=== PATIENT | female | born 1960 | race Caucasian/White ===

== ENCOUNTER 2017-09-02 13:18 | Emergency (ER) | payer MEDICAID ==
[~2017-09-02] VITALS: Ht 175.3 cm; Wt 90.9 kg
[~2017-09-02 13:18] MED LIST: CEPH-571 PO; CHOL500050 PO; FENO48TA15 PO; GABA600T2 PO; HYDR-569 PO; INSU100V36 SQ; LANTUS SQ; NEOM30OI16 TP
[2017-09-02] MEDS ORDERED: CYCL-1 PO (13:48)
[2017-09-02] MEDS ORDERED: HYDR-565 PO (13:48)
[2017-09-02 13:58] VITALS: BP 152/81
== END 2017-09-02 14:01 | disposition home or self-care (01) ==
LOC: ER 13:18
DX: S39.012A Strain of muscle, fascia and tendon of lower back, initial encounter (principal); M25.561 Pain in right knee; I10 Essential (primary) hypertension; E11.9 Type 2 diabetes mellitus without complications; G89.29 Other chronic pain; F17.200 Nicotine dependence, unspecified, uncomplicated; Z90.89 Acquired absence of other organs; Z98.890 Other specified postprocedural states; Z88.5 Allergy status to narcotic agent; Z79.4 Long term (current) use of insulin; Z79.899 Other long term (current) drug therapy; X50.1XXA Overexertion from prolonged static or awkward postures, initial encounter; Y93.02 Activity, running; Y92.89 Other specified places as the place of occurrence of the external cause; Y99.9 Unspecified external cause status
CPT/HCPCS: 73564; 99284; A6449

== ENCOUNTER 2017-10-21 08:08 | Emergency (ER) | payer MEDICAID ==
[~2017-10-21] VITALS: Ht 175.3 cm; Wt 90.0 kg
[~2017-10-21 08:08] MED LIST changes: +CYCL-1 PO
[2017-10-21 09:31] LABS: BASOPHILS % (AUTO) 0.5 % (0-1); EOSINOPHILS # (AUTO) 0.3 X10'3 (0-0.9); EOSINOPHILS % (AUTO) 3.2 % (0-6); HEMATOCRIT 40.6 % (35.0-45.0); HEMOGLOBIN 13.7 g/dl (12.0-16.0); LYMPHOCYTES # (AUTO) 2.4 X10'3 (1.1-4.8); LYMPHOCYTES % (AUTO) 25.7 % (21-51); MEAN CORPUSCULAR HEMOGLOBIN 27.3 PG (27.0-31.0); MEAN CORPUSCULAR HGB CONC 33.8 % (33.0-36.5); MEAN CORPUSCULAR VOLUME 80.9 FL (78-98); MEAN PLATELET VOLUME 8.6 FL (7.4-10.4); MONOCYTES # (AUTO) 0.5 X10'3 (0-0.9); MONOCYTES % (AUTO) 5.9 % (2-12); NEUTROPHILS % (AUTO) 64.7 % (42-75); PLATELET COUNT 216 X10'3 (140-440); RED BLOOD COUNT 5.02 X10'6 (4.20-5.60); RED CELL DISTRIBUTION WIDTH 13.6 % (11.5-14.5); WHITE BLOOD COUNT 9.2 X10'3 (4.5-11.0)
[2017-10-21 09:43] LABS: INR 0.9 INR; PARTIAL THROMBOPLASTIN TIME 26 SECONDS (22-32); PROTHROMBIN TIME 9.4 SECONDS (9.0-12.0)
[2017-10-21 09:48] LABS: ALANINE AMINOTRANSFERASE 11 U/L (12-78); ALBUMIN 3.6 G/DL (3.4-5.0); ALBUMIN/GLOBULIN RATIO 0.9 (1.1-1.5); ALKALINE PHOSPHATASE 85 IU/L (46-116); ANION GAP 11 (8-16); ASPARTATE AMINO TRANSFERASE 5 U/L (10-37); BILIRUBIN,TOTAL 0.3 MG/DL (0.1-1.0); BLOOD UREA NITROGEN 24 MG/DL (7-18); BUN/CREATININE RATIO 24.7 (6.6-38.0); CALCIUM 9.3 MG/DL (8.5-10.1); CHLORIDE 103 MMOL/L (99-107); CREATININE 0.97 MG/DL (0.40-0.90); GLUCOSE 337 MG/DL (70-104); POTASSIUM 4.7 MMOL/L (3.5-5.1); SODIUM 138 MMOL/L (135-145); TOTAL CARBON DIOXIDE 24.1 MMOL/L (24-32); TOTAL PROTEIN 7.5 G/DL (6.4-8.2); eGFR 59 ML/MIN
[2017-10-21] MEDS ORDERED: LIDO700A32 TOP (11:19)
[2017-10-21] MEDS ORDERED: CYCL-1 PO (11:19)
[2017-10-21] MEDS ORDERED: DICL100T2 PO (11:19)
[2017-10-21] MEDS ORDERED: DICL100G15 TOP (11:38)
[2017-10-21 11:46] VITALS: BP 160/110
== END 2017-10-21 11:48 | disposition home or self-care (01) ==
LOC: ER 08:09
DX: S16.1XXA Strain of muscle, fascia and tendon at neck level, initial encounter (principal); S29.019A Strain of muscle and tendon of unspecified wall of thorax, initial encounter; S39.012A Strain of muscle, fascia and tendon of lower back, initial encounter; S09.90XA Unspecified injury of head, initial encounter; I10 Essential (primary) hypertension; E11.9 Type 2 diabetes mellitus without complications; G89.29 Other chronic pain; Z98.890 Other specified postprocedural states; Z79.4 Long term (current) use of insulin; W01.0XXA Fall on same level from slipping, tripping and stumbling without subsequent striking against object, initial encounter; Y93.89 Activity, other specified; Y92.89 Other specified places as the place of occurrence of the external cause; Y99.8 Other external cause status
CPT/HCPCS: 36415; 70450; 72070; 72100; 72125; 80053; 85025; 85610; 85730; 99285

== ENCOUNTER 2018-09-12 14:33 | Emergency (ER) | payer MEDICAID ==
[~2018-09-12] VITALS: Ht 175.3 cm; Wt 89.5 kg
[~2018-09-12 14:33] MED LIST changes: +DICL100G15 TOP; +GABA600T13 PO; -GABA600T2 PO; +HYDR-4383 PO; -HYDR-569 PO; +LIDO700A32 TOP
[2018-09-12] MEDS ORDERED: CEPH-572 PO (17:02)
[2018-09-12 17:19] VITALS: BP 117/81
== END 2018-09-12 17:21 | disposition home or self-care (01) ==
LOC: ER 14:34
DX: S90.425A Blister (nonthermal), left lesser toe(s), initial encounter (principal); E11.42 Type 2 diabetes mellitus with diabetic polyneuropathy; I10 Essential (primary) hypertension; G89.29 Other chronic pain; F17.200 Nicotine dependence, unspecified, uncomplicated; Z90.89 Acquired absence of other organs; Z98.890 Other specified postprocedural states; Z88.5 Allergy status to narcotic agent; Z79.4 Long term (current) use of insulin; Z79.899 Other long term (current) drug therapy; W22.8XXA Striking against or struck by other objects, initial encounter; Y93.89 Activity, other specified; Y92.89 Other specified places as the place of occurrence of the external cause; Y99.8 Other external cause status
CPT/HCPCS: 73600; 73620; 82948; 99283

== ENCOUNTER 2019-06-22 14:14 | Emergency (ER) | payer MEDICAID ==
[~2019-06-22] VITALS: Ht 175.3 cm; Wt 91.0 kg
[2019-06-22 14:33] VITALS: BP 99/70
[2019-06-22] MEDS ORDERED: ketorolac trometh inj. 60 MG/2 ML VIAL IM ONE (15:30)
[2019-06-22] MEDS ORDERED: LIDOcaine 5% patch TP ONE (16:05)
== END 2019-06-22 16:15 | disposition home or self-care (01) ==
LOC: ER 14:16
DX: S33.5XXA Sprain of ligaments of lumbar spine, initial encounter (principal); G89.29 Other chronic pain; E11.42 Type 2 diabetes mellitus with diabetic polyneuropathy; I10 Essential (primary) hypertension; Z90.89 Acquired absence of other organs; Z98.890 Other specified postprocedural states; Z88.5 Allergy status to narcotic agent; Z79.4 Long term (current) use of insulin; Z79.899 Other long term (current) drug therapy; W18.39XA Other fall on same level, initial encounter; Y93.89 Activity, other specified; Y92.89 Other specified places as the place of occurrence of the external cause; Y99.8 Other external cause status
CPT/HCPCS: 72100; 96372; 99283; J1885

== ENCOUNTER 2020-03-05 15:31 | Emergency (ER) | payer MEDICAID ==
[~2020-03-05] VITALS: Ht 175.3 cm; Wt 79.5 kg
[~2020-03-05 15:31] MED LIST changes: +ALBU8HFA PO; +ASPI-1071 PO; +ATOR20TA66 PO; -CEPH-571 PO; +CEPH500C5 PO; -CHOL500050 PO; -CYCL-1 PO; -DICL100G15 TOP; -FENO48TA15 PO; +FLUO20CA39 PO; +FLUT16SP2 BOTHNARES; +GABA-530 PO; -GABA600T13 PO; -HYDR-4383 PO; +INSU100I31 SQ; -INSU100V36 SQ; -LANTUS SQ; -LIDO700A32 TOP; +LISI10TA4 PO; +MV-M1TAB19 PO; +NAPR-1154 PO; -NEOM30OI16 TP; +OMEP-50 PO; +PRAZ1CAP5 PO; +[UNRECOGNIZED DRUG - REMARK] SQVAC
[2020-03-05 16:53] LABS: ALANINE AMINOTRANSFERASE 14 U/L (12-78); ALKALINE PHOSPHATASE 63 IU/L (46-116); ANION GAP 10 (8-16); ASPARTATE AMINO TRANSFERASE 10 U/L (10-37); BILIRUBIN,TOTAL 0.4 MG/DL (0.1-1.0); BLOOD UREA NITROGEN 32 MG/DL (7-18); BUN/CREATININE RATIO 15.7 (6.6-38.0); CALCIUM 9.1 MG/DL (8.5-10.1); CHLORIDE 110 MMOL/L (99-107); CREATININE 2.04 MG/DL (0.40-0.90); GLUCOSE 58 MG/DL (70-104); POTASSIUM 3.5 MMOL/L (3.5-5.1); SODIUM 144 MMOL/L (135-145); TOTAL CARBON DIOXIDE 24.2 MMOL/L (24-32); eGFR 25 ML/MIN
[2020-03-05 16:57] LABS: BASOPHILS # (AUTO) 0.1 X10'3 (0-0.2); BASOPHILS % (AUTO) 0.9 % (0-1); EOSINOPHILS # (AUTO) 0.2 X10'3 (0-0.9); EOSINOPHILS % (AUTO) 2.5 % (0-6); HEMATOCRIT 33.3 % (35.0-45.0); LYMPHOCYTES # (AUTO) 3.3 X10'3 (1.1-4.8); LYMPHOCYTES % (AUTO) 39.4 % (21-51); MEAN CORPUSCULAR HEMOGLOBIN 27.2 PG (27.0-31.0); MEAN CORPUSCULAR HGB CONC 32.9 g/dL (33.0-36.5); MEAN CORPUSCULAR VOLUME 82.8 FL (78-98); MEAN PLATELET VOLUME 9.3 FL (7.4-10.4); MONOCYTES # (AUTO) 0.5 X10'3 (0-0.9); MONOCYTES % (AUTO) 6.1 % (2-12); NEUTROPHILS # (AUTO) 4.3 X10'3 (1.8-7.7); NEUTROPHILS % (AUTO) 51.1 % (42-75); PLATELET COUNT 182 X10'3 (140-440); RED BLOOD COUNT 4.02 X10'6 (4.20-5.60); RED CELL DISTRIBUTION WIDTH 13.2 % (11.5-14.5); WHITE BLOOD COUNT 8.5 X10'3 (4.5-11.0)
[2020-03-05] MEDS ORDERED: normal saline 1000ml 1,000 ML IV ONE (17:25)
[2020-03-05 17:37] LABS: ETHANOL < 0.010 GM/DL (0.0-0.010)
[2020-03-05] MEDS ORDERED: dextrose 50%-water 50ml dispensing syringe IV ONE (17:55)
[2020-03-05 18:13] LABS: MAGNESIUM 1.7 MG/DL (1.5-2.4)
[2020-03-05 19:30] LABS: CLARITY,URINE SLIGHTLY CLOUDY (Clear); COLOR,URINE YELLOW (Yellow); GLUCOSE, URINE >=1000 mg/dl (Neg); KETONES,URINE NEGATIVE (Neg); LEUKOCYTE ESTERASE ,URINE SMALL (Neg); NITRITES, URINE NEGATIVE (Neg); OCCULT BLOOD,URINE NEGATIVE (Neg); PH,URINE 5.5 (4.8-8.0); PROTEIN,URINE NEGATIVE (Neg); UROBILINOGEN,URINE 0.2 E.U/dL (0.2-1.0)
[2020-03-05 19:36] LABS: UA COLLECTION TYPE CLN CATCH MIDSTREAM
[2020-03-05 19:39] LABS: RBC,URINE 0-2 /HPF (0-2); WBC,URINE 0-4 /HPF (0-4)
[2020-03-05 19:40] LABS: BACTERIA,URINE FEW /HPF (Neg); MUCUS STRANDS MODERATE /LPF (Neg); SQUAMOUS EPITHELIAL CELL,UR MANY /LPF (FEW)
[2020-03-05 20:08] VITALS: BP 138/80
== END 2020-03-05 20:10 | disposition home or self-care (01) ==
LOC: ER 15:31
DX: E86.0 Dehydration (principal); R53.1 Weakness; R53.83 Other fatigue; E11.42 Type 2 diabetes mellitus with diabetic polyneuropathy; I10 Essential (primary) hypertension; G89.29 Other chronic pain; F17.200 Nicotine dependence, unspecified, uncomplicated; Z87.01 Personal history of pneumonia (recurrent); Z98.890 Other specified postprocedural states; Z60.2 Problems related to living alone; Z59.0 Homelessness; Z88.8 Allergy status to other drugs, medicaments and biological substances; Z79.82 Long term (current) use of aspirin; Z79.2 Long term (current) use of antibiotics; Z79.4 Long term (current) use of insulin; Z79.899 Other long term (current) drug therapy
CPT/HCPCS: 36415; 80053; 80320; 81001; 82948; 83735; 85025; 96361; 96374; 99285; J7030; 96360

== ENCOUNTER 2020-05-05 09:29 | Emergency (ER) | payer MEDICAID ==
[~2020-05-05] VITALS: Ht 175.3 cm; Wt 81.8 kg
--- NOTE | 2020-05-05 09:36 | NUR ---
EKG 0904
[2020-05-05] MEDS ORDERED: LORazepam 2 mg/ml vial IV ONE (10:05)
[2020-05-05] MEDS ORDERED: ondansetron/PF 4mg/2ml inj IV ONE (10:05)
[2020-05-05] MEDS ORDERED: morphine 4 MG/ML inj SYRINge IV ONE (10:05)
[2020-05-05 10:37] LABS: BASOPHILS # (AUTO) 0.1 X10'3 (0-0.2); BASOPHILS % (AUTO) 1.2 % (0-1); EOSINOPHILS # (AUTO) 0.3 X10'3 (0-0.9); EOSINOPHILS % (AUTO) 3.4 % (0-6); HEMATOCRIT 35.7 % (35.0-45.0); HEMOGLOBIN 11.6 g/dl (12.0-16.0); LYMPHOCYTES # (AUTO) 2.7 X10'3 (1.1-4.8); LYMPHOCYTES % (AUTO) 31.8 % (21-51); MEAN CORPUSCULAR HEMOGLOBIN 27.2 PG (27.0-31.0); MEAN CORPUSCULAR HGB CONC 32.6 g/dL (33.0-36.5); MEAN CORPUSCULAR VOLUME 83.4 FL (78-98); MEAN PLATELET VOLUME 8.2 FL (7.4-10.4); MONOCYTES # (AUTO) 0.5 X10'3 (0-0.9); MONOCYTES % (AUTO) 5.9 % (2-12); NEUTROPHILS # (AUTO) 4.9 X10'3 (1.8-7.7); NEUTROPHILS % (AUTO) 57.7 % (42-75); PLATELET COUNT 228 X10'3 (140-440); RED BLOOD COUNT 4.28 X10'6 (4.20-5.60); RED CELL DISTRIBUTION WIDTH 13.7 % (11.5-14.5); WHITE BLOOD COUNT 8.5 X10'3 (4.5-11.0)
[2020-05-05 10:52] LABS: PARTIAL THROMBOPLASTIN TIME 27 SECONDS (22-32)
[2020-05-05 10:56] LABS: ALANINE AMINOTRANSFERASE 26 U/L (12-78); ALBUMIN 3.3 G/DL (3.4-5.0); ALKALINE PHOSPHATASE 56 IU/L (46-116); ANION GAP 7 (8-16); ASPARTATE AMINO TRANSFERASE 17 U/L (10-37); BILIRUBIN,TOTAL 0.2 MG/DL (0.1-1.0); BLOOD UREA NITROGEN 18 MG/DL (7-18); CALCIUM 9.1 MG/DL (8.5-10.1); CHLORIDE 107 MMOL/L (99-107); GLUCOSE 164 MG/DL (70-104); POTASSIUM 4.4 MMOL/L (3.5-5.1); SODIUM 144 MMOL/L (135-145); TOTAL CARBON DIOXIDE 29.7 MMOL/L (24-32); TOTAL PROTEIN 6.6 G/DL (6.4-8.2); eGFR 57 ML/MIN
[2020-05-05] MEDS ORDERED: BACL-11 PO (12:20)
[2020-05-05 12:38] VITALS: BP 154/69
== END 2020-05-05 12:30 | disposition home or self-care (01) ==
LOC: ER 09:30
DX: R59.1 Generalized enlarged lymph nodes (principal); M54.2 Cervicalgia; J02.9 Acute pharyngitis, unspecified; R06.02 Shortness of breath; R07.89 Other chest pain; E11.42 Type 2 diabetes mellitus with diabetic polyneuropathy; I10 Essential (primary) hypertension; G89.29 Other chronic pain; Z87.01 Personal history of pneumonia (recurrent); Z86.73 Personal history of transient ischemic attack (TIA), and cerebral infarction without residual deficits; Z90.89 Acquired absence of other organs; Z98.890 Other specified postprocedural states; Z59.0 Homelessness; Z60.2 Problems related to living alone; Z88.8 Allergy status to other drugs, medicaments and biological substances; Z79.82 Long term (current) use of aspirin; Z79.4 Long term (current) use of insulin; Z79.899 Other long term (current) drug therapy; Z79.2 Long term (current) use of antibiotics
CPT/HCPCS: 36415; 71045; 80053; 83880; 84484; 85025; 85610; 85730; 93005; 96374; 96375; 99285; J2060; J2270; J2405

== ENCOUNTER 2020-06-06 10:29 | Emergency (ER) | payer MEDICAID ==
[~2020-06-06] VITALS: Ht 175.3 cm; Wt 87.0 kg
[~2020-06-06 10:29] MED LIST changes: +BACL-11 PO
[2020-06-06 11:20] VITALS: BP 194/93
== END 2020-06-06 12:00 | disposition home or self-care (01) ==
LOC: ER 10:30
DX: J02.9 Acute pharyngitis, unspecified (principal); M25.562 Pain in left knee; I10 Essential (primary) hypertension; E11.9 Type 2 diabetes mellitus without complications; G89.29 Other chronic pain; Z87.01 Personal history of pneumonia (recurrent); Z86.73 Personal history of transient ischemic attack (TIA), and cerebral infarction without residual deficits; Z90.89 Acquired absence of other organs; Z98.890 Other specified postprocedural states; Z60.2 Problems related to living alone; Z59.0 Homelessness; Z88.8 Allergy status to other drugs, medicaments and biological substances; Z79.82 Long term (current) use of aspirin; Z79.4 Long term (current) use of insulin; Z79.899 Other long term (current) drug therapy; Z79.2 Long term (current) use of antibiotics
CPT/HCPCS: 99281

== ENCOUNTER 2021-04-04 06:19 | Emergency (ER) | payer MEDICAID ==
[~2021-04-04] VITALS: Ht 175.3 cm; Wt 91.4 kg
[~2021-04-04 06:19] MED LIST changes: +CEPH-585 PO; -CEPH500C5 PO; +LISI10TA27 PO; -LISI10TA4 PO
[2021-04-04] MEDS ORDERED: normal saline 1000ML IV soln IVB ONE ×2 (06:35→08:15)
[2021-04-04 07:36] LABS: BASOPHILS # (AUTO) 0.1 X10'3 (0-0.2); BASOPHILS % (AUTO) 1.1 % (0-1); EOSINOPHILS # (AUTO) 0.4 X10'3 (0-0.9); EOSINOPHILS % (AUTO) 4.3 % (0-6); HEMATOCRIT 32.2 % (35.0-45.0); HEMOGLOBIN 10.7 g/dl (12.0-16.0); LYMPHOCYTES # (AUTO) 3.2 X10'3 (1.1-4.8); LYMPHOCYTES % (AUTO) 34.1 % (21-51); MEAN CORPUSCULAR HEMOGLOBIN 27.5 PG (27.0-31.0); MEAN CORPUSCULAR HGB CONC 33.1 g/dL (33.0-36.5); MEAN CORPUSCULAR VOLUME 83.1 FL (78-98); MONOCYTES # (AUTO) 0.6 X10'3 (0-0.9); MONOCYTES % (AUTO) 6.6 % (2-12); NEUTROPHILS # (AUTO) 5.1 X10'3 (1.8-7.7); NEUTROPHILS % (AUTO) 53.9 % (42-75); PLATELET COUNT 200 X10'3 (140-440); RED BLOOD COUNT 3.87 X10'6 (4.20-5.60); RED CELL DISTRIBUTION WIDTH 13.5 % (11.5-14.5); WHITE BLOOD COUNT 9.5 X10'3 (4.5-11.0)
[2021-04-04 07:51] LABS: ALANINE AMINOTRANSFERASE 20 U/L (12-78); ALBUMIN 3.2 G/DL (3.4-5.0); ALKALINE PHOSPHATASE 72 IU/L (46-116); ANION GAP 11 (8-16); ASPARTATE AMINO TRANSFERASE 14 U/L (10-37); BILIRUBIN,TOTAL 0.2 MG/DL (0.1-1.0); BLOOD UREA NITROGEN 41 MG/DL (7-18); BUN/CREATININE RATIO 25.3 (6.6-38.0); CALCIUM 8.5 MG/DL (8.5-10.1); CHLORIDE 109 MMOL/L (99-107); CREATININE 1.62 MG/DL (0.40-0.90); ETHANOL < 0.010 GM/DL (0.0-0.010); GLUCOSE 248 MG/DL (70-104); POTASSIUM 4.5 MMOL/L (3.5-5.1); SODIUM 144 MMOL/L (135-145); TOTAL CARBON DIOXIDE 23.7 MMOL/L (24-32); TOTAL PROTEIN 6.4 G/DL (6.4-8.2); eGFR 32 ML/MIN
[2021-04-04 09:06] LABS: CLARITY,URINE SLIGHTLY CLOUDY (Clear); COLOR,URINE YELLOW (Yellow); GLUCOSE, URINE 250 mg/dl (Neg); KETONES,URINE NEGATIVE (Neg); LEUKOCYTE ESTERASE ,URINE NEGATIVE (Neg); NITRITES, URINE NEGATIVE (Neg); OCCULT BLOOD,URINE SMALL (Neg); PH,URINE 5.5 (4.8-8.0); PROTEIN,URINE 100 mg/dl (Neg); UROBILINOGEN,URINE 0.2 E.U/dL (0.2-1.0)
[2021-04-04 09:13] LABS: UA COLLECTION TYPE STRAIGHT CATH
[2021-04-04 09:16] LABS: WBC,URINE 0-4 /HPF (0-4)
[2021-04-04 09:17] LABS: AMORPHOUS URATES 1+; BACTERIA,URINE FEW /HPF (Neg); HYALINE CASTS 0-3 /LPF (NEGATIVE); RBC,URINE 0-2 /HPF (0-2); SQUAMOUS EPITHELIAL CELL,UR FEW /LPF (FEW)
[2021-04-04 09:22] LABS: URINE AMPHETAMINE SCREEN NEGATIVE (Neg); URINE BARBITUATE SCREEN NEGATIVE (Neg); URINE BENZODIAZEPINES SCREEN NEGATIVE (Neg); URINE CANNABINOID SCREEN NEGATIVE (Neg); URINE COCAINE SCREEN NEGATIVE (Neg); URINE METHADONE SCREEN NEGATIVE (Neg); URINE OPIATE SCREEN NEGATIVE (Neg); URINE PHENCYCLIDINE SCREEN NEGATIVE (Neg)
[2021-04-04 12:40] VITALS: BP 191/86
== END 2021-04-04 13:55 | disposition home or self-care (01) ==
LOC: ER 06:20
DX: R41.0 Disorientation, unspecified (principal); R55 Syncope and collapse; R53.1 Weakness; R56.9 Unspecified convulsions; E11.42 Type 2 diabetes mellitus with diabetic polyneuropathy; I10 Essential (primary) hypertension; G89.29 Other chronic pain; Z86.73 Personal history of transient ischemic attack (TIA), and cerebral infarction without residual deficits; Z87.01 Personal history of pneumonia (recurrent); Z90.89 Acquired absence of other organs; Z98.890 Other specified postprocedural states; Z60.2 Problems related to living alone; Z59.0 Homelessness; Z88.8 Allergy status to other drugs, medicaments and biological substances; Z79.82 Long term (current) use of aspirin; Z79.4 Long term (current) use of insulin; Z79.2 Long term (current) use of antibiotics; Z79.899 Other long term (current) drug therapy
CPT/HCPCS: 36415; 70450; 71045; 80053; 80305; 80320; 81001; 82140; 85025; 93005; 96360; 96361; 99285; J7030

== ENCOUNTER 2021-09-03 17:27 | Emergency (ER) | payer MEDICAID ==
[~2021-09-03] VITALS: Ht 175.3 cm; Wt 96.9 kg
[2021-09-03 18:16] LABS: BASOPHILS # (AUTO) 0.1 X10'3 (0-0.2); BASOPHILS % (AUTO) 0.6 % (0-1); EOSINOPHILS # (AUTO) 0.4 X10'3 (0-0.9); EOSINOPHILS % (AUTO) 4.4 % (0-6); HEMATOCRIT 32.1 % (35.0-45.0); HEMOGLOBIN 10.6 g/dl (12.0-16.0); LYMPHOCYTES # (AUTO) 2.2 X10'3 (1.1-4.8); LYMPHOCYTES % (AUTO) 21.9 % (21-51); MEAN CORPUSCULAR HGB CONC 33.1 g/dL (33.0-36.5); MEAN CORPUSCULAR VOLUME 81.7 FL (78-98); MEAN PLATELET VOLUME 8.3 FL (7.4-10.4); MONOCYTES # (AUTO) 0.7 X10'3 (0-0.9); MONOCYTES % (AUTO) 6.9 % (2-12); NEUTROPHILS # (AUTO) 6.6 X10'3 (1.8-7.7); NEUTROPHILS % (AUTO) 66.2 % (42-75); PLATELET COUNT 242 X10'3 (140-440); RED BLOOD COUNT 3.94 X10'6 (4.20-5.60); RED CELL DISTRIBUTION WIDTH 14.2 % (11.5-14.5)
[2021-09-03 18:22] LABS: ALANINE AMINOTRANSFERASE 22 U/L (12-78); ALBUMIN 2.9 G/DL (3.4-5.0); ALBUMIN/GLOBULIN RATIO 0.7 (1.1-1.5); ALKALINE PHOSPHATASE 63 IU/L (46-116); ANION GAP 10 (8-16); ASPARTATE AMINO TRANSFERASE 23 U/L (10-37); BILIRUBIN,TOTAL 0.2 MG/DL (0.1-1.0); BLOOD UREA NITROGEN 29 MG/DL (7-18); BUN/CREATININE RATIO 16.9 (6.6-38.0); CALCIUM 9.2 MG/DL (8.5-10.1); CHLORIDE 106 MMOL/L (99-107); CREATININE 1.72 MG/DL (0.40-0.90); GLUCOSE 134 MG/DL (70-104); LIPASE 55 U/L (73-393); POTASSIUM 4.7 MMOL/L (3.5-5.1); SODIUM 140 MMOL/L (135-145); TOTAL CARBON DIOXIDE 24.4 MMOL/L (24-32); eGFR 30 ML/MIN
[2021-09-03 23:18] VITALS: BP 215/89
[2021-09-03 23:51] LABS: CLARITY,URINE CLOUDY (Clear); COLOR,URINE YELLOW (Yellow); GLUCOSE, URINE 100 mg/dl (Neg); KETONES,URINE NEGATIVE (Neg); LEUKOCYTE ESTERASE ,URINE NEGATIVE (Neg); NITRITES, URINE NEGATIVE (Neg); OCCULT BLOOD,URINE LARGE (Neg); PROTEIN,URINE >=300 mg/dl (Neg); UROBILINOGEN,URINE 0.2 E.U/dL (0.2-1.0)
[2021-09-03 23:56] LABS: UA COLLECTION TYPE NON-SPECIFIED
[2021-09-03 23:59] LABS: WBC,URINE 0-4 /HPF (0-4)
[2021-09-04] LABS: BACTERIA,URINE 1+ /HPF (Neg); MUCUS STRANDS FEW /LPF (Neg); SQUAMOUS EPITHELIAL CELL,UR FEW /LPF (FEW)
[2021-09-04 00:01] LABS: CELLULAR CAST 0-4 /LPF (NEGATIVE)
[2021-09-04 00:04] LABS: YEAST FEW /HPF (NEGATIVE)
[2021-09-04] MEDS ORDERED: acetaminophen w/codeine (30MG) #3 tablet PO ONE (00:45)
== END 2021-09-04 01:01 | disposition home or self-care (01) ==
LOC: ER 17:27
DX: R10.11 Right upper quadrant pain (principal); I10 Essential (primary) hypertension; E11.42 Type 2 diabetes mellitus with diabetic polyneuropathy; G89.29 Other chronic pain; F17.200 Nicotine dependence, unspecified, uncomplicated; Z86.73 Personal history of transient ischemic attack (TIA), and cerebral infarction without residual deficits; Z87.01 Personal history of pneumonia (recurrent); Z98.890 Other specified postprocedural states; Z90.89 Acquired absence of other organs; Z60.2 Problems related to living alone; Z59.00 Homelessness unspecified; Z88.8 Allergy status to other drugs, medicaments and biological substances; Z79.82 Long term (current) use of aspirin; Z79.2 Long term (current) use of antibiotics; Z79.4 Long term (current) use of insulin; Z79.899 Other long term (current) drug therapy
CPT/HCPCS: 36415; 74018; 80053; 81001; 83690; 85025; 87088; 99284

== ENCOUNTER 2021-09-18 12:30 | Emergency (ER) | payer MEDICAID ==
[~2021-09-18] VITALS: Ht 175.3 cm; Wt 96.8 kg
[~2021-09-18 12:30] MED LIST changes: -OMEP-50 PO; +OMEP20CA16 PO
[2021-09-18 12:49] VITALS: BP 186/85
[2021-09-18 13:16] LABS: BASOPHILS # (AUTO) 0.1 X10'3 (0-0.2); BASOPHILS % (AUTO) 1.1 % (0-1); EOSINOPHILS # (AUTO) 0.4 X10'3 (0-0.9); EOSINOPHILS % (AUTO) 3.7 % (0-6); HEMATOCRIT 36.4 % (35.0-45.0); HEMOGLOBIN 11.8 g/dl (12.0-16.0); LYMPHOCYTES # (AUTO) 2.3 X10'3 (1.1-4.8); LYMPHOCYTES % (AUTO) 21.6 % (21-51); MEAN CORPUSCULAR HEMOGLOBIN 26.9 PG (27.0-31.0); MEAN CORPUSCULAR HGB CONC 32.3 g/dL (33.0-36.5); MEAN CORPUSCULAR VOLUME 83.1 FL (78-98); MEAN PLATELET VOLUME 8.4 FL (7.4-10.4); MONOCYTES # (AUTO) 0.8 X10'3 (0-0.9); MONOCYTES % (AUTO) 7.3 % (2-12); NEUTROPHILS # (AUTO) 7.2 X10'3 (1.8-7.7); NEUTROPHILS % (AUTO) 66.3 % (42-75); PLATELET COUNT 252 X10'3 (140-440); RED BLOOD COUNT 4.38 X10'6 (4.20-5.60); RED CELL DISTRIBUTION WIDTH 14.4 % (11.5-14.5); WHITE BLOOD COUNT 10.8 X10'3 (4.5-11.0)
[2021-09-18 13:17] LABS: URINE HCG NEGATIVE (NEG)
[2021-09-18 13:20] LABS: CLARITY,URINE CLOUDY (Clear); COLOR,URINE YELLOW (Yellow); GLUCOSE, URINE 250 mg/dl (Neg); KETONES,URINE NEGATIVE (Neg); LEUKOCYTE ESTERASE ,URINE NEGATIVE (Neg); NITRITES, URINE NEGATIVE (Neg); OCCULT BLOOD,URINE MODERATE (Neg); PH,URINE 5.5 (4.8-8.0); PROTEIN,URINE >=300 mg/dl (Neg); UROBILINOGEN,URINE 0.2 E.U/dL (0.2-1.0)
[2021-09-18 13:23] LABS: UA COLLECTION TYPE CLN CATCH MIDSTREAM
[2021-09-18 13:25] LABS: SQUAMOUS EPITHELIAL CELL,UR MANY /LPF (FEW)
[2021-09-18 13:26] LABS: BACTERIA,URINE 2+ /HPF (Neg)
[2021-09-18 13:46] LABS: ALANINE AMINOTRANSFERASE 19 U/L (12-78); ALBUMIN/GLOBULIN RATIO 0.9 (1.1-1.5); ALKALINE PHOSPHATASE 70 IU/L (46-116); ANION GAP 11 (8-16); ASPARTATE AMINO TRANSFERASE 13 U/L (10-37); BILIRUBIN,TOTAL 0.1 MG/DL (0.1-1.0); BLOOD UREA NITROGEN 34 MG/DL (7-18); BUN/CREATININE RATIO 19.3 (6.6-38.0); CALCIUM 8.7 MG/DL (8.5-10.1); CHLORIDE 109 MMOL/L (99-107); CREATININE 1.76 MG/DL (0.40-0.90); GLUCOSE 88 MG/DL (70-104); LIPASE 456 U/L (73-393); POTASSIUM 4.7 MMOL/L (3.5-5.1); SODIUM 143 MMOL/L (135-145); TOTAL CARBON DIOXIDE 23.3 MMOL/L (24-32); TOTAL PROTEIN 6.3 G/DL (6.4-8.2); eGFR 29 ML/MIN
--- NOTE | 2021-09-18 14:56 | NUR ---
PATIENT REQUESTED TO HAVE BG CHECKED, STATES IT HAS BEEN A WHILE SINCE SHE HAS EATEN ANYTHING. BG 67, PATIENT GIVEN CRACKERS AND JUICE.
== END 2021-09-18 19:40 | disposition left against medical advice (07) ==
LOC: ER 12:31
DX: R10.11 Right upper quadrant pain (principal); R19.7 Diarrhea, unspecified; E11.42 Type 2 diabetes mellitus with diabetic polyneuropathy; I10 Essential (primary) hypertension; G89.29 Other chronic pain; Z86.73 Personal history of transient ischemic attack (TIA), and cerebral infarction without residual deficits; Z87.01 Personal history of pneumonia (recurrent); Z90.89 Acquired absence of other organs; Z98.890 Other specified postprocedural states; Z60.2 Problems related to living alone; Z59.00 Homelessness unspecified; Z88.8 Allergy status to other drugs, medicaments and biological substances; Z79.82 Long term (current) use of aspirin; Z79.2 Long term (current) use of antibiotics; Z79.4 Long term (current) use of insulin; Z79.899 Other long term (current) drug therapy
CPT/HCPCS: 36415; 80053; 81001; 81025; 82948; 83690; 85025; 99283

== ENCOUNTER 2022-12-30 18:00 | Inpatient (IN) | payer MEDICAID ==
[~2022-12-30] VITALS: Ht 157.5 cm; Wt 59.1 kg
--- NOTE | 2022-12-30 18:38 | NUR ---
assumed care from apurva kraus.
[2022-12-30 19:01] LABS: BASOPHILS % (AUTO) 0.4 % (0-1); EOSINOPHILS % (AUTO) 0.4 % (0-6); HEMOGLOBIN 12.1 g/dl (12.0-16.0); LYMPHOCYTES % (AUTO) 9.5 % (21-51); MEAN CORPUSCULAR HEMOGLOBIN 27.1 PG (27.0-31.0); MEAN CORPUSCULAR HGB CONC 32.8 g/dL (33.0-36.5); MEAN CORPUSCULAR VOLUME 82.7 FL (78-98); MEAN PLATELET VOLUME 8.8 FL (7.4-10.4); MONOCYTES # (AUTO) 0.9 X10'3 (0-0.9); MONOCYTES % (AUTO) 8.5 % (2-12); NEUTROPHILS # (AUTO) 8.9 X10'3 (1.8-7.7); NEUTROPHILS % (AUTO) 81.2 % (42-75); PLATELET COUNT 220 X10'3 (140-440); RED BLOOD COUNT 4.47 X10'6 (4.20-5.60); RED CELL DISTRIBUTION WIDTH 16.2 % (11.5-14.5); WHITE BLOOD COUNT 10.9 X10'3 (4.5-11.0)
[2022-12-30 19:13] LABS: ALANINE AMINOTRANSFERASE 249 U/L (12-78); ALBUMIN/GLOBULIN RATIO 0.9 (1.1-1.5); ALKALINE PHOSPHATASE 59 IU/L (46-116); ANION GAP 18 (8-16); ASPARTATE AMINO TRANSFERASE 29 U/L (10-37); BILIRUBIN,TOTAL 0.6 MG/DL (0.1-1.0); BLOOD UREA NITROGEN 53 MG/DL (7-18); BUN/CREATININE RATIO 20.2 (10.0-20.0); CHLORIDE 107 MMOL/L (99-107); CREATININE 2.63 MG/DL (0.40-0.90); GLUCOSE 186 MG/DL (70-104); MAGNESIUM 2.4 MG/DL (1.5-2.4); POTASSIUM 3.1 MMOL/L (3.5-5.1); SODIUM 144 MMOL/L (135-145); TOTAL CARBON DIOXIDE 19.1 MMOL/L (24-32); TOTAL PROTEIN 6.3 G/DL (6.4-8.2); eGFR 18 ML/MIN
[2022-12-30 19:42] LABS: CLARITY,URINE SLIGHTLY CLOUDY (Clear); COLOR,URINE YELLOW (Yellow); GLUCOSE, URINE NEGATIVE (Neg); KETONES,URINE TRACE mg/dl (Neg); LEUKOCYTE ESTERASE ,URINE NEGATIVE (Neg); NITRITES, URINE NEGATIVE (Neg); OCCULT BLOOD,URINE TRACE-INTACT (Neg); PROTEIN,URINE 100 mg/dl (Neg); UROBILINOGEN,URINE 0.2 E.U/dL (0.2-1.0)
[2022-12-30 19:48] LABS: UA COLLECTION TYPE STRAIGHT CATH
[2022-12-30 19:49] LABS: CELLULAR CAST 0-4 /LPF (NEGATIVE); COARSE GRANULAR CAST 0-3 /LPF (NEGATIVE); SQUAMOUS EPITHELIAL CELL,UR FEW /LPF (FEW)
[2022-12-30 19:52] LABS: AMORPHOUS URATES 1+; BACTERIA,URINE NONE SEEN /HPF (Neg)
[2022-12-30] MEDS ORDERED: CefTRIAXone 2gm/D5W 50ml BAG 50 ML IV ONE (20:05)
--- NOTE | 2022-12-30 20:30 | NUR ---
attempted to complete med rec, pt does not know pharmacy or which meds she takes nor does family at this itme.
[2022-12-30] MEDS ORDERED: temazepam 15mg capsule PO PRN (21:00)
[2022-12-30] MEDS ORDERED: ondansetron/PF 4mg/2ml inj IV PRN (21:55)
[2022-12-30] MEDS ORDERED: acetaminophen 325mg tablet PO PRN (21:55)
[2022-12-30] MEDS ORDERED: diphenhydrAMINE 50 mg/ml inj IV PRN (21:55)
[2022-12-30] MEDS ORDERED: ondansetron 4mg rapidly disintigrating tab PO PRN (21:55)
[2022-12-30] MEDS ORDERED: diphenhydrAMINE 25mg capsule PO PRN (21:55)
[2022-12-30] MEDS ORDERED: acetaminophen 650mg rectal suppository RC PRN (21:55)
[2022-12-30] MEDS ORDERED: potassium Cl 40MEQ/1/2NS 520ml 520 ML IV PRN (21:55)
[2022-12-30] MEDS ORDERED: magnesium 2GM in 50ml NS 50 ML IV PRN (21:55)
[2022-12-30] MEDS ORDERED: mag hydrox/Alum hydrox/simeth 30ml oral suspension PO PRN (21:55)
[2022-12-30] MEDS ORDERED: magnesium 4gm in 100ml NS 100 ML IV PRN (21:55)
[2022-12-30] MEDS ORDERED: magnesium Cl slow-release 64mg tablet PO PRN (21:55)
[2022-12-30] MEDS ORDERED: potassium Cl 20 mEq SR tablet PO PRN (21:55)
[2022-12-30] MEDS ORDERED: dextrose 50%-water 50ml dispensing syringe IV PRN ×2 (22:05)
[2022-12-30] MEDS ORDERED: DEXTROSE 15 GM of carb/4 tabs (each vial/BOTTLE has 4 tablets) PO PRN (22:05)
[2022-12-30] MEDS ORDERED: glucagon, human recombinant 1mg kit SUBCUT PRN (22:05)
[2022-12-30] MEDS ORDERED: MESSAGE TO PHARMACY PO ONE (22:05)
[2022-12-30 22:29] LABS: PHOSPHORUS 3.5 MG/DL (2.3-4.5)
[2022-12-30 22:31] LABS: HEMOGLOBIN A1C 6.3 % (4.5-6.2)
[2022-12-30 22:32] LABS: APTT 26 SECONDS (22-32)
[2022-12-30 22:43] LABS: CREATINE KINASE 70 U/L (26-192); LIPASE 54 U/L (73-393)
[2022-12-30] MEDS: normal saline 1000ml 1,000 ML IV SCH (22:45)
[2022-12-30 23:20] VITALS: BP 183/78
--- NOTE | 2022-12-30 23:20 | NUR ---
PATIENT ADMITTED TO ROOM 4020B FROM ER FOR ARF AND ALOC. PLACED COMFORTABLE IN BED. VITAL SIGNS TAKEN AND RECORDED.
--- NOTE | 2022-12-30 23:45 | NUR ---
CALLED DR. SONI WAS INFORMED OF PATIENT'S HIGH BLOOD PRESSURE 183/78 HR 71 WITH ORDER TO GIVE HYDRALAZINE 15MG IV Q6H PRN FOR SBP ABOVE 160.
[2022-12-30 23:47] LABS: URINE AMPHETAMINE SCREEN NEGATIVE (Neg); URINE BARBITUATE SCREEN NEGATIVE (Neg); URINE BENZODIAZEPINES SCREEN NEGATIVE (Neg); URINE CANNABINOID SCREEN NEGATIVE (Neg); URINE COCAINE SCREEN NEGATIVE (Neg); URINE METHADONE SCREEN NEGATIVE (Neg); URINE OPIATE SCREEN NEGATIVE (Neg); URINE PHENCYCLIDINE SCREEN NEGATIVE (Neg)
[2022-12-30] MEDS: hydrALAZINE 20mg/ml inj. IV PRN (23:58)
[2022-12-31 02:00] VITALS: BP 138/67
[2022-12-31 06:00] VITALS: BP 167/65
[2022-12-31 06:08] LABS: BASOPHILS # (AUTO) 0.1 X10'3 (0-0.2); BASOPHILS % (AUTO) 0.5 % (0-1); EOSINOPHILS # (AUTO) 0.1 X10'3 (0-0.9); EOSINOPHILS % (AUTO) 0.7 % (0-6); HEMATOCRIT 31.1 % (35.0-45.0); HEMOGLOBIN 10.3 g/dl (12.0-16.0); LYMPHOCYTES # (AUTO) 1.3 X10'3 (1.1-4.8); LYMPHOCYTES % (AUTO) 12.9 % (21-51); MEAN CORPUSCULAR HEMOGLOBIN 27.4 PG (27.0-31.0); MEAN CORPUSCULAR HGB CONC 33.2 g/dL (33.0-36.5); MEAN CORPUSCULAR VOLUME 82.7 FL (78-98); MEAN PLATELET VOLUME 8.9 FL (7.4-10.4); MONOCYTES # (AUTO) 1.1 X10'3 (0-0.9); MONOCYTES % (AUTO) 10.4 % (2-12); NEUTROPHILS # (AUTO) 7.7 X10'3 (1.8-7.7); NEUTROPHILS % (AUTO) 75.5 % (42-75); PLATELET COUNT 189 X10'3 (140-440); RED BLOOD COUNT 3.76 X10'6 (4.20-5.60); RED CELL DISTRIBUTION WIDTH 16.4 % (11.5-14.5); WHITE BLOOD COUNT 10.2 X10'3 (4.5-11.0)
--- NOTE | 2022-12-31 06:13 | NUR ---
Problems reprioritized. Patient report given, questions answered & plan of care reviewed with MICHELLE RHOADES.
[2022-12-31 06:19] LABS: ALANINE AMINOTRANSFERASE 169 U/L (12-78); ALBUMIN 2.3 G/DL (3.4-5.0); ALBUMIN/GLOBULIN RATIO 0.8 (1.1-1.5); ALKALINE PHOSPHATASE 46 IU/L (46-116); ANION GAP 15 (8-16); ASPARTATE AMINO TRANSFERASE 20 U/L (10-37); BILIRUBIN,TOTAL 0.4 MG/DL (0.1-1.0); BLOOD UREA NITROGEN 50 MG/DL (7-18); BUN/CREATININE RATIO 22.1 (10.0-20.0); CALCIUM 8.5 MG/DL (8.5-10.1); CHLORIDE 109 MMOL/L (99-107); CHOL/HDL RATIO 6.6 (0.00-4.99); CHOLESTEROL 304 MG/DL (0-200); CREATININE 2.26 MG/DL (0.40-0.90); GLUCOSE 181 MG/DL (70-104); HDL CHOLESTEROL 46 MG/DL (35-60); LDL CHOLESTEROL 183 MG/DL (50-100); MAGNESIUM 2.2 MG/DL (1.5-2.4); SODIUM 144 MMOL/L (135-145); TOTAL PROTEIN 5.2 G/DL (6.4-8.2); TRIGLYCERIDES 213 MG/DL (20-135); eGFR 22 ML/MIN
[2022-12-31] MEDS ORDERED: pantoprazole 40mg Tablet.DR PO SCH (07:30)
[2022-12-31] MEDS ORDERED: docusate sod 100mg capsule PO SCH (08:00)
[2022-12-31] MEDS: pantoprazole 40mg Tablet.DR PO SCH (08:24)
[2022-12-31] MEDS: nitrofuran monohydrate/nitrofuran macrocrysal 100 MG (MacroBID) capsule PO SCH ×2 (08:24→20:31)
[2022-12-31] MEDS: heparin, porcine 5000 units/ml vial SQ SCH ×2 (08:25→20:31)
[2022-12-31] MEDS: K and/or MAG REPLACEMENT MC SCH ×2 (08:26→20:00)
[2022-12-31] MEDS: potassium Cl 20 mEq SR tablet PO PRN ×2 (08:26→12:31)
[2022-12-31] MEDS: normal saline 1000ml 1,000 ML IV SCH ×2 (08:26→16:48)
[2022-12-31] MEDS ORDERED: FEXO-310 PO (08:29)
[2022-12-31] MEDS ORDERED: ROSU20TA31 PO (08:29)
[2022-12-31 10:00] VITALS: BP 176/76
[2022-12-31] MEDS: hydrALAZINE 20mg/ml inj. IV PRN ×2 (10:48→17:22)
[2022-12-31] MEDS: CefTRIAXone 2gm/D5W 50ml BAG 50 ML IV SCH (11:54)
[2022-12-31] MEDS: bisacodyl 10mg suppository rectal RC PRN (13:42)
--- NOTE | 2022-12-31 15:21 | NUR ---
PAGER ID: [phone] MESSAGE: Nehemias Jonas 4020B can i get an order for a sitter? please advise nikolas [phone]
--- NOTE | 2022-12-31 17:11 | NUR ---
reviewed and made changes to pre k teacher physical assessment of patient
[2022-12-31 18:00] VITALS: BP 167/106
--- NOTE | 2022-12-31 18:00 | NUR ---
I have reviewed and agree with interventions, assessments. and documentation by Marci Marsh LVN
[2022-12-31 18:08] LABS: ALANINE AMINOTRANSFERASE 158 U/L (12-78); ALBUMIN 2.8 G/DL (3.4-5.0); ALBUMIN/GLOBULIN RATIO 0.9 (1.1-1.5); ALKALINE PHOSPHATASE 53 IU/L (46-116); ANION GAP 17 (8-16); ASPARTATE AMINO TRANSFERASE 19 U/L (10-37); BILIRUBIN,TOTAL 0.4 MG/DL (0.1-1.0); BLOOD UREA NITROGEN 47 MG/DL (7-18); BUN/CREATININE RATIO 19.9 (10.0-20.0); CALCIUM 8.8 MG/DL (8.5-10.1); CHLORIDE 108 MMOL/L (99-107); CREATININE 2.36 MG/DL (0.40-0.90); GLUCOSE 253 MG/DL (70-104); POTASSIUM 4.4 MMOL/L (3.5-5.1); SODIUM 140 MMOL/L (135-145); TOTAL CARBON DIOXIDE 15.2 MMOL/L (24-32); eGFR 21 ML/MIN
--- NOTE | 2022-12-31 18:13 | NUR ---
PAGER ID: [phone] MESSAGE: Pritesh lynn 4020B critical CO2 of 15.2 thanks nikolas [phone]
--- NOTE | 2022-12-31 18:28 | NUR ---
Problems reprioritized. Patient report given, questions answered & plan of care reviewed with Sylvia.
--- NOTE | 2022-12-31 18:30 | NUR ---
Patient in room ORTHO 4020. I have received report from MICHELLE RHOADES and had the opportunity to ask questions and assume patient care.
[2022-12-31] MEDS: insulin Lispro (HumaLOG) vial - multi-dose SQ SCH (20:05)
[2022-12-31] MEDS: atorvastatin 20mg tablet PO SCH (20:31)
[2022-12-31] MEDS: insulin glargine (Lantus) pen - multi-dose SQ SCH (21:53)
[2022-12-31 22:00] VITALS: BP 167/96
[2023-01-01] MEDS: normal saline 1000ml 1,000 ML IV SCH ×4 (01:07→20:20)
[2023-01-01 01:20] VITALS: BP 199/96
[2023-01-01] MEDS: hydrALAZINE 20mg/ml inj. IV PRN ×2 (01:27→21:59)
[2023-01-01] MEDS: acetaminophen 325mg tablet PO PRN ×2 (03:25→21:43)
[2023-01-01 06:00] VITALS: BP 167/105
--- NOTE | 2023-01-01 06:20 | NUR ---
Patient in room ORTHO 4020. I have received report from SHUKRI GROVE and had the opportunity to ask questions and assume patient care.
[2023-01-01 06:23] LABS: BASOPHILS % (AUTO) 0.2 % (0-1); EOSINOPHILS % (AUTO) 0 % (0-6); HEMATOCRIT 31.6 % (35.0-45.0); HEMOGLOBIN 10.5 g/dl (12.0-16.0); LYMPHOCYTES # (AUTO) 1.2 X10'3 (1.1-4.8); LYMPHOCYTES % (AUTO) 8.7 % (21-51); MEAN CORPUSCULAR HEMOGLOBIN 27.5 PG (27.0-31.0); MEAN CORPUSCULAR HGB CONC 33.2 g/dL (33.0-36.5); MEAN CORPUSCULAR VOLUME 82.8 FL (78-98); MEAN PLATELET VOLUME 8.7 FL (7.4-10.4); MONOCYTES # (AUTO) 1.1 X10'3 (0-0.9); MONOCYTES % (AUTO) 7.8 % (2-12); NEUTROPHILS # (AUTO) 11.7 X10'3 (1.8-7.7); NEUTROPHILS % (AUTO) 83.3 % (42-75); PLATELET COUNT 206 X10'3 (140-440); RED BLOOD COUNT 3.81 X10'6 (4.20-5.60); RED CELL DISTRIBUTION WIDTH 16.3 % (11.5-14.5)
--- NOTE | 2023-01-01 06:28 | NUR ---
Problems reprioritized. Patient report given, questions answered & plan of care reviewed with STACIE RHOADES.
[2023-01-01 06:41] LABS: ALANINE AMINOTRANSFERASE 129 U/L (12-78); ALBUMIN 2.7 G/DL (3.4-5.0); ALBUMIN/GLOBULIN RATIO 0.9 (1.1-1.5); ALKALINE PHOSPHATASE 48 IU/L (46-116); ANION GAP 14 (8-16); ASPARTATE AMINO TRANSFERASE 34 U/L (10-37); BILIRUBIN,TOTAL 0.5 MG/DL (0.1-1.0); BLOOD UREA NITROGEN 37 MG/DL (7-18); BUN/CREATININE RATIO 17.2 (10.0-20.0); CALCIUM 8.9 MG/DL (8.5-10.1); CHLORIDE 113 MMOL/L (99-107); CREATININE 2.15 MG/DL (0.40-0.90); GLUCOSE 159 MG/DL (70-104); MAGNESIUM 2.1 MG/DL (1.5-2.4); POTASSIUM 4.5 MMOL/L (3.5-5.1); SODIUM 143 MMOL/L (135-145); TOTAL CARBON DIOXIDE 16.4 MMOL/L (24-32); TOTAL PROTEIN 5.8 G/DL (6.4-8.2); eGFR 23 ML/MIN
[2023-01-01] MEDS: K and/or MAG REPLACEMENT MC SCH ×2 (08:00→20:00)
[2023-01-01] MEDS: CefTRIAXone 2gm/D5W 50ml BAG 50 ML IV SCH (08:00)
[2023-01-01] MEDS: heparin, porcine 5000 units/ml vial SQ SCH ×2 (08:14→20:07)
[2023-01-01] MEDS: pantoprazole 40mg Tablet.DR PO SCH (08:14)
[2023-01-01] MEDS: aspirin 81mg, enteric-coated 1 TAB TABLET.DR PO SCH (08:14)
[2023-01-01] MEDS: nitrofuran monohydrate/nitrofuran macrocrysal 100 MG (MacroBID) capsule PO SCH ×2 (08:14→20:06)
[2023-01-01 10:00] VITALS: BP 172/85
--- NOTE | 2023-01-01 16:00 | NUR ---
I have reviewed and agree with assessments and documentation by Marci Marsh LVN.
--- NOTE | 2023-01-01 17:03 | NUR ---
IV bag unable to run r/t pt pulling IV out of arm and unsuccessfully attempting for new PIV, will get staff support with iV
[2023-01-01 18:00] VITALS: BP 161/74
--- NOTE | 2023-01-01 18:41 | NUR ---
Problems reprioritized. Patient report given, questions answered & plan of care reviewed with Rere GROVE.
[2023-01-01] MEDS: atorvastatin 20mg tablet PO SCH (20:06)
[2023-01-01] MEDS: insulin glargine (Lantus) pen - multi-dose SQ SCH (21:52)
[2023-01-01 22:00] VITALS: BP 182/88
[2023-01-01 23:55] VITALS: BP 149/70
[2023-01-01] MEDS: amLODIPine 5mg tablet PO SCH (23:59)
--- NOTE | 2023-01-02 06:30 | NUR ---
Patient in room ORTHO 4020. I have received report from Rere RN and had the opportunity to ask questions and assume patient care.
[2023-01-02 06:40] LABS: BASOPHILS % (AUTO) 0.1 % (0-1); EOSINOPHILS % (AUTO) 0.2 % (0-6); HEMATOCRIT 28.7 % (35.0-45.0); HEMOGLOBIN 9.5 g/dl (12.0-16.0); LYMPHOCYTES # (AUTO) 1.2 X10'3 (1.1-4.8); LYMPHOCYTES % (AUTO) 9.6 % (21-51); MEAN CORPUSCULAR HEMOGLOBIN 27.4 PG (27.0-31.0); MEAN CORPUSCULAR HGB CONC 33.2 g/dL (33.0-36.5); MEAN CORPUSCULAR VOLUME 82.6 FL (78-98); MEAN PLATELET VOLUME 8.6 FL (7.4-10.4); MONOCYTES % (AUTO) 7.9 % (2-12); NEUTROPHILS # (AUTO) 10.4 X10'3 (1.8-7.7); NEUTROPHILS % (AUTO) 82.2 % (42-75); PLATELET COUNT 195 X10'3 (140-440); RED BLOOD COUNT 3.48 X10'6 (4.20-5.60); RED CELL DISTRIBUTION WIDTH 17.1 % (11.5-14.5); WHITE BLOOD COUNT 12.7 X10'3 (4.5-11.0)
[2023-01-02 06:43] LABS: ALANINE AMINOTRANSFERASE 89 U/L (12-78); ALBUMIN 2.4 G/DL (3.4-5.0); ALBUMIN/GLOBULIN RATIO 0.9 (1.1-1.5); ALKALINE PHOSPHATASE 45 IU/L (46-116); ANION GAP 11 (8-16); ASPARTATE AMINO TRANSFERASE 30 U/L (10-37); BILIRUBIN,TOTAL 0.4 MG/DL (0.1-1.0); BLOOD UREA NITROGEN 29 MG/DL (7-18); CALCIUM 8.3 MG/DL (8.5-10.1); CHLORIDE 114 MMOL/L (99-107); CREATININE 1.93 MG/DL (0.40-0.90); GLUCOSE 132 MG/DL (70-104); POTASSIUM 3.7 MMOL/L (3.5-5.1); SODIUM 144 MMOL/L (135-145); TOTAL CARBON DIOXIDE 19.3 MMOL/L (24-32); TOTAL PROTEIN 5.1 G/DL (6.4-8.2); eGFR 26 ML/MIN
[2023-01-02 07:00] VITALS: BP 167/70
[2023-01-02] MEDS: nitrofuran monohydrate/nitrofuran macrocrysal 100 MG (MacroBID) capsule PO SCH ×2 (07:26→19:29)
[2023-01-02] MEDS: amLODIPine 5mg tablet PO SCH (07:27)
[2023-01-02] MEDS: acetaminophen 325mg tablet PO PRN ×2 (07:27→18:09)
[2023-01-02] MEDS: pantoprazole 40mg Tablet.DR PO SCH (07:27)
[2023-01-02] MEDS: lisinopril 20mg tablet PO SCH (07:28)
[2023-01-02] MEDS: heparin, porcine 5000 units/ml vial SQ SCH ×2 (07:28→19:29)
[2023-01-02] MEDS: aspirin 81mg, enteric-coated 1 TAB TABLET.DR PO SCH (07:28)
[2023-01-02] MEDS: normal saline 1000ml 1,000 ML IV SCH ×2 (07:29→19:29)
[2023-01-02] MEDS: K and/or MAG REPLACEMENT MC SCH ×2 (08:00→19:29)
[2023-01-02] MEDS: CefTRIAXone 2gm/D5W 50ml BAG 50 ML IV SCH (09:07)
[2023-01-02 10:00] VITALS: BP 161/73
[2023-01-02 11:00] VITALS: BP 149/85
[2023-01-02] MEDS: bisacodyl 10mg suppository rectal RC PRN (12:53)
--- NOTE | 2023-01-02 15:05 | NUR ---
BOX OFFICE AGENT documentation: I have reviewed and agree with all interventions, assessments performed and documented by Marly Tompkins LVN.
[2023-01-02 18:00] VITALS: BP 163/81
[2023-01-02] MEDS: insulin Lispro (HumaLOG) vial - multi-dose SQ SCH (18:09)
--- NOTE | 2023-01-02 18:54 | NUR ---
Problems reprioritized. Patient report given, questions answered & plan of care reviewed with Aide GROVE.
[2023-01-02] MEDS: atorvastatin 20mg tablet PO SCH (19:29)
[2023-01-02] MEDS: lactose-reduced food (Ensure Enlive) - 237ml bottle PO SCH (19:30)
[2023-01-02] MEDS: hydrALAZINE 20mg/ml inj. IV PRN (19:33)
[2023-01-02] MEDS: magnesium hydroxide 30ml (MOM) UD suspension PO PRN (19:34)
[2023-01-02 22:00] VITALS: BP 179/87
[2023-01-02] MEDS: insulin glargine (Lantus) pen - multi-dose SQ SCH (22:14)
[2023-01-03 06:00] VITALS: BP 178/85
--- NOTE | 2023-01-03 06:32 | NUR ---
reported to days. noted pt had large incont urine
--- NOTE | 2023-01-03 06:44 | NUR ---
Patient in room ORTHO 4020. I have received report from Aide and had the opportunity to ask questions and assume patient care.
[2023-01-03 06:54] LABS: BASOPHILS % (AUTO) 0.2 % (0-1); EOSINOPHILS % (AUTO) 0.1 % (0-6); HEMATOCRIT 28.6 % (35.0-45.0); HEMOGLOBIN 9.3 g/dl (12.0-16.0); LYMPHOCYTES # (AUTO) 1.3 X10'3 (1.1-4.8); LYMPHOCYTES % (AUTO) 9.1 % (21-51); MEAN CORPUSCULAR HGB CONC 32.4 g/dL (33.0-36.5); MEAN CORPUSCULAR VOLUME 83.4 FL (78-98); MEAN PLATELET VOLUME 8.3 FL (7.4-10.4); MONOCYTES # (AUTO) 1.1 X10'3 (0-0.9); MONOCYTES % (AUTO) 7.7 % (2-12); NEUTROPHILS # (AUTO) 11.6 X10'3 (1.8-7.7); NEUTROPHILS % (AUTO) 82.9 % (42-75); PLATELET COUNT 195 X10'3 (140-440); RED BLOOD COUNT 3.43 X10'6 (4.20-5.60); RED CELL DISTRIBUTION WIDTH 17.1 % (11.5-14.5); WHITE BLOOD COUNT 13.9 X10'3 (4.5-11.0)
[2023-01-03] MEDS: K and/or MAG REPLACEMENT MC SCH ×3 (06:54→20:00)
[2023-01-03 06:55] LABS: ALANINE AMINOTRANSFERASE 75 U/L (12-78); ALBUMIN 2.4 G/DL (3.4-5.0); ALBUMIN/GLOBULIN RATIO 0.9 (1.1-1.5); ALKALINE PHOSPHATASE 46 IU/L (46-116); ANION GAP 10 (8-16); ASPARTATE AMINO TRANSFERASE 42 U/L (10-37); BILIRUBIN,TOTAL 0.3 MG/DL (0.1-1.0); BLOOD UREA NITROGEN 23 MG/DL (7-18); BUN/CREATININE RATIO 13.7 (10.0-20.0); CALCIUM 8.2 MG/DL (8.5-10.1); CHLORIDE 115 MMOL/L (99-107); CREATININE 1.68 MG/DL (0.40-0.90); GLUCOSE 75 MG/DL (70-104); MAGNESIUM 2.2 MG/DL (1.5-2.4); POTASSIUM 3.4 MMOL/L (3.5-5.1); SODIUM 145 MMOL/L (135-145); TOTAL CARBON DIOXIDE 20.5 MMOL/L (24-32); TOTAL PROTEIN 5.1 G/DL (6.4-8.2); eGFR 31 ML/MIN
[2023-01-03] MEDS: lactose-reduced food (Ensure Enlive) - 237ml bottle PO SCH ×2 (08:17→20:00)
[2023-01-03] MEDS: amLODIPine 5mg tablet PO SCH (08:24)
[2023-01-03] MEDS: pantoprazole 40mg Tablet.DR PO SCH (08:24)
[2023-01-03] MEDS: nitrofuran monohydrate/nitrofuran macrocrysal 100 MG (MacroBID) capsule PO SCH ×2 (08:24→21:32)
[2023-01-03] MEDS: lisinopril 20mg tablet PO SCH (08:24)
[2023-01-03] MEDS: CefTRIAXone 2gm/D5W 50ml BAG 50 ML IV SCH (08:24)
[2023-01-03] MEDS: heparin, porcine 5000 units/ml vial SQ SCH ×2 (08:25→21:33)
[2023-01-03] MEDS: aspirin 81mg, enteric-coated 1 TAB TABLET.DR PO SCH (08:25)
[2023-01-03 10:00] VITALS: BP 193/98
--- NOTE | 2023-01-03 10:54 | NUR ---
Message: Mary Jonas in 7660B - Bladder scan had over 700ml. Can I straight cath? -Susan [phone]
--- NOTE | 2023-01-03 11:08 | NUR ---
Message: 2nd page for Mary Jonas - need straight cath order. Pt has greater than 700 ml in bladder. -Susan [phone]
[2023-01-03 11:45] VITALS: BP 148/80
[2023-01-03 11:58] LABS: COLOR,URINE YELLOW (Yellow); GLUCOSE, URINE 100 mg/dl (Neg); KETONES,URINE NEGATIVE (Neg); LEUKOCYTE ESTERASE ,URINE NEGATIVE (Neg); NITRITES, URINE NEGATIVE (Neg); OCCULT BLOOD,URINE SMALL (Neg); PROTEIN,URINE 100 mg/dl (Neg); UROBILINOGEN,URINE 0.2 E.U/dL (0.2-1.0)
[2023-01-03 12:04] LABS: UA COLLECTION TYPE NON-SPECIFIED
[2023-01-03 12:06] LABS: CLARITY,URINE SLIGHTLY CLOUDY (Clear)
[2023-01-03 12:07] LABS: BACTERIA,URINE FEW /HPF (Neg); MUCUS STRANDS MODERATE /LPF (Neg); RBC,URINE 0-2 /HPF (0-2); RENAL CELLS, URINE FEW /HPF; SQUAMOUS EPITHELIAL CELL,UR NONE SEEN /LPF (FEW); TRANSITIONAL EPI CELLS,URINE FEW /HPF; WBC,URINE 0-4 /HPF (0-4)
[2023-01-03 12:08] LABS: FINE GRANULAR CAST 0-3 /LPF (NEGATIVE); HYALINE CASTS 0-3 /LPF (NEGATIVE)
[2023-01-03] MEDS ORDERED: magnesium 2GM in 50ml NS 50 ML IV PRN (13:20)
[2023-01-03] MEDS ORDERED: potassium Cl 20 mEq SR tablet PO PRN (13:20)
[2023-01-03] MEDS ORDERED: magnesium 4gm in 100ml NS 100 ML IV PRN (13:20)
[2023-01-03] MEDS ORDERED: magnesium Cl slow-release 64mg tablet PO PRN (13:20)
[2023-01-03] MEDS ORDERED: potassium Cl 40MEQ/1/2NS 520ml 520 ML IV PRN (13:20)
[2023-01-03 15:23] VITALS: BP 144/71
[2023-01-03] MEDS: normal saline 1000ml 1,000 ML IV SCH ×2 (16:11→18:06)
[2023-01-03] MEDS: potassium Cl 20 mEq SR tablet PO PRN (16:20)
--- NOTE | 2023-01-03 17:50 | NUR ---
Bladder scan - 405ml
[2023-01-03 18:00] VITALS: BP 144/71
[2023-01-03] MEDS: insulin Lispro (HumaLOG) vial - multi-dose SQ SCH (19:35)
[2023-01-03] MEDS: insulin glargine (Lantus) pen - multi-dose SQ SCH (21:00)
[2023-01-03] MEDS: atorvastatin 20mg tablet PO SCH (21:32)
[2023-01-03 22:00] VITALS: BP 122/74
--- NOTE | 2023-01-04 00:30 | NUR ---
Page Sent PAGER ID: [phone] MESSAGE: [id number]: Mary Jonas: pt restless and unable to sleep. pt confused and unable to follow commands. can we get RX to help pt sleep. thank you Dulce Maria ext [phone]
[2023-01-04] MEDS ORDERED: LORazepam 2 mg/ml vial IV PRN (00:35)
[2023-01-04] MEDS: normal saline 1000ml 1,000 ML IV SCH (02:33)
[2023-01-04 05:10] LABS: BASOPHILS % (AUTO) 0.2 % (0-1); EOSINOPHILS # (AUTO) 0.1 X10'3 (0-0.9); EOSINOPHILS % (AUTO) 0.4 % (0-6); HEMATOCRIT 28.4 % (35.0-45.0); LYMPHOCYTES # (AUTO) 1.4 X10'3 (1.1-4.8); LYMPHOCYTES % (AUTO) 10.8 % (21-51); MEAN CORPUSCULAR HEMOGLOBIN 26.4 PG (27.0-31.0); MEAN CORPUSCULAR HGB CONC 31.6 g/dL (33.0-36.5); MEAN CORPUSCULAR VOLUME 83.6 FL (78-98); MEAN PLATELET VOLUME 8.5 FL (7.4-10.4); MONOCYTES # (AUTO) 1.2 X10'3 (0-0.9); MONOCYTES % (AUTO) 9.1 % (2-12); NEUTROPHILS # (AUTO) 10.1 X10'3 (1.8-7.7); NEUTROPHILS % (AUTO) 79.5 % (42-75); PLATELET COUNT 207 X10'3 (140-440); RED CELL DISTRIBUTION WIDTH 17.6 % (11.5-14.5); WHITE BLOOD COUNT 12.7 X10'3 (4.5-11.0)
[2023-01-04 05:17] LABS: ALANINE AMINOTRANSFERASE 63 U/L (12-78); ALBUMIN 2.5 G/DL (3.4-5.0); ALBUMIN/GLOBULIN RATIO 0.9 (1.1-1.5); ALKALINE PHOSPHATASE 51 IU/L (46-116); ANION GAP 8 (8-16); ASPARTATE AMINO TRANSFERASE 27 U/L (10-37); BILIRUBIN,TOTAL 0.3 MG/DL (0.1-1.0); BLOOD UREA NITROGEN 19 MG/DL (7-18); BUN/CREATININE RATIO 11.6 (10.0-20.0); CHLORIDE 117 MMOL/L (99-107); CREATININE 1.64 MG/DL (0.40-0.90); GLUCOSE 121 MG/DL (70-104); POTASSIUM 3.6 MMOL/L (3.5-5.1); SODIUM 147 MMOL/L (135-145); TOTAL CARBON DIOXIDE 21.8 MMOL/L (24-32); TOTAL PROTEIN 5.2 G/DL (6.4-8.2); eGFR 32 ML/MIN
[2023-01-04 06:00] VITALS: BP 161/82
--- NOTE | 2023-01-04 06:33 | NUR ---
Patient in room ORTHO 4020. I have received report from Anita and had the opportunity to ask questions and assume patient care.
[2023-01-04] MEDS: K and/or MAG REPLACEMENT MC SCH ×4 (06:42→20:00)
[2023-01-04] MEDS: aspirin 81mg, enteric-coated 1 TAB TABLET.DR PO SCH (07:33)
[2023-01-04] MEDS: CefTRIAXone 2gm/D5W 50ml BAG 50 ML IV SCH (07:33)
[2023-01-04] MEDS: pantoprazole 40mg Tablet.DR PO SCH (07:33)
[2023-01-04] MEDS: lisinopril 20mg tablet PO SCH (07:34)
[2023-01-04] MEDS: nitrofuran monohydrate/nitrofuran macrocrysal 100 MG (MacroBID) capsule PO SCH ×2 (07:34→20:24)
[2023-01-04] MEDS: heparin, porcine 5000 units/ml vial SQ SCH ×2 (07:34→20:25)
[2023-01-04] MEDS: amLODIPine 5mg tablet PO SCH (07:34)
[2023-01-04] MEDS: lactose-reduced food (Ensure Enlive) - 237ml bottle PO SCH ×2 (07:35→20:53)
[2023-01-04 08:45] VITALS: BP 165/85
[2023-01-04] MEDS: acetaminophen 325mg tablet PO PRN ×2 (08:45→16:12)
--- NOTE | 2023-01-04 12:23 | NUR ---
Initial: Pt admit for acute renal failure with metabolic encephalopathy and hypokalemia. Per EMR pt A/O x 1 and confused, with a sitter at bedside. Pt on a CHO controlled diet and overall eating poorly, documented with mostly 0-25% PO intake of meals with the exception of ~56% PO intake of the first two meals. Pt receiving an Ensure Enlive BID with decent acceptance, averaging 58% PO intake of three ONS with refusal x 1. D/w RN recommendation to increase ONS frequency to TID and liberalize to regular diet given poor PO intake and T2DM well controlled with A1c 6.3%. LBM 01/03, documented with 21 BMs per I&O, possibly an error as pt documented with no GI symptoms. Will continue to follow closely and make recommendations as appropriate. Recommendations: 1) Liberalize to regular diet given poor meal acceptance and T2DM well controlled with A1c 6.3%-d/w RN 01/04 2) Increase Ensure Enlive BID to TID to optimize nutrient intake-d/w RN 01/04 3) Encourage PO intake; assist with meals as needed given ALOC 4) PRN bowel care 5) Scaled weight this admit; subsequent weekly scaled weights Addendum: 01/04/23 at [address] Amended: Links added.
[2023-01-04] MEDS: potassium CL 20mEq in D5-1/2NS 1,000 ML IV SCH (13:33)
[2023-01-04] MEDS: hydrALAZINE 20mg/ml inj. IV PRN (17:16)
[2023-01-04 19:00] VITALS: BP 165/82
[2023-01-04] MEDS: atorvastatin 20mg tablet PO SCH (20:24)
[2023-01-04] MEDS: insulin glargine (Lantus) pen - multi-dose SQ SCH (20:54)
[2023-01-04 23:00] VITALS: BP 149/78
[2023-01-05] MEDS: bisacodyl 10mg suppository rectal RC PRN
--- NOTE | 2023-01-05 01:53 | NUR ---
AGREE WITH ARRESTING GEAR OPERATOR PHYSICAL ASSESSMENT CHARTED.
--- NOTE | 2023-01-05 02:13 | NUR ---
Page sent to MD - Pt 2150P, Carolee Jim, has large hard impacted stool in rectum, given suppository without effect, pt has alot of discomfort. May we have an order for an enema? None currently ordered. Thank you, Genny Howard @[phone].
--- NOTE | 2023-01-05 02:30 | NUR ---
MD responded to page with verbal order to administer castile soap enema. Enema administered, no immediate results. Will continue to monitor.
[2023-01-05 04:42] LABS: ALANINE AMINOTRANSFERASE 57 U/L (12-78); ALBUMIN 2.4 G/DL (3.4-5.0); ALBUMIN/GLOBULIN RATIO 0.9 (1.1-1.5); ALKALINE PHOSPHATASE 55 IU/L (46-116); ANION GAP 9 (8-16); ASPARTATE AMINO TRANSFERASE 37 U/L (10-37); BILIRUBIN,TOTAL 0.4 MG/DL (0.1-1.0); BLOOD UREA NITROGEN 24 MG/DL (7-18); BUN/CREATININE RATIO 13.3 (10.0-20.0); CALCIUM 8.2 MG/DL (8.5-10.1); CHLORIDE 113 MMOL/L (99-107); GLUCOSE 215 MG/DL (70-104); MAGNESIUM 1.9 MG/DL (1.5-2.4); PHOSPHORUS 1.6 MG/DL (2.3-4.5); POTASSIUM 3.3 MMOL/L (3.5-5.1); SODIUM 144 MMOL/L (135-145); TOTAL CARBON DIOXIDE 21.6 MMOL/L (24-32); TOTAL PROTEIN 5.2 G/DL (6.4-8.2); eGFR 29 ML/MIN
[2023-01-05 04:49] LABS: BASOPHILS % (AUTO) 0.1 % (0-1); EOSINOPHILS # (AUTO) 0.1 X10'3 (0-0.9); EOSINOPHILS % (AUTO) 0.4 % (0-6); HEMATOCRIT 28.4 % (35.0-45.0); HEMOGLOBIN 9.1 g/dl (12.0-16.0); LYMPHOCYTES # (AUTO) 0.9 X10'3 (1.1-4.8); LYMPHOCYTES % (AUTO) 6.2 % (21-51); MEAN CORPUSCULAR HGB CONC 32.1 g/dL (33.0-36.5); MEAN CORPUSCULAR VOLUME 84.1 FL (78-98); MEAN PLATELET VOLUME 8.4 FL (7.4-10.4); MONOCYTES # (AUTO) 1.2 X10'3 (0-0.9); MONOCYTES % (AUTO) 8.4 % (2-12); NEUTROPHILS # (AUTO) 12.6 X10'3 (1.8-7.7); NEUTROPHILS % (AUTO) 84.9 % (42-75); PLATELET COUNT 198 X10'3 (140-440); RED BLOOD COUNT 3.38 X10'6 (4.20-5.60); RED CELL DISTRIBUTION WIDTH 17.7 % (11.5-14.5); WHITE BLOOD COUNT 14.9 X10'3 (4.5-11.0)
--- NOTE | 2023-01-05 05:50 | NUR ---
LN completed bladder scan q4hrs overnight - @ 2300 160cc, @0200 200cc, @0545 360cc, with small amount of brown urine noted in brief 2x overnight. Pt still has not had a bowel movement, will give information in report to day nurse to follow up.
[2023-01-05 06:00] VITALS: BP 159/70
--- NOTE | 2023-01-05 06:56 | NUR ---
Patient in room ORTHO 4020. I have received report from JF leslie and had the opportunity to ask questions and assume patient care.
[2023-01-05] MEDS: CefTRIAXone 2gm/D5W 50ml BAG 50 ML IV SCH (07:15)
[2023-01-05] MEDS: K and/or MAG REPLACEMENT MC SCH ×4 (08:00→18:27)
[2023-01-05] MEDS: pantoprazole 40mg Tablet.DR PO SCH (08:20)
[2023-01-05] MEDS: aspirin 81mg, enteric-coated 1 TAB TABLET.DR PO SCH (08:21)
[2023-01-05] MEDS: heparin, porcine 5000 units/ml vial SQ SCH ×2 (08:21→19:56)
[2023-01-05] MEDS: nitrofuran monohydrate/nitrofuran macrocrysal 100 MG (MacroBID) capsule PO SCH ×2 (08:21→19:55)
[2023-01-05] MEDS: lisinopril 20mg tablet PO SCH (08:24)
[2023-01-05] MEDS: lactose-reduced food (Ensure Enlive) - 237ml bottle PO SCH ×3 (08:24→20:01)
[2023-01-05] MEDS: amLODIPine 5mg tablet PO SCH (08:24)
[2023-01-05] MEDS: potassium Cl 20 mEq SR tablet PO PRN ×3 (08:34→20:03)
--- NOTE | 2023-01-05 08:38 | NUR ---
Per EMR pt with a Moises of 12. No edema and skin is intact per EMR. Addendum: 01/05/23 at [address] Amended: Links added.
[2023-01-05] MEDS: potassium CL 20mEq in D5-1/2NS 1,000 ML IV SCH (09:22)
--- NOTE | 2023-01-05 11:42 | NUR ---
Patient was bladder scanned with results of 639ml, assisted patient on bed cooper and was unable to void. Straight cath with an output of 500ml. Bladder scanned patient Post void with results of 97ml.
--- NOTE | 2023-01-05 15:41 | NUR ---
Patient has had no bowel movement, hard stool at rectum. Patient having hard time trying to defecate. MD was informed with order for soap adrián enema. Soap Adrián enema was administered with no results at this time. Will continue to monitor.
[2023-01-05 18:00] VITALS: BP 188/76
--- NOTE | 2023-01-05 18:22 | NUR ---
Problems reprioritized. Patient report given, questions answered & plan of care reviewed with MAINE Gotti.
[2023-01-05 19:10] VITALS: BP 138/85
[2023-01-05] MEDS: docusate sod 100mg capsule PO SCH (19:55)
[2023-01-05] MEDS: atorvastatin 20mg tablet PO SCH (19:55)
[2023-01-05] MEDS: polyethylene glycol 3350 17gm powd pack PO SCH (19:56)
[2023-01-05] MEDS: insulin glargine (Lantus) pen - multi-dose SQ SCH (21:00)
[2023-01-05 22:00] VITALS: BP 132/66
[2023-01-06] MEDS: acetaminophen 325mg tablet PO PRN (00:44)
--- NOTE | 2023-01-06 02:04 | NUR ---
scanned bladder 100mL. did not cath
[2023-01-06] MEDS: potassium CL 20mEq in D5-1/2NS 1,000 ML IV SCH (04:48)
--- NOTE | 2023-01-06 05:05 | NUR ---
unable to void, bladder scanned for 315
--- NOTE | 2023-01-06 06:25 | NUR ---
Problems reprioritized. Patient report given, questions answered & plan of care reviewed with MAINE Covarrubias.
[2023-01-06] MEDS: CefTRIAXone 2gm/D5W 50ml BAG 50 ML IV SCH (07:04)
--- NOTE | 2023-01-06 07:13 | NUR ---
Patient in room ORTHO 4020. I have received report from DODIE GROVE and had the opportunity to ask questions and assume patient care.
[2023-01-06] MEDS: K and/or MAG REPLACEMENT MC SCH ×4 (08:00→20:00)
[2023-01-06 08:17] LABS: BASOPHILS % (AUTO) 0.3 % (0-1); EOSINOPHILS # (AUTO) 0.2 X10'3 (0-0.9); EOSINOPHILS % (AUTO) 1.7 % (0-6); HEMATOCRIT 25.3 % (35.0-45.0); HEMOGLOBIN 8.3 g/dl (12.0-16.0); LYMPHOCYTES # (AUTO) 1.5 X10'3 (1.1-4.8); LYMPHOCYTES % (AUTO) 14.7 % (21-51); MEAN CORPUSCULAR HEMOGLOBIN 27.5 PG (27.0-31.0); MEAN CORPUSCULAR VOLUME 83.3 FL (78-98); MEAN PLATELET VOLUME 8.4 FL (7.4-10.4); MONOCYTES # (AUTO) 1.2 X10'3 (0-0.9); MONOCYTES % (AUTO) 11.8 % (2-12); NEUTROPHILS # (AUTO) 7.5 X10'3 (1.8-7.7); NEUTROPHILS % (AUTO) 71.5 % (42-75); PLATELET COUNT 153 X10'3 (140-440); RED BLOOD COUNT 3.04 X10'6 (4.20-5.60); RED CELL DISTRIBUTION WIDTH 17.4 % (11.5-14.5); WHITE BLOOD COUNT 10.5 X10'3 (4.5-11.0)
[2023-01-06 08:30] LABS: ALANINE AMINOTRANSFERASE 40 U/L (12-78); ALBUMIN/GLOBULIN RATIO 0.8 (1.1-1.5); ALKALINE PHOSPHATASE 48 IU/L (46-116); ANION GAP 6 (8-16); ASPARTATE AMINO TRANSFERASE 30 U/L (10-37); BILIRUBIN,TOTAL 0.2 MG/DL (0.1-1.0); BLOOD UREA NITROGEN 21 MG/DL (7-18); BUN/CREATININE RATIO 12.5 (10.0-20.0); CHLORIDE 115 MMOL/L (99-107); CREATININE 1.68 MG/DL (0.40-0.90); GLUCOSE 141 MG/DL (70-104); MAGNESIUM 1.9 MG/DL (1.5-2.4); POTASSIUM 4.5 MMOL/L (3.5-5.1); SODIUM 143 MMOL/L (135-145); TOTAL CARBON DIOXIDE 22.5 MMOL/L (24-32); TOTAL PROTEIN 4.5 G/DL (6.4-8.2); eGFR 31 ML/MIN
[2023-01-06] MEDS: lisinopril 20mg tablet PO SCH (08:30)
[2023-01-06] MEDS: magnesium hydroxide 30ml (MOM) UD suspension PO PRN (08:30)
[2023-01-06] MEDS: aspirin 81mg, enteric-coated 1 TAB TABLET.DR PO SCH (08:31)
[2023-01-06] MEDS: pantoprazole 40mg Tablet.DR PO SCH (08:31)
[2023-01-06] MEDS: heparin, porcine 5000 units/ml vial SQ SCH ×2 (08:31→21:12)
[2023-01-06] MEDS: docusate sod 100mg capsule PO SCH ×2 (08:31→21:11)
[2023-01-06] MEDS: amLODIPine 5mg tablet PO SCH (08:31)
[2023-01-06] MEDS: nitrofuran monohydrate/nitrofuran macrocrysal 100 MG (MacroBID) capsule PO SCH ×2 (08:31→21:11)
[2023-01-06] MEDS: lactose-reduced food (Ensure Enlive) - 237ml bottle PO SCH (08:31)
[2023-01-06 08:35] LABS: PHOSPHORUS 1.2 MG/DL (2.3-4.5)
--- NOTE | 2023-01-06 08:35 | NUR ---
bladder scan completed 470 ML scanned. Will recheck as scheduled
--- NOTE | 2023-01-06 08:50 | NUR ---
Message: 4020B AURY BEAUCHAMP critical phosphorous 1.2 pelion [phone]
[2023-01-06] MEDS ORDERED: potassium phosphate inj 30 MMOL in normal saline 250ml IV soln 250 ML IV ONE (08:55)
--- NOTE | 2023-01-06 09:55 | NUR ---
Xray notified this nurse of inability to complete XRAY r/t pt pain level. Pt was medicated with morphine prior to xray, will attempt later. Addendum: 01/06/23 at 1011 by Marci Domingo LVN, LVN wrong pt
[2023-01-06 10:00] VITALS: BP 120/48
[2023-01-06] MEDS: lactulose 20gm/30ml cup PO SCH ×3 (13:14→21:12)
--- NOTE | 2023-01-06 14:35 | NUR ---
Page Accepted Message: Pritesh rm [id number] please advise regarding several straight caths thanks nikolas [phone]
--- NOTE | 2023-01-06 16:04 | NUR ---
The following was taken from the patients H&P: This 62 yr. old female was brought in to the ER by her son with reports of changes in mentation, increased weakness and fall. She has a medical history of CVA, peripheral neuropathy, HTN, PNA, hernia, DM, GERD, COPD, CHF, CKD and chronic pain. She quit smoking last week after a 40 yr. pack a day HX. She denies the use of alcohol and illicit drugs. She lives at home with family. CXR was negative for acute processes. Head CT revealed senescent changes and chronic appearing periventricular ischemia. Her most recent labs show a WBC of 10.5, HGB 8.3 and a BG 129. She was admitted for medical management of metabolic encephalopathy secondary to acute renal failure per progress notes. Wound care in for skin assessment secondary to low Moises score. The pt. was found lying in bed in no apparent acute distress with a sitter at the bedside. Greeted and explained the intent. She appears alert to herself, agreeable to care. Skin assessed. There is a small reddened and blanching area to her jaz rectal skin otherwise skin is intact. She is able to reposition herself in bed. Bed left in the lowest position and patient left in the care of the primary nurse. [facility] will not follow as the pt. does not appear to have mobility issues and there is no current skin breakdown. Report was given to the primary nurse. Addendum: 01/07/23 at 0819 by Vannessa Farrell RN [facility]
--- NOTE | 2023-01-06 18:16 | NUR ---
Problems reprioritized. Patient report given, questions answered & plan of care reviewed with jagdish mixon.
[2023-01-06 18:30] VITALS: BP 164/73
[2023-01-06] MEDS: insulin glargine (Lantus) pen - multi-dose SQ SCH (21:00)
[2023-01-06] MEDS: polyethylene glycol 3350 17gm powd pack PO SCH (21:11)
[2023-01-06] MEDS: atorvastatin 20mg tablet PO SCH (21:11)
[2023-01-06 22:00] VITALS: BP 141/70
[2023-01-07] MEDS: lactulose 20gm/30ml cup PO SCH ×3 (04:00→07:38)
[2023-01-07] MEDS: potassium CL 20mEq in D5-1/2NS 1,000 ML IV SCH ×2 (05:12→23:58)
[2023-01-07 06:00] VITALS: BP 127/53
[2023-01-07 06:07] LABS: BASOPHILS # (AUTO) 0.1 X10'3 (0-0.2); BASOPHILS % (AUTO) 0.6 % (0-1); EOSINOPHILS # (AUTO) 0.2 X10'3 (0-0.9); EOSINOPHILS % (AUTO) 2.7 % (0-6); HEMATOCRIT 22.5 % (35.0-45.0); HEMOGLOBIN 7.4 g/dl (12.0-16.0); LYMPHOCYTES # (AUTO) 1.6 X10'3 (1.1-4.8); LYMPHOCYTES % (AUTO) 18.4 % (21-51); MEAN CORPUSCULAR HEMOGLOBIN 27.4 PG (27.0-31.0); MEAN CORPUSCULAR HGB CONC 32.8 g/dL (33.0-36.5); MEAN CORPUSCULAR VOLUME 83.5 FL (78-98); MEAN PLATELET VOLUME 8.8 FL (7.4-10.4); MONOCYTES # (AUTO) 1.1 X10'3 (0-0.9); MONOCYTES % (AUTO) 12.5 % (2-12); NEUTROPHILS # (AUTO) 5.8 X10'3 (1.8-7.7); NEUTROPHILS % (AUTO) 65.8 % (42-75); PLATELET COUNT 125 X10'3 (140-440); RED BLOOD COUNT 2.69 X10'6 (4.20-5.60); WHITE BLOOD COUNT 8.8 X10'3 (4.5-11.0)
--- NOTE | 2023-01-07 06:10 | NUR ---
received report from jagdish, rn
[2023-01-07 06:35] LABS: ALANINE AMINOTRANSFERASE 38 U/L (12-78); ALBUMIN 1.8 G/DL (3.4-5.0); ALBUMIN/GLOBULIN RATIO 0.8 (1.1-1.5); ALKALINE PHOSPHATASE 49 IU/L (46-116); ANION GAP 9 (8-16); ASPARTATE AMINO TRANSFERASE 25 U/L (10-37); BILIRUBIN,TOTAL 0.2 MG/DL (0.1-1.0); BLOOD UREA NITROGEN 21 MG/DL (7-18); BUN/CREATININE RATIO 12.3 (10.0-20.0); CALCIUM 7.6 MG/DL (8.5-10.1); CREATININE 1.71 MG/DL (0.40-0.90); GLUCOSE 134 MG/DL (70-104); MAGNESIUM 1.8 MG/DL (1.5-2.4); PHOSPHORUS 2.4 MG/DL (2.3-4.5); POTASSIUM 3.9 MMOL/L (3.5-5.1); SODIUM 146 MMOL/L (135-145); TOTAL CARBON DIOXIDE 20.5 MMOL/L (24-32); TOTAL PROTEIN 4.2 G/DL (6.4-8.2); eGFR 30 ML/MIN
[2023-01-07 06:40] LABS: CHLORIDE 117 MMOL/L (99-107)
[2023-01-07] MEDS: K and/or MAG REPLACEMENT MC SCH ×4 (07:35→20:00)
[2023-01-07] MEDS: lactose-reduced food (Ensure Enlive) - 237ml bottle PO SCH ×2 (07:36→20:00)
[2023-01-07] MEDS: docusate sod 100mg capsule PO SCH ×2 (07:43→19:50)
[2023-01-07] MEDS: aspirin 81mg, enteric-coated 1 TAB TABLET.DR PO SCH (07:43)
[2023-01-07] MEDS: amLODIPine 5mg tablet PO SCH (07:43)
[2023-01-07] MEDS: pantoprazole 40mg Tablet.DR PO SCH (07:43)
[2023-01-07] MEDS: nitrofuran monohydrate/nitrofuran macrocrysal 100 MG (MacroBID) capsule PO SCH ×2 (07:43→19:50)
[2023-01-07] MEDS: CefTRIAXone 2gm/D5W 50ml BAG 50 ML IV SCH (07:44)
[2023-01-07] MEDS: lisinopril 20mg tablet PO SCH (07:44)
[2023-01-07] MEDS: heparin, porcine 5000 units/ml vial SQ SCH ×2 (07:50→19:51)
[2023-01-07] MEDS: acetaminophen 325mg tablet PO PRN (08:53)
[2023-01-07 11:00] VITALS: BP 122/51
--- NOTE | 2023-01-07 14:55 | NUR ---
F/u 01/07: Pt meal intake remains poor ~9% avg regular/EC7/thin diet though continued good acceptance of Ensure Enlive BID ~75% avg per EMR partially meeting needs. Enlive not change to TIDWM per prior RD recs; RD d/w RN today regarding increase to TIDWM if MD agreeable- now changed to TID in EMR dietary notified. Pt receiving KCL/D5W/half NS at 50ml/hr providing additional 204 kcals/day. LBM 01/07 following prior constipation episode 01/05 receiving routine colace/miralax HS and PRN MoM 01/06 w/ dulcolax 01/05 per EMR. Pt remains confused in addition to constipation episodes likely influencing meal accetpance. Will continue to follow. Recommendations: 1) Continue regular/EC7 diet per MD; carb controlled not indicated given poor meal acceptance and A1c 6.3% 2) Ensure Enlive TIDWM to optimize nutrient intake 3) Encourage PO intake; assist with meals as needed given ALOC 4) Routine bowel care 5) Scaled weight this admit; subsequent weekly scaled weights Addendum: 01/07/23 at [address] Amended: Links added.
--- NOTE | 2023-01-07 18:13 | NUR ---
gave report november,
[2023-01-07] MEDS: atorvastatin 20mg tablet PO SCH (19:50)
[2023-01-07] MEDS: polyethylene glycol 3350 17gm powd pack PO SCH (19:51)
[2023-01-07] MEDS: insulin glargine (Lantus) pen - multi-dose SQ SCH (21:00)
--- NOTE | 2023-01-08 06:29 | NUR ---
Patient in room ORTHO 4020. I have received report from MAINE Jernigan and had the opportunity to ask questions and assume patient care.
[2023-01-08 06:48] LABS: BASOPHILS # (AUTO) 0.1 X10'3 (0-0.2); BASOPHILS % (AUTO) 0.7 % (0-1); EOSINOPHILS # (AUTO) 0.2 X10'3 (0-0.9); EOSINOPHILS % (AUTO) 2.9 % (0-6); HEMATOCRIT 22.6 % (35.0-45.0); HEMOGLOBIN 7.5 g/dl (12.0-16.0); LYMPHOCYTES # (AUTO) 1.5 X10'3 (1.1-4.8); MEAN CORPUSCULAR HEMOGLOBIN 27.9 PG (27.0-31.0); MEAN CORPUSCULAR HGB CONC 33.3 g/dL (33.0-36.5); MEAN CORPUSCULAR VOLUME 83.7 FL (78-98); MEAN PLATELET VOLUME 9.3 FL (7.4-10.4); MONOCYTES % (AUTO) 11.4 % (2-12); NEUTROPHILS # (AUTO) 5.6 X10'3 (1.8-7.7); PLATELET COUNT 109 X10'3 (140-440); RED CELL DISTRIBUTION WIDTH 17.4 % (11.5-14.5); WHITE BLOOD COUNT 8.4 X10'3 (4.5-11.0)
[2023-01-08 06:51] VITALS: BP 144/78
[2023-01-08 06:55] LABS: ALANINE AMINOTRANSFERASE 38 U/L (12-78); ALBUMIN 1.9 G/DL (3.4-5.0); ALBUMIN/GLOBULIN RATIO 0.7 (1.1-1.5); ALKALINE PHOSPHATASE 52 IU/L (46-116); ANION GAP 9 (8-16); ASPARTATE AMINO TRANSFERASE 26 U/L (10-37); BILIRUBIN,TOTAL 0.3 MG/DL (0.1-1.0); BLOOD UREA NITROGEN 25 MG/DL (7-18); BUN/CREATININE RATIO 15.1 (10.0-20.0); CALCIUM 7.8 MG/DL (8.5-10.1); CHLORIDE 113 MMOL/L (99-107); CREATININE 1.66 MG/DL (0.40-0.90); GLUCOSE 131 MG/DL (70-104); MAGNESIUM 1.8 MG/DL (1.5-2.4); PHOSPHORUS 2.3 MG/DL (2.3-4.5); POTASSIUM 4.3 MMOL/L (3.5-5.1); SODIUM 144 MMOL/L (135-145); TOTAL CARBON DIOXIDE 22.4 MMOL/L (24-32); TOTAL PROTEIN 4.5 G/DL (6.4-8.2); eGFR 31 ML/MIN
[2023-01-08] MEDS: nitrofuran monohydrate/nitrofuran macrocrysal 100 MG (MacroBID) capsule PO SCH (07:11)
[2023-01-08] MEDS: docusate sod 100mg capsule PO SCH ×2 (07:11→20:55)
[2023-01-08] MEDS: aspirin 81mg, enteric-coated 1 TAB TABLET.DR PO SCH (07:11)
[2023-01-08] MEDS: lisinopril 20mg tablet PO SCH (07:11)
[2023-01-08] MEDS: CefTRIAXone 2gm/D5W 50ml BAG 50 ML IV SCH (07:12)
[2023-01-08] MEDS: heparin, porcine 5000 units/ml vial SQ SCH ×2 (07:12→20:00)
[2023-01-08] MEDS: amLODIPine 5mg tablet PO SCH (07:12)
[2023-01-08] MEDS: pantoprazole 40mg Tablet.DR PO SCH (07:12)
[2023-01-08] MEDS: K and/or MAG REPLACEMENT MC SCH ×4 (08:00→20:48)
[2023-01-08] MEDS: lactose-reduced food (Ensure Enlive) - 237ml bottle PO SCH ×3 (08:41→20:55)
[2023-01-08 11:17] VITALS: BP 162/63
[2023-01-08] MEDS: hydrALAZINE 20mg/ml inj. IV PRN (11:30)
--- NOTE | 2023-01-08 12:33 | NUR ---
Message: 4020B- Mary Jonas- pt son at bedside. asking when patient can go home. states he and pt prefer patient to dc home than snf- gloria [phone]
--- NOTE | 2023-01-08 13:56 | NUR ---
Message: Diandra Gould Patient son in room, and does want to take patient home. Miranda [phone]
--- NOTE | 2023-01-08 14:55 | NUR ---
Notified CM patient's son now does not feel he is able to take patient home.
[2023-01-08 15:05] VITALS: BP 133/47
[2023-01-08] MEDS: potassium CL 20mEq in D5-1/2NS 1,000 ML IV SCH (16:55)
[2023-01-08 18:00] VITALS: BP 178/70
--- NOTE | 2023-01-08 18:30 | NUR ---
Patient in room ORTHO MAINE Hines. I have received report from JF Valle and had the opportunity to ask questions and assume patient care.
--- NOTE | 2023-01-08 18:38 | NUR ---
Problems reprioritized. Patient report given, questions answered & plan of care reviewed with MAINE Traore.
[2023-01-08] MEDS: atorvastatin 20mg tablet PO SCH (20:55)
[2023-01-08] MEDS: polyethylene glycol 3350 17gm powd pack PO SCH (20:55)
[2023-01-08] MEDS: insulin glargine (Lantus) pen - multi-dose SQ SCH (21:00)
[2023-01-08 22:00] VITALS: BP 144/74
--- NOTE | 2023-01-08 22:00 | NUR ---
Agree with assessment done by Eugenie Johnson.
[2023-01-08] MEDS: acetaminophen 325mg tablet PO PRN (23:08)
--- NOTE | 2023-01-09 06:20 | NUR ---
Problems reprioritized. Patient report given, questions answered & plan of care reviewed with MAINE Wren.
--- NOTE | 2023-01-09 06:28 | NUR ---
Patient in room ORTHO 4020. I have received report from JF Traore and had the opportunity to ask questions and assume patient care.
[2023-01-09 06:30] LABS: BASOPHILS % (AUTO) 0.4 % (0-1); EOSINOPHILS # (AUTO) 0.2 X10'3 (0-0.9); EOSINOPHILS % (AUTO) 2.4 % (0-6); HEMATOCRIT 24.2 % (35.0-45.0); LYMPHOCYTES # (AUTO) 1.5 X10'3 (1.1-4.8); LYMPHOCYTES % (AUTO) 17.3 % (21-51); MEAN CORPUSCULAR HEMOGLOBIN 27.6 PG (27.0-31.0); MEAN CORPUSCULAR HGB CONC 33.2 g/dL (33.0-36.5); MEAN CORPUSCULAR VOLUME 83.3 FL (78-98); MEAN PLATELET VOLUME 9.4 FL (7.4-10.4); MONOCYTES % (AUTO) 11.7 % (2-12); NEUTROPHILS % (AUTO) 68.2 % (42-75); PLATELET COUNT 113 X10'3 (140-440); RED BLOOD COUNT 2.91 X10'6 (4.20-5.60); RED CELL DISTRIBUTION WIDTH 16.9 % (11.5-14.5); WHITE BLOOD COUNT 8.7 X10'3 (4.5-11.0)
[2023-01-09 06:46] VITALS: BP 133/55
[2023-01-09 06:48] LABS: ALANINE AMINOTRANSFERASE 37 U/L (12-78); ALBUMIN 1.9 G/DL (3.4-5.0); ALBUMIN/GLOBULIN RATIO 0.7 (1.1-1.5); ALKALINE PHOSPHATASE 52 IU/L (46-116); ANION GAP 4 (8-16); ASPARTATE AMINO TRANSFERASE 23 U/L (10-37); BILIRUBIN,TOTAL 0.2 MG/DL (0.1-1.0); BLOOD UREA NITROGEN 28 MG/DL (7-18); BUN/CREATININE RATIO 16.5 (10.0-20.0); CHLORIDE 113 MMOL/L (99-107); GLUCOSE 128 MG/DL (70-104); MAGNESIUM 1.9 MG/DL (1.5-2.4); PHOSPHORUS 2.9 MG/DL (2.3-4.5); POTASSIUM 4.4 MMOL/L (3.5-5.1); SODIUM 143 MMOL/L (135-145); TOTAL CARBON DIOXIDE 26.1 MMOL/L (24-32); TOTAL PROTEIN 4.8 G/DL (6.4-8.2); eGFR 30 ML/MIN
[2023-01-09] MEDS: lisinopril 20mg tablet PO SCH (07:37)
[2023-01-09] MEDS: docusate sod 100mg capsule PO SCH ×2 (07:37→20:00)
[2023-01-09] MEDS: aspirin 81mg, enteric-coated 1 TAB TABLET.DR PO SCH (07:37)
[2023-01-09] MEDS: pantoprazole 40mg Tablet.DR PO SCH (07:37)
[2023-01-09] MEDS: lactose-reduced food (Ensure Enlive) - 237ml bottle PO SCH ×3 (07:38→21:33)
[2023-01-09] MEDS: amLODIPine 5mg tablet PO SCH (07:38)
[2023-01-09] MEDS: heparin, porcine 5000 units/ml vial SQ SCH ×2 (07:38→20:00)
[2023-01-09] MEDS: K and/or MAG REPLACEMENT MC SCH ×4 (08:00→20:49)
[2023-01-09] MEDS: insulin Lispro (HumaLOG) vial - multi-dose SQ SCH (09:54)
[2023-01-09 11:00] VITALS: BP 164/64
[2023-01-09] MEDS: DEXTROSE 15 GM of carb/4 tabs (each vial/BOTTLE has 4 tablets) PO PRN (12:27)
[2023-01-09 18:00] VITALS: BP 153/64
--- NOTE | 2023-01-09 18:37 | NUR ---
Patient in room ORTHO 4020. I have received report from MAINE Rodarte and had the opportunity to ask questions and assume patient care.
--- NOTE | 2023-01-09 18:44 | NUR ---
Problems reprioritized. Patient report given, questions answered & plan of care reviewed with MAINE Huston.
--- NOTE | 2023-01-09 20:40 | NUR ---
RIGGER HELPER documentation: I have reviewed and agree with all interventions, assessments performed and documented by Eugenie Osborne RIGGER HELPER.
--- NOTE | 2023-01-09 20:50 | NUR ---
FURNACE PROCESS SUPERVISOR documentation: I have reviewed and agree with all interventions, assessments performed and documented by Eugenie Osborne FURNACE PROCESS SUPERVISOR.
[2023-01-09] MEDS: polyethylene glycol 3350 17gm powd pack PO SCH (21:00)
[2023-01-09] MEDS: insulin glargine (Lantus) pen - multi-dose SQ SCH (21:00)
[2023-01-09] MEDS: atorvastatin 20mg tablet PO SCH (21:33)
[2023-01-09] MEDS: acetaminophen 325mg tablet PO PRN (21:33)
[2023-01-09 22:00] VITALS: BP 144/73
[2023-01-10] MEDS ORDERED: HYDROcodone/acetaminophen 5mg/325mg tablet PO ONE (02:15)
[2023-01-10 06:00] VITALS: BP 133/68
--- NOTE | 2023-01-10 06:28 | NUR ---
Problems reprioritized. Patient report given, questions answered & plan of care reviewed with JF Griffith.
--- NOTE | 2023-01-10 06:43 | NUR ---
Received report from JF Traore. Reviewed patients plan of care. Checked on, no acute distress at this time. Bed locked, lowest position, call simon within reach.
[2023-01-10] MEDS: amLODIPine 5mg tablet PO SCH (07:47)
[2023-01-10] MEDS: docusate sod 100mg capsule PO SCH ×2 (07:47→20:00)
[2023-01-10] MEDS: aspirin 81mg, enteric-coated 1 TAB TABLET.DR PO SCH (07:47)
[2023-01-10] MEDS: heparin, porcine 5000 units/ml vial SQ SCH ×2 (07:48→20:00)
[2023-01-10] MEDS: pantoprazole 40mg Tablet.DR PO SCH (07:55)
[2023-01-10] MEDS: K and/or MAG REPLACEMENT MC SCH ×4 (08:00→20:00)
[2023-01-10] MEDS: lactose-reduced food (Ensure Enlive) - 237ml bottle PO SCH ×3 (08:14→21:12)
[2023-01-10] MEDS: lisinopril 20mg tablet PO SCH (08:14)
[2023-01-10 10:00] VITALS: BP 149/61
--- NOTE | 2023-01-10 11:50 | NUR ---
Reassessment: PO intake of meals remains poor overall however is improved to average 30% since 01/07. Pt now receiving an Ensure Enlive TID and with great acceptance, documented with average 81% PO intake of ONS since 01/07. Combined PO intake of meals and ONS is meeting 100% estimated protein and energy needs. LBM 01/09 per EMR. No further nutrition intervention implemented at this time. Will continue to follow and make recommendations as appropriate. Recommendations: 1) Continue regular/EC7 diet per MD; carb controlled not indicated given poor meal acceptance and A1c 6.3% 2) Ensure Enlive TIDWM to optimize nutrient intake 3) Encourage PO intake; assist with meals as needed given ALOC 4) Routine bowel care 5) Scaled weight this admit; subsequent weekly scaled weights Addendum: 01/10/23 at [address] Amended: Links added.
--- NOTE | 2023-01-10 15:31 | NUR ---
Frequently encouraging patient to walk with assistance and explained the benefits to keep up on it. However, she has declined every single time I have been there. The only time she had accepted is with PT this am. Will continue to try.
[2023-01-10 18:00] VITALS: BP 127/54
--- NOTE | 2023-01-10 18:35 | NUR ---
Patient in room ORTHO 4020. I have received report from JF Griffith and had the opportunity to ask questions and assume patient care.
--- NOTE | 2023-01-10 18:36 | NUR ---
Sat Pt up in bed, and set up meal tray. Pt is eating dinner with Minimal assistance. Some encouragement is required. Will continue to assist with Pt care.
--- NOTE | 2023-01-10 18:46 | NUR ---
ACCOUNT SERVICE REPRESENTATIVE documentation: I have reviewed and agree with all interventions, assessments performed and documented by Vale Gonsales LVN.
[2023-01-10] MEDS: insulin glargine (Lantus) pen - multi-dose SQ SCH (21:00)
[2023-01-10] MEDS: polyethylene glycol 3350 17gm powd pack PO SCH (21:00)
[2023-01-10] MEDS: acetaminophen 325mg tablet PO PRN (21:11)
[2023-01-10] MEDS: atorvastatin 20mg tablet PO SCH (21:12)
[2023-01-10 22:00] VITALS: BP 166/63
[2023-01-11] MEDS: acetaminophen 325mg tablet PO PRN (04:09)
[2023-01-11 05:39] LABS: BASOPHILS % (AUTO) 0.6 % (0-1); EOSINOPHILS # (AUTO) 0.2 X10'3 (0-0.9); EOSINOPHILS % (AUTO) 1.9 % (0-6); HEMATOCRIT 22.1 % (35.0-45.0); HEMOGLOBIN 7.4 g/dl (12.0-16.0); LYMPHOCYTES # (AUTO) 1.7 X10'3 (1.1-4.8); LYMPHOCYTES % (AUTO) 19.9 % (21-51); MEAN CORPUSCULAR HEMOGLOBIN 27.9 PG (27.0-31.0); MEAN CORPUSCULAR HGB CONC 33.4 g/dL (33.0-36.5); MEAN CORPUSCULAR VOLUME 83.6 FL (78-98); MONOCYTES # (AUTO) 0.9 X10'3 (0-0.9); MONOCYTES % (AUTO) 10.1 % (2-12); NEUTROPHILS # (AUTO) 5.7 X10'3 (1.8-7.7); NEUTROPHILS % (AUTO) 67.5 % (42-75); PLATELET COUNT 145 X10'3 (140-440); RED BLOOD COUNT 2.64 X10'6 (4.20-5.60); RED CELL DISTRIBUTION WIDTH 17.2 % (11.5-14.5); WHITE BLOOD COUNT 8.5 X10'3 (4.5-11.0)
[2023-01-11 05:54] LABS: ANION GAP 5 (8-16); BLOOD UREA NITROGEN 35 MG/DL (7-18); BUN/CREATININE RATIO 20.6 (10.0-20.0); CALCIUM 8.3 MG/DL (8.5-10.1); CHLORIDE 108 MMOL/L (99-107); GLUCOSE 165 MG/DL (70-104); MAGNESIUM 1.9 MG/DL (1.5-2.4); PHOSPHORUS 3.1 MG/DL (2.3-4.5); POTASSIUM 4.4 MMOL/L (3.5-5.1); SODIUM 140 MMOL/L (135-145); TOTAL CARBON DIOXIDE 27.2 MMOL/L (24-32); eGFR 30 ML/MIN
[2023-01-11 05:55] LABS: ALANINE AMINOTRANSFERASE 31 U/L (12-78); ALBUMIN 1.7 G/DL (3.4-5.0); ALBUMIN/GLOBULIN RATIO 0.5 (1.1-1.5); ALKALINE PHOSPHATASE 49 IU/L (46-116); ASPARTATE AMINO TRANSFERASE 16 U/L (10-37); BILIRUBIN,TOTAL 0.2 MG/DL (0.1-1.0); TOTAL PROTEIN 4.9 G/DL (6.4-8.2)
[2023-01-11 06:00] VITALS: BP 151/72
--- NOTE | 2023-01-11 06:00 | NUR ---
I agree with physical assessment
--- NOTE | 2023-01-11 06:13 | NUR ---
Received report from JF Traore. Reviewed patients plan of care. Checked on, no acute distress at this time. Bed locked, lowest position, call simon within reach.
--- NOTE | 2023-01-11 06:25 | NUR ---
Problems reprioritized. Patient report given, questions answered & plan of care reviewed with JF Griffith.
[2023-01-11] MEDS: docusate sod 100mg capsule PO SCH ×2 (07:20→19:55)
[2023-01-11] MEDS: lisinopril 20mg tablet PO SCH (07:20)
[2023-01-11] MEDS: amLODIPine 5mg tablet PO SCH (07:21)
[2023-01-11] MEDS: aspirin 81mg, enteric-coated 1 TAB TABLET.DR PO SCH (07:22)
[2023-01-11] MEDS: pantoprazole 40mg Tablet.DR PO SCH (07:22)
[2023-01-11] MEDS: heparin, porcine 5000 units/ml vial SQ SCH ×2 (07:22→19:56)
[2023-01-11] MEDS: K and/or MAG REPLACEMENT MC SCH ×4 (07:25→19:37)
[2023-01-11] MEDS: lactose-reduced food (Ensure Enlive) - 237ml bottle PO SCH ×3 (07:26→21:40)
--- NOTE | 2023-01-11 07:44 | NUR ---
promotional table spacer promotional table spacer Page Sent promotional table spacer PAGER ID: [phone] MESSAGE: Vale: [id number] PT: Mary Jim RM: [id number] Wesley and AURY her H&H is 7.4 and 22.1 from 24.2 & 8.0 yesterday. Thank you! (115 character message out of a maximum of 240) CLOSE [X]
[2023-01-11 10:00] VITALS: BP 143/64
--- NOTE | 2023-01-11 15:14 | NUR ---
RESIDENTIAL SUPPORT WORKER documentation: I have reviewed and agree with all interventions, assessments performed and documented by Vale Gonsales LVN .
[2023-01-11 18:00] VITALS: BP 144/65
--- NOTE | 2023-01-11 18:40 | NUR ---
Patient in room ORTHO 4020. I have received report from abbey RHOADES and had the opportunity to ask questions and assume patient care.
[2023-01-11] MEDS: insulin Lispro (HumaLOG) vial - multi-dose SQ SCH (19:34)
[2023-01-11] MEDS: polyethylene glycol 3350 17gm powd pack PO SCH (19:56)
[2023-01-11] MEDS: atorvastatin 20mg tablet PO SCH (19:56)
[2023-01-11] MEDS: insulin glargine (Lantus) pen - multi-dose SQ SCH (21:12)
--- NOTE | 2023-01-11 22:10 | NUR ---
bladder scanned pt at 2200, pt has 382cc no straight cath needed at this time.
[2023-01-11 22:17] VITALS: BP 147/53
--- NOTE | 2023-01-11 23:31 | NUR ---
reviewed and edited SVN assessment per my findings.
[2023-01-12 06:00] VITALS: BP 154/63
[2023-01-12 06:10] LABS: ALANINE AMINOTRANSFERASE 26 U/L (12-78); ALBUMIN 1.7 G/DL (3.4-5.0); ALBUMIN/GLOBULIN RATIO 0.5 (1.1-1.5); ALKALINE PHOSPHATASE 51 IU/L (46-116); ANION GAP 6 (8-16); ASPARTATE AMINO TRANSFERASE 16 U/L (10-37); BILIRUBIN,TOTAL 0.2 MG/DL (0.1-1.0); BLOOD UREA NITROGEN 42 MG/DL (7-18); BUN/CREATININE RATIO 25.6 (10.0-20.0); CALCIUM 8.4 MG/DL (8.5-10.1); CHLORIDE 109 MMOL/L (99-107); CREATININE 1.64 MG/DL (0.40-0.90); GLUCOSE 120 MG/DL (70-104); MAGNESIUM 1.9 MG/DL (1.5-2.4); PHOSPHORUS 2.9 MG/DL (2.3-4.5); POTASSIUM 4.3 MMOL/L (3.5-5.1); SODIUM 143 MMOL/L (135-145); TOTAL CARBON DIOXIDE 28.1 MMOL/L (24-32); TOTAL PROTEIN 5.2 G/DL (6.4-8.2); eGFR 32 ML/MIN
--- NOTE | 2023-01-12 06:14 | NUR ---
Patient in room ORTHO 4020. I have received report from Ana María Arriaga RN & Alcira RHOADES and had the opportunity to ask questions and assume patient care.
[2023-01-12 06:25] LABS: BASOPHILS % (AUTO) 0.5 % (0-1); EOSINOPHILS # (AUTO) 0.1 X10'3 (0-0.9); EOSINOPHILS % (AUTO) 1.6 % (0-6); HEMOGLOBIN 7.1 g/dl (12.0-16.0); LYMPHOCYTES # (AUTO) 2.4 X10'3 (1.1-4.8); LYMPHOCYTES % (AUTO) 28.3 % (21-51); MEAN CORPUSCULAR HEMOGLOBIN 27.5 PG (27.0-31.0); MEAN CORPUSCULAR HGB CONC 32.8 g/dL (33.0-36.5); MEAN CORPUSCULAR VOLUME 83.6 FL (78-98); MEAN PLATELET VOLUME 9.8 FL (7.4-10.4); MONOCYTES # (AUTO) 0.7 X10'3 (0-0.9); MONOCYTES % (AUTO) 7.9 % (2-12); NEUTROPHILS # (AUTO) 5.3 X10'3 (1.8-7.7); NEUTROPHILS % (AUTO) 61.7 % (42-75); PLATELET COUNT 167 X10'3 (140-440); RED BLOOD COUNT 2.58 X10'6 (4.20-5.60); RED CELL DISTRIBUTION WIDTH 17.3 % (11.5-14.5); WHITE BLOOD COUNT 8.5 X10'3 (4.5-11.0)
--- NOTE | 2023-01-12 06:27 | NUR ---
Problems reprioritized. Patient report given to Sammy RHOADES, questions answered & plan of care reviewed with .
[2023-01-12 07:01] LABS: HEMATOCRIT 21.5 % (35.0-45.0)
--- NOTE | 2023-01-12 07:04 | NUR ---
PAGER ID: [phone] MESSAGE: [id number] - Alton Jim - Pt has critical HCT 21.5 , HGB is 7.1. Please advise, thank you. - Sammy [phone]
--- NOTE | 2023-01-12 07:15 | NUR ---
called back r/t critical HCT of 21.5. advised no transfusion at this time.
[2023-01-12] MEDS: K and/or MAG REPLACEMENT MC SCH ×2 (08:00)
[2023-01-12] MEDS: docusate sod 100mg capsule PO SCH (08:37)
[2023-01-12] MEDS: pantoprazole 40mg Tablet.DR PO SCH (08:37)
[2023-01-12] MEDS: aspirin 81mg, enteric-coated 1 TAB TABLET.DR PO SCH (08:37)
[2023-01-12] MEDS: amLODIPine 5mg tablet PO SCH (08:38)
[2023-01-12] MEDS: lisinopril 20mg tablet PO SCH (08:38)
[2023-01-12] MEDS: lactose-reduced food (Ensure Enlive) - 237ml bottle PO SCH ×2 (08:39→13:11)
[2023-01-12] MEDS: heparin, porcine 5000 units/ml vial SQ SCH (08:39)
[2023-01-12] MEDS: insulin Lispro (HumaLOG) vial - multi-dose SQ SCH (09:38)
[2023-01-12 10:05] LABS: % IRON SATURATION 30 % (11-46); IRON 43 UG/DL (49-151); TOTAL IRON BINDING CAPACITY 144 UG/DL (259-388)
[2023-01-12 11:10] VITALS: BP 108/50
[2023-01-12] MEDS: DEXTROSE 15 GM of carb/4 tabs (each vial/BOTTLE has 4 tablets) PO PRN (12:09)
[2023-01-12] MEDS ORDERED: FERR324T4 PO (12:30)
[2023-01-12] MEDS ORDERED: ACET-1008 PO (12:31)
--- NOTE | 2023-01-12 12:35 | NUR ---
Patients glucose at 1206 was 66. Pt was given juice and a sandwich. Rechecked pt and glucose had gone up to 94. Pt now eating lunch. No s/sx of hypoglycemia noted.
--- NOTE | 2023-01-12 15:50 | NUR ---
Pt stable for discharge. Pt left with all belongings. No IV present at D/C. Patient discharging home with son at bedside. Son signed all d/c paperwork. Patient assisted out in wheelchair with one staff member present. Patient left in Uber with son to go home.
== END 2023-01-12 15:37 | disposition home or self-care (01) | DRG 469 ==
LOC: ER 18:01 → ED HOLD 22:00 → ORTHO 4S 23:15
PROVIDERS: ADMIT Family Medicine; ATTEND Internal Medicine
DX: N17.9 Acute kidney failure, unspecified (principal); G93.41 Metabolic encephalopathy; E87.0 Hyperosmolality and hypernatremia; E87.20 Acidosis, unspecified; I13.0 Hypertensive heart and chronic kidney disease with heart failure and stage 1 through stage 4 chronic kidney disease, or unspecified chronic kidney disease; I50.9 Heart failure, unspecified; E11.22 Type 2 diabetes mellitus with diabetic chronic kidney disease; D64.9 Anemia, unspecified; E11.42 Type 2 diabetes mellitus with diabetic polyneuropathy; E86.0 Dehydration; E78.5 Hyperlipidemia, unspecified; K57.90 Diverticulosis of intestine, part unspecified, without perforation or abscess without bleeding; E11.65 Type 2 diabetes mellitus with hyperglycemia; Z60.2 Problems related to living alone; G89.29 Other chronic pain; K21.9 Gastro-esophageal reflux disease without esophagitis; F17.210 Nicotine dependence, cigarettes, uncomplicated; M54.9 Dorsalgia, unspecified; E87.6 Hypokalemia; R26.2 Difficulty in walking, not elsewhere classified; J44.9 Chronic obstructive pulmonary disease, unspecified; K59.00 Constipation, unspecified; K76.0 Fatty (change of) liver, not elsewhere classified; N18.30 Chronic kidney disease, stage 3 unspecified; N39.0 Urinary tract infection, site not specified; Z79.82 Long term (current) use of aspirin; Z86.73 Personal history of transient ischemic attack (TIA), and cerebral infarction without residual deficits; Z91.148 Patient's other noncompliance with medication regimen for other reason; Z59.00 Homelessness unspecified; Z88.5 Allergy status to narcotic agent; Z79.899 Other long term (current) drug therapy
CPT/HCPCS: 36415; 70450; 71045; 80053; 80061; 80305; 81001; 82550; 82948; 83036; 83540; 83550; 83605; 83690; 83735; 83880; 84100; 84132; 84145; 84443; 84484; 85025; 85610; 85730; 87040; 87081; 87088; 93005; 93306; 96365; 97110; 97116; 97161; 97530; 97535; 99285; A6209; A6212; A6213; A6250; A6258; G0378; J0360; J0696; J1644; J1815; J2060; J3480; J3490; J7030; J7050; Q0163

== ENCOUNTER 2023-01-31 21:47 | Inpatient (IN) | payer MEDICAID ==
[~2023-01-31] VITALS: Ht 170.2 cm; Wt 63.6 kg
[~2023-01-31 21:47] MED LIST changes: +ACET-1008 PO; -ATOR20TA66 PO; -BACL-11 PO; -CEPH-585 PO; +FERR324T4 PO; -FLUT16SP2 BOTHNARES; -INSU100I31 SQ; -MV-M1TAB19 PO; -NAPR-1154 PO; +ROSU20TA73 PO; -[UNRECOGNIZED DRUG - REMARK] SQVAC
[2023-01-31] MEDS ORDERED: iohexol 350MG/ML 100ml bottle IV ONE (21:59)
[2023-01-31] MEDS ORDERED: normal saline 1000ML IV soln IVB ONE (22:30)
[2023-01-31 22:33] LABS: BASOPHILS # (AUTO) 0.1 X10'3 (0-0.2); BASOPHILS % (AUTO) 1.3 % (0-1); EOSINOPHILS # (AUTO) 0.3 X10'3 (0-0.9); EOSINOPHILS % (AUTO) 2.8 % (0-6); HEMATOCRIT 29.5 % (35.0-45.0); HEMOGLOBIN 9.5 g/dl (12.0-16.0); LYMPHOCYTES # (AUTO) 1.9 X10'3 (1.1-4.8); LYMPHOCYTES % (AUTO) 19.9 % (21-51); MEAN CORPUSCULAR HEMOGLOBIN 27.6 PG (27.0-31.0); MEAN CORPUSCULAR HGB CONC 32.3 g/dL (33.0-36.5); MEAN CORPUSCULAR VOLUME 85.6 FL (78-98); MEAN PLATELET VOLUME 8.5 FL (7.4-10.4); MONOCYTES # (AUTO) 0.8 X10'3 (0-0.9); NEUTROPHILS # (AUTO) 6.6 X10'3 (1.8-7.7); PLATELET COUNT 313 X10'3 (140-440); RED BLOOD COUNT 3.45 X10'6 (4.20-5.60); RED CELL DISTRIBUTION WIDTH 16.5 % (11.5-14.5); WHITE BLOOD COUNT 9.7 X10'3 (4.5-11.0)
[2023-01-31 22:38] LABS: APTT 26 SECONDS (22-32)
[2023-01-31 22:41] LABS: ALANINE AMINOTRANSFERASE 19 U/L (12-78); ALBUMIN 2.8 G/DL (3.4-5.0); ALBUMIN/GLOBULIN RATIO 0.7 (1.1-1.5); ALKALINE PHOSPHATASE 56 IU/L (46-116); ANION GAP 13 (8-16); ASPARTATE AMINO TRANSFERASE 17 U/L (10-37); BILIRUBIN,TOTAL 0.3 MG/DL (0.1-1.0); BLOOD UREA NITROGEN 50 MG/DL (7-18); BUN/CREATININE RATIO 19.4 (10.0-20.0); CALCIUM 9.3 MG/DL (8.5-10.1); CHLORIDE 106 MMOL/L (99-107); CREATININE 2.58 MG/DL (0.40-0.90); GLUCOSE 175 MG/DL (70-104); POTASSIUM 5.4 MMOL/L (3.5-5.1); SODIUM 143 MMOL/L (135-145); TOTAL CARBON DIOXIDE 24.3 MMOL/L (24-32); TOTAL PROTEIN 6.6 G/DL (6.4-8.2); eGFR 19 ML/MIN
[2023-01-31 22:55] LABS: ETHANOL < 0.010 GM/DL (0.0-0.010)
[2023-01-31] MEDS ORDERED: aspirin 325mg tablet, delayed-release (Ecotrin) PO ONE (23:00)
[2023-01-31] MEDS ORDERED: LevETIRAcetam 1,000MG in NORMAL SALINE 100ml IV.SOLN IV ONE ×2 (23:30→23:45)
[2023-01-31 23:50] LABS: URINE AMPHETAMINE SCREEN NEGATIVE (Neg); URINE BARBITUATE SCREEN NEGATIVE (Neg); URINE BENZODIAZEPINES SCREEN NEGATIVE (Neg); URINE CANNABINOID SCREEN NEGATIVE (Neg); URINE COCAINE SCREEN NEGATIVE (Neg); URINE METHADONE SCREEN NEGATIVE (Neg); URINE OPIATE SCREEN NEGATIVE (Neg); URINE PHENCYCLIDINE SCREEN NEGATIVE (Neg)
[2023-01-31] MEDS ORDERED: octreotide 100mcg/1 ml ampule IV ONE (23:55)
[2023-02-01 00:01] LABS: CLARITY,URINE CLEAR (Clear); COLOR,URINE YELLOW (Yellow); GLUCOSE, URINE 100 mg/dl (Neg); KETONES,URINE NEGATIVE (Neg); LEUKOCYTE ESTERASE ,URINE NEGATIVE (Neg); NITRITES, URINE NEGATIVE (Neg); OCCULT BLOOD,URINE NEGATIVE (Neg); PH,URINE 7.5 (4.8-8.0); PROTEIN,URINE >=300 mg/dl (Neg); UROBILINOGEN,URINE 0.2 E.U/dL (0.2-1.0)
[2023-02-01 00:07] LABS: UA COLLECTION TYPE STRAIGHT CATH
[2023-02-01 00:11] LABS: BACTERIA,URINE NONE SEEN /HPF (Neg); MUCUS STRANDS NONE SEEN /LPF (Neg); RBC,URINE 0-2 /HPF (0-2); SQUAMOUS EPITHELIAL CELL,UR FEW /LPF (FEW); WBC,URINE 0-4 /HPF (0-4)
[2023-02-01 00:12] LABS: HYALINE CASTS 0-3 /LPF (NEGATIVE)
[2023-02-01] MEDS ORDERED: ondansetron/PF 4mg/2ml inj IV PRN (00:25)
[2023-02-01] MEDS ORDERED: potassium Cl 20 mEq SR tablet PO PRN ×2 (00:25)
[2023-02-01] MEDS ORDERED: mag hydrox/Alum hydrox/simeth 30ml oral suspension PO PRN (00:25)
[2023-02-01] MEDS ORDERED: magnesium hydroxide 30ml (MOM) UD suspension PO PRN (00:25)
[2023-02-01] MEDS ORDERED: magnesium Cl slow-release 64mg tablet PO PRN (00:25)
[2023-02-01] MEDS ORDERED: magnesium 4gm in 100ml NS 100 ML IV PRN (00:25)
[2023-02-01] MEDS ORDERED: magnesium 2GM in 50ml NS 50 ML IV PRN (00:25)
[2023-02-01] MEDS ORDERED: potassium Cl 40MEQ/1/2NS 520ml 520 ML IV PRN (00:25)
[2023-02-01] MEDS ORDERED: calcium PO (00:41)
[2023-02-01] MEDS ORDERED: CHOL20002 PO (00:41)
[2023-02-01] MEDS ORDERED: MAGN250T11 PO (00:41)
[2023-02-01] MEDS ORDERED: CETI10TA19 PO (00:41)
[2023-02-01] MEDS ORDERED: FEXO-271 PO (00:41)
[2023-02-01] MEDS ORDERED: POTA99CA PO (00:41)
[2023-02-01] MEDS ORDERED: FERR325T28 PO (00:43)
[2023-02-01] MEDS ORDERED: ASPI81TA52 PO (00:43)
[2023-02-01] MEDS: pantoprazole 40MG/NS 100ML BAG 100 ML IV SCH ×5 (01:03→20:56)
[2023-02-01 03:18] LABS: MAGNESIUM 2.5 MG/DL (1.5-2.4); POTASSIUM 5.6 MMOL/L (3.5-5.1)
[2023-02-01] MEDS ORDERED: LISI20TA28 PO (04:27)
[2023-02-01] MEDS ORDERED: GABA300C PO (04:27)
[2023-02-01] MEDS ORDERED: PERFLUTREN PROTEIN-A MICROSPHR (Optison) 0.22 MG/ML 3ML VIAL IV ONE (08:00)
[2023-02-01] MEDS ORDERED: levetiracetam inj 1,000 MG in normal saline 100ml IV soln 90 ML IV ONE ×4 (08:00)
[2023-02-01] MEDS ORDERED: levetiracetam inj 1,000 MG in normal saline 100ml IV soln 90 ML IV SCH (08:00)
[2023-02-01] MEDS: K and/or MAG REPLACEMENT MC SCH ×2 (08:00→20:00)
[2023-02-01] MEDS ORDERED: aspirin 325mg tablet PO SCH (08:30)
[2023-02-01] MEDS: lisinopril 20mg tablet PO SCH (10:23)
[2023-02-01] MEDS: atorvastatin 20mg tablet PO SCH (10:23)
[2023-02-01] MEDS: docusate sod 100mg capsule PO SCH ×2 (10:24→20:00)
[2023-02-01] MEDS: cholecalciferol (vitamin D3) 1,000 unit (25mcg) tablet PO SCH (10:24)
[2023-02-01] MEDS: cetirizine 10mg tablet PO SCH (10:49)
[2023-02-01] MEDS: gabapentin 300mg capsule PO SCH (16:00)
[2023-02-01] MEDS ORDERED: haloperidol lactate 5mg/ml inj IM ONE (16:45)
[2023-02-01 19:42] VITALS: BP 190/85
[2023-02-01] MEDS: levetiracetam inj 1,000 MG in normal saline 100ml IV soln 100 ML IV SCH (21:43)
[2023-02-01 23:17] VITALS: BP 198/94
[2023-02-02] VITALS (8 sets, daily range): BP systolic 132–195; BP diastolic 52–87
[2023-02-02] MEDS: pantoprazole 40MG/NS 100ML BAG 100 ML IV SCH ×5 (01:04→21:06)
[2023-02-02 07:33] LABS: BASOPHILS # (AUTO) 0.1 X10'3 (0-0.2); BASOPHILS % (AUTO) 1.3 % (0-1); EOSINOPHILS # (AUTO) 0.3 X10'3 (0-0.9); EOSINOPHILS % (AUTO) 3.2 % (0-6); HEMATOCRIT 28.3 % (35.0-45.0); HEMOGLOBIN 9.1 g/dl (12.0-16.0); LYMPHOCYTES # (AUTO) 2.4 X10'3 (1.1-4.8); LYMPHOCYTES % (AUTO) 28.3 % (21-51); MEAN CORPUSCULAR HEMOGLOBIN 27.8 PG (27.0-31.0); MEAN CORPUSCULAR HGB CONC 32.3 g/dL (33.0-36.5); MEAN PLATELET VOLUME 8.4 FL (7.4-10.4); MONOCYTES # (AUTO) 0.7 X10'3 (0-0.9); MONOCYTES % (AUTO) 7.8 % (2-12); NEUTROPHILS # (AUTO) 4.9 X10'3 (1.8-7.7); NEUTROPHILS % (AUTO) 59.4 % (42-75); PLATELET COUNT 291 X10'3 (140-440); RED BLOOD COUNT 3.29 X10'6 (4.20-5.60); RED CELL DISTRIBUTION WIDTH 16.5 % (11.5-14.5); WHITE BLOOD COUNT 8.3 X10'3 (4.5-11.0)
[2023-02-02 07:48] LABS: ALANINE AMINOTRANSFERASE 15 U/L (12-78); ALBUMIN 2.7 G/DL (3.4-5.0); ALBUMIN/GLOBULIN RATIO 0.8 (1.1-1.5); ALKALINE PHOSPHATASE 54 IU/L (46-116); ANION GAP 11 (8-16); ASPARTATE AMINO TRANSFERASE 19 U/L (10-37); BILIRUBIN,TOTAL 0.4 MG/DL (0.1-1.0); BLOOD UREA NITROGEN 38 MG/DL (7-18); BUN/CREATININE RATIO 15.8 (10.0-20.0); CALCIUM 8.9 MG/DL (8.5-10.1); CHLORIDE 112 MMOL/L (99-107); GLUCOSE 110 MG/DL (70-104); MAGNESIUM 2.6 MG/DL (1.5-2.4); POTASSIUM 5.6 MMOL/L (3.5-5.1); SODIUM 146 MMOL/L (135-145); TOTAL CARBON DIOXIDE 22.7 MMOL/L (24-32); TOTAL PROTEIN 6.1 G/DL (6.4-8.2); eGFR 20 ML/MIN
[2023-02-02 07:53] LABS: % IRON SATURATION 16 % (11-46); IRON 34 UG/DL (49-151); TOTAL IRON BINDING CAPACITY 213 UG/DL (259-388)
[2023-02-02] MEDS ORDERED: non-formulary drug (Potassium Citrate (Potassium) 1 CAP) PO SCH (08:00)
[2023-02-02] MEDS ORDERED: CALCIUM PO SCH (08:00)
[2023-02-02] MEDS: K and/or MAG REPLACEMENT MC SCH ×2 (08:00→20:00)
[2023-02-02] MEDS ORDERED: sodium polystyrene sulfonate 15gm/60ml oral suspension PO ONE (08:20)
[2023-02-02 08:27] LABS: FERRITIN 316 NG/ML (8-252)
[2023-02-02] MEDS ORDERED: iron dextran complex inj. 0 MG in normal saline 500ml IV soln 500 ML IV SCH (09:00)
[2023-02-02] MEDS ORDERED: iron dextran complex inj. 25 MG in normal saline 50ml IV soln 49.5 ML IV ONE (09:00)
[2023-02-02] MEDS: levetiracetam inj 1,000 MG in normal saline 100ml IV soln 100 ML IV SCH ×2 (09:24→19:50)
[2023-02-02] MEDS: aspirin 81mg, enteric-coated 1 TAB TABLET.DR PO SCH (09:55)
[2023-02-02] MEDS: ferrous sulfate 325mg tablet PO SCH (09:56)
[2023-02-02] MEDS: cholecalciferol (vitamin D3) 1,000 unit (25mcg) tablet PO SCH (09:59)
[2023-02-02] MEDS: lisinopril 20mg tablet PO SCH (10:00)
[2023-02-02] MEDS: atorvastatin 20mg tablet PO SCH (10:01)
[2023-02-02] MEDS: gabapentin 300mg capsule PO SCH ×2 (10:02)
[2023-02-02] MEDS: docusate sod 100mg capsule PO SCH ×2 (10:03→19:59)
[2023-02-02] MEDS: cetirizine 10mg tablet PO SCH (10:03)
[2023-02-02] MEDS: loratadine 10mg tablet PO SCH (10:03)
[2023-02-02] MEDS: magnesium oxide 400mg tablet PO SCH (10:05)
[2023-02-02] MEDS ORDERED: iron dextran complex inj. 25 MG in normal saline 100ml IV soln 100 ML IV ONE (10:25)
[2023-02-02] MEDS ORDERED: IRON DEXTRAN COMPLEX IV ONE (12:00)
[2023-02-02] MEDS ORDERED: NORMAL SALINE IV ONE (12:00)
[2023-02-02] MEDS: amLODIPine 5mg tablet PO SCH (17:52)
[2023-02-03] VITALS (8 sets, daily range): BP systolic 141–166; BP diastolic 68–83
[2023-02-03] MEDS: pantoprazole 40MG/NS 100ML BAG 100 ML IV SCH ×2 (01:00→03:57)
[2023-02-03 07:54] LABS: BASOPHILS # (AUTO) 0.1 X10'3 (0-0.2); BASOPHILS % (AUTO) 1.1 % (0-1); EOSINOPHILS # (AUTO) 0.3 X10'3 (0-0.9); EOSINOPHILS % (AUTO) 3.3 % (0-6); HEMATOCRIT 27.7 % (35.0-45.0); HEMOGLOBIN 8.9 g/dl (12.0-16.0); LYMPHOCYTES # (AUTO) 2.4 X10'3 (1.1-4.8); LYMPHOCYTES % (AUTO) 27.2 % (21-51); MEAN CORPUSCULAR HEMOGLOBIN 27.6 PG (27.0-31.0); MEAN CORPUSCULAR HGB CONC 32.2 g/dL (33.0-36.5); MEAN CORPUSCULAR VOLUME 85.8 FL (78-98); MEAN PLATELET VOLUME 8.3 FL (7.4-10.4); MONOCYTES # (AUTO) 0.7 X10'3 (0-0.9); MONOCYTES % (AUTO) 7.7 % (2-12); NEUTROPHILS # (AUTO) 5.3 X10'3 (1.8-7.7); NEUTROPHILS % (AUTO) 60.7 % (42-75); PLATELET COUNT 274 X10'3 (140-440); RED BLOOD COUNT 3.23 X10'6 (4.20-5.60); WHITE BLOOD COUNT 8.8 X10'3 (4.5-11.0)
[2023-02-03 07:55] LABS: ALANINE AMINOTRANSFERASE 17 U/L (12-78); ALBUMIN 2.6 G/DL (3.4-5.0); ALBUMIN/GLOBULIN RATIO 0.8 (1.1-1.5); ALKALINE PHOSPHATASE 53 IU/L (46-116); ANION GAP 13 (8-16); ASPARTATE AMINO TRANSFERASE 16 U/L (10-37); BILIRUBIN,TOTAL 0.4 MG/DL (0.1-1.0); BLOOD UREA NITROGEN 27 MG/DL (7-18); BUN/CREATININE RATIO 13.3 (10.0-20.0); CALCIUM 8.8 MG/DL (8.5-10.1); CHLORIDE 114 MMOL/L (99-107); CREATININE 2.03 MG/DL (0.40-0.90); GLUCOSE 95 MG/DL (70-104); MAGNESIUM 2.2 MG/DL (1.5-2.4); POTASSIUM 4.7 MMOL/L (3.5-5.1); SODIUM 148 MMOL/L (135-145); TOTAL CARBON DIOXIDE 21.1 MMOL/L (24-32); TOTAL PROTEIN 5.9 G/DL (6.4-8.2); eGFR 25 ML/MIN
[2023-02-03] MEDS: docusate sod 100mg capsule PO SCH ×2 (08:00→19:33)
[2023-02-03] MEDS: K and/or MAG REPLACEMENT MC SCH ×2 (08:00→20:00)
[2023-02-03] MEDS: levetiracetam inj 1,000 MG in normal saline 100ml IV soln 100 ML IV SCH (09:16)
[2023-02-03] MEDS: loratadine 10mg tablet PO SCH (09:17)
[2023-02-03] MEDS: aspirin 81mg, enteric-coated 1 TAB TABLET.DR PO SCH (09:18)
[2023-02-03] MEDS: atorvastatin 20mg tablet PO SCH (09:18)
[2023-02-03] MEDS: ferrous sulfate 325mg tablet PO SCH (09:18)
[2023-02-03] MEDS: gabapentin 400mg capsule PO SCH (09:19)
[2023-02-03] MEDS: magnesium oxide 400mg tablet PO SCH (09:19)
[2023-02-03] MEDS: cholecalciferol (vitamin D3) 1,000 unit (25mcg) tablet PO SCH (09:21)
[2023-02-03] MEDS: lisinopril 20mg tablet PO SCH (09:21)
[2023-02-03] MEDS: amLODIPine 5mg tablet PO SCH (09:21)
[2023-02-03] MEDS: cetirizine 10mg tablet PO SCH (09:21)
[2023-02-03] MEDS: levetiracetam 250mg tablet PO SCH (19:33)
[2023-02-03] MEDS: pantoprazole 40mg Tablet.DR PO SCH (19:33)
[2023-02-04 03:35] VITALS: BP 152/57
[2023-02-04] MEDS: dextrose 5%-1/2 normal saline 1,000 ML IV SCH ×2 (03:51→20:25)
[2023-02-04 06:00] VITALS: BP 161/81
[2023-02-04 07:48] LABS: BASOPHILS # (AUTO) 0.1 X10'3 (0-0.2); BASOPHILS % (AUTO) 0.9 % (0-1); EOSINOPHILS # (AUTO) 0.2 X10'3 (0-0.9); EOSINOPHILS % (AUTO) 1.7 % (0-6); HEMOGLOBIN 8.9 g/dl (12.0-16.0); LYMPHOCYTES # (AUTO) 1.8 X10'3 (1.1-4.8); LYMPHOCYTES % (AUTO) 15.9 % (21-51); MEAN CORPUSCULAR HEMOGLOBIN 27.2 PG (27.0-31.0); MEAN CORPUSCULAR HGB CONC 31.6 g/dL (33.0-36.5); MEAN CORPUSCULAR VOLUME 86.1 FL (78-98); MEAN PLATELET VOLUME 8.4 FL (7.4-10.4); MONOCYTES # (AUTO) 0.9 X10'3 (0-0.9); NEUTROPHILS # (AUTO) 8.4 X10'3 (1.8-7.7); NEUTROPHILS % (AUTO) 73.5 % (42-75); PLATELET COUNT 289 X10'3 (140-440); RED BLOOD COUNT 3.26 X10'6 (4.20-5.60); RED CELL DISTRIBUTION WIDTH 16.5 % (11.5-14.5); WHITE BLOOD COUNT 11.4 X10'3 (4.5-11.0)
[2023-02-04 07:53] LABS: ALANINE AMINOTRANSFERASE 13 U/L (12-78); ALBUMIN 2.6 G/DL (3.4-5.0); ALBUMIN/GLOBULIN RATIO 0.8 (1.1-1.5); ALKALINE PHOSPHATASE 54 IU/L (46-116); ANION GAP 13 (8-16); ASPARTATE AMINO TRANSFERASE 15 U/L (10-37); BILIRUBIN,TOTAL 0.4 MG/DL (0.1-1.0); BLOOD UREA NITROGEN 26 MG/DL (7-18); BUN/CREATININE RATIO 12.4 (10.0-20.0); CALCIUM 8.7 MG/DL (8.5-10.1); CHLORIDE 112 MMOL/L (99-107); GLUCOSE 136 MG/DL (70-104); MAGNESIUM 2.3 MG/DL (1.5-2.4); POTASSIUM 4.4 MMOL/L (3.5-5.1); SODIUM 146 MMOL/L (135-145); TOTAL CARBON DIOXIDE 20.7 MMOL/L (24-32); eGFR 24 ML/MIN
[2023-02-04] MEDS: K and/or MAG REPLACEMENT MC SCH ×2 (08:00→20:00)
[2023-02-04] MEDS: levetiracetam 250mg tablet PO SCH ×2 (08:58→21:15)
[2023-02-04] MEDS: amLODIPine 5mg tablet PO SCH (08:59)
[2023-02-04] MEDS: lisinopril 20mg tablet PO SCH (08:59)
[2023-02-04] MEDS: atorvastatin 20mg tablet PO SCH (09:00)
[2023-02-04] MEDS: pantoprazole 40mg Tablet.DR PO SCH ×2 (09:00→21:15)
[2023-02-04] MEDS: cholecalciferol (vitamin D3) 1,000 unit (25mcg) tablet PO SCH (09:00)
[2023-02-04] MEDS: cetirizine 10mg tablet PO SCH (09:00)
[2023-02-04] MEDS: aspirin 81mg, enteric-coated 1 TAB TABLET.DR PO SCH (09:01)
[2023-02-04] MEDS: docusate sod 100mg capsule PO SCH ×2 (09:01→20:00)
[2023-02-04] MEDS: gabapentin 400mg capsule PO SCH (09:01)
[2023-02-04] MEDS: magnesium oxide 400mg tablet PO SCH (09:01)
[2023-02-04] MEDS: loratadine 10mg tablet PO SCH (09:01)
[2023-02-04] MEDS: ferrous sulfate 325mg tablet PO SCH (09:02)
[2023-02-04 11:00] VITALS: BP 172/77
[2023-02-04] MEDS: acetaminophen 325mg tablet PO PRN (12:53)
[2023-02-04] MEDS: hydrALAZINE 20mg/ml inj. IV PRN (13:19)
[2023-02-04 16:28] VITALS: BP 144/78
[2023-02-04 18:30] VITALS: BP 142/70
[2023-02-04 22:00] VITALS: BP 115/79
[2023-02-05] MEDS ORDERED: docusate sodium 100mg/10ml UD cup PO SCH (05:58)
[2023-02-05 06:00] VITALS: BP 131/68
[2023-02-05 06:15] LABS: BASOPHILS # (AUTO) 0.1 X10'3 (0-0.2); BASOPHILS % (AUTO) 0.7 % (0-1); EOSINOPHILS # (AUTO) 0.2 X10'3 (0-0.9); EOSINOPHILS % (AUTO) 1.8 % (0-6); HEMATOCRIT 27.4 % (35.0-45.0); HEMOGLOBIN 8.6 g/dl (12.0-16.0); LYMPHOCYTES # (AUTO) 1.4 X10'3 (1.1-4.8); LYMPHOCYTES % (AUTO) 10.8 % (21-51); MEAN CORPUSCULAR HEMOGLOBIN 27.5 PG (27.0-31.0); MEAN CORPUSCULAR HGB CONC 31.5 g/dL (33.0-36.5); MEAN CORPUSCULAR VOLUME 87.3 FL (78-98); MEAN PLATELET VOLUME 8.7 FL (7.4-10.4); MONOCYTES % (AUTO) 7.5 % (2-12); NEUTROPHILS % (AUTO) 79.2 % (42-75); PLATELET COUNT 226 X10'3 (140-440); RED BLOOD COUNT 3.13 X10'6 (4.20-5.60); RED CELL DISTRIBUTION WIDTH 17.2 % (11.5-14.5); WHITE BLOOD COUNT 12.7 X10'3 (4.5-11.0)
[2023-02-05 06:33] LABS: ALANINE AMINOTRANSFERASE 10 U/L (12-78); ALBUMIN 2.2 G/DL (3.4-5.0); ALBUMIN/GLOBULIN RATIO 0.7 (1.1-1.5); ALKALINE PHOSPHATASE 49 IU/L (46-116); ANION GAP 12 (8-16); ASPARTATE AMINO TRANSFERASE 14 U/L (10-37); BILIRUBIN,TOTAL 0.3 MG/DL (0.1-1.0); BLOOD UREA NITROGEN 25 MG/DL (7-18); CHLORIDE 113 MMOL/L (99-107); CREATININE 2.08 MG/DL (0.40-0.90); GLUCOSE 135 MG/DL (70-104); MAGNESIUM 2.4 MG/DL (1.5-2.4); POTASSIUM 4.2 MMOL/L (3.5-5.1); SODIUM 145 MMOL/L (135-145); TOTAL CARBON DIOXIDE 19.8 MMOL/L (24-32); TOTAL PROTEIN 5.5 G/DL (6.4-8.2); eGFR 24 ML/MIN
[2023-02-05 06:53] LABS: CALCIUM 8.7 MG/DL (8.5-10.1)
[2023-02-05] MEDS: magnesium oxide 400mg tablet PO SCH (07:39)
[2023-02-05] MEDS: aspirin 81mg, enteric-coated 1 TAB TABLET.DR PO SCH (07:42)
[2023-02-05] MEDS: loratadine 10mg tablet PO SCH (07:42)
[2023-02-05] MEDS: gabapentin 400mg capsule PO SCH (07:43)
[2023-02-05] MEDS: atorvastatin 20mg tablet PO SCH (07:45)
[2023-02-05] MEDS: cholecalciferol (vitamin D3) 1,000 unit (25mcg) tablet PO SCH (07:45)
[2023-02-05] MEDS: ferrous sulfate 325mg tablet PO SCH (07:45)
[2023-02-05] MEDS: pantoprazole 40mg Tablet.DR PO SCH (07:46)
[2023-02-05] MEDS: cetirizine 10mg tablet PO SCH (07:46)
[2023-02-05] MEDS: amLODIPine 5mg tablet PO SCH (07:51)
[2023-02-05] MEDS: lisinopril 20mg tablet PO SCH (07:52)
[2023-02-05] MEDS: K and/or MAG REPLACEMENT MC SCH ×2 (08:00→20:00)
[2023-02-05 08:03] VITALS: BP 162/85
[2023-02-05] MEDS ORDERED: gabapentin 100mg capsule PO SCH (09:00)
[2023-02-05 10:00] VITALS: BP 116/64
[2023-02-05] MEDS ORDERED: MESSAGE TO PHARMACY PO ONE (10:30)
[2023-02-05] MEDS ORDERED: glucagon, human recombinant 1mg kit SUBCUT PRN (10:30)
[2023-02-05] MEDS ORDERED: levetiracetam inj 1,000 MG in normal saline 100ml IV soln 100 ML IV ONE (10:30)
[2023-02-05] MEDS ORDERED: DEXTROSE 15 GM of carb/4 tabs (each vial/BOTTLE has 4 tablets) PO PRN ×2 (10:30)
[2023-02-05] MEDS ORDERED: dextrose 50%-water 50ml dispensing syringe IV PRN ×2 (10:30)
[2023-02-05] MEDS: dextrose 5%-1/2 normal saline 1,000 ML IV SCH ×2 (14:10→17:42)
[2023-02-05 16:00] VITALS: BP 155/74
[2023-02-05 18:00] VITALS: BP 156/81
[2023-02-05] MEDS ORDERED: hydrALAZINE 20mg/ml inj. IV PRN (18:20)
[2023-02-05] MEDS: insulin glargine (Lantus) pen - multi-dose SQ SCH (21:00)
[2023-02-05] MEDS: levetiracetam inj 1,000 MG in normal saline 100ml IV soln 100 ML IV SCH (21:07)
[2023-02-05 22:00] VITALS: BP 137/71
[2023-02-06] MEDS: dextrose 5%-1/2 normal saline 1,000 ML IV SCH ×2 (05:01→15:26)
[2023-02-06 06:15] LABS: BASOPHILS # (AUTO) 0.1 X10'3 (0-0.2); BASOPHILS % (AUTO) 0.9 % (0-1); EOSINOPHILS # (AUTO) 0.4 X10'3 (0-0.9); EOSINOPHILS % (AUTO) 4.9 % (0-6); HEMATOCRIT 27.4 % (35.0-45.0); HEMOGLOBIN 8.7 g/dl (12.0-16.0); LYMPHOCYTES % (AUTO) 23.2 % (21-51); MEAN CORPUSCULAR HEMOGLOBIN 27.5 PG (27.0-31.0); MEAN CORPUSCULAR HGB CONC 31.8 g/dL (33.0-36.5); MEAN CORPUSCULAR VOLUME 86.4 FL (78-98); MEAN PLATELET VOLUME 8.5 FL (7.4-10.4); MONOCYTES # (AUTO) 0.8 X10'3 (0-0.9); NEUTROPHILS # (AUTO) 5.5 X10'3 (1.8-7.7); PLATELET COUNT 219 X10'3 (140-440); RED BLOOD COUNT 3.17 X10'6 (4.20-5.60); RED CELL DISTRIBUTION WIDTH 16.3 % (11.5-14.5); WHITE BLOOD COUNT 8.8 X10'3 (4.5-11.0)
[2023-02-06 06:33] LABS: ALANINE AMINOTRANSFERASE 11 U/L (12-78); ALBUMIN 2.3 G/DL (3.4-5.0); ALBUMIN/GLOBULIN RATIO 0.7 (1.1-1.5); ALKALINE PHOSPHATASE 50 IU/L (46-116); ANION GAP 14 (8-16); ASPARTATE AMINO TRANSFERASE 13 U/L (10-37); BILIRUBIN,TOTAL 0.3 MG/DL (0.1-1.0); BLOOD UREA NITROGEN 19 MG/DL (7-18); BUN/CREATININE RATIO 9.9 (10.0-20.0); CALCIUM 8.7 MG/DL (8.5-10.1); CHLORIDE 112 MMOL/L (99-107); CREATININE 1.92 MG/DL (0.40-0.90); GLUCOSE 145 MG/DL (70-104); SODIUM 147 MMOL/L (135-145); TOTAL CARBON DIOXIDE 21.4 MMOL/L (24-32); TOTAL PROTEIN 5.5 G/DL (6.4-8.2); eGFR 26 ML/MIN
[2023-02-06 06:47] VITALS: BP 163/79
[2023-02-06] MEDS: levetiracetam inj 1,000 MG in normal saline 100ml IV soln 100 ML IV SCH ×2 (07:47→21:58)
[2023-02-06] MEDS: pantoprazole 40MG/NS 100ML BAG 100 ML IV SCH (07:52)
[2023-02-06] MEDS: K and/or MAG REPLACEMENT MC SCH ×2 (08:00→20:00)
[2023-02-06] MEDS ORDERED: gabapentin 100mg capsule PO SCH (08:00)
[2023-02-06 09:51] VITALS: BP 168/78
[2023-02-06] MEDS ORDERED: aspirin 81mg tab.chew PO ONE (10:25)
[2023-02-06 10:45] LABS: CHOL/HDL RATIO 4.3 (0.00-4.99); CHOLESTEROL 218 MG/DL (0-200); HDL CHOLESTEROL 51 MG/DL (35-60); LDL CHOLESTEROL 126 MG/DL (50-100); TRIGLYCERIDES 203 MG/DL (20-135)
[2023-02-06] MEDS: atorvastatin 20mg tablet PO SCH (12:46)
[2023-02-06] MEDS: lactose-reduced food (Ensure Enlive) - 237ml bottle PO SCH ×2 (13:00→18:14)
[2023-02-06 15:00] VITALS: BP 162/72
[2023-02-06 18:00] VITALS: BP 162/72
[2023-02-06] MEDS: dextrose 5%-1/4 normal saline 1,000 ML IV SCH (18:09)
[2023-02-06] MEDS: insulin glargine (Lantus) pen - multi-dose SQ SCH (21:00)
[2023-02-06 22:00] VITALS: BP 149/67
[2023-02-07 07:17] VITALS: BP 158/70
[2023-02-07] MEDS: atorvastatin 20mg tablet PO SCH (07:59)
[2023-02-07] MEDS: aspirin 81mg tab.chew PO SCH (07:59)
[2023-02-07] MEDS: K and/or MAG REPLACEMENT MC SCH ×2 (08:00→21:24)
[2023-02-07] MEDS: dextrose 5%-1/4 normal saline 1,000 ML IV SCH ×3 (08:03→22:56)
[2023-02-07] MEDS: levetiracetam inj 1,000 MG in normal saline 100ml IV soln 100 ML IV SCH (08:03)
[2023-02-07] MEDS: pantoprazole 40MG/NS 100ML BAG 100 ML IV SCH (08:36)
[2023-02-07] MEDS: lactose-reduced food (Ensure Enlive) - 237ml bottle PO SCH ×3 (08:37→18:47)
[2023-02-07 10:00] VITALS: BP 125/65
[2023-02-07 11:09] LABS: BASOPHILS # (AUTO) 0.1 X10'3 (0-0.2); BASOPHILS % (AUTO) 0.7 % (0-1); EOSINOPHILS # (AUTO) 0.3 X10'3 (0-0.9); EOSINOPHILS % (AUTO) 3.6 % (0-6); HEMATOCRIT 25.5 % (35.0-45.0); HEMOGLOBIN 8.3 g/dl (12.0-16.0); LYMPHOCYTES # (AUTO) 1.4 X10'3 (1.1-4.8); LYMPHOCYTES % (AUTO) 15.6 % (21-51); MEAN CORPUSCULAR HEMOGLOBIN 27.7 PG (27.0-31.0); MEAN CORPUSCULAR HGB CONC 32.4 g/dL (33.0-36.5); MEAN CORPUSCULAR VOLUME 85.6 FL (78-98); MEAN PLATELET VOLUME 8.4 FL (7.4-10.4); MONOCYTES # (AUTO) 0.6 X10'3 (0-0.9); MONOCYTES % (AUTO) 7.1 % (2-12); NEUTROPHILS # (AUTO) 6.4 X10'3 (1.8-7.7); PLATELET COUNT 192 X10'3 (140-440); RED BLOOD COUNT 2.98 X10'6 (4.20-5.60); RED CELL DISTRIBUTION WIDTH 15.8 % (11.5-14.5); WHITE BLOOD COUNT 8.7 X10'3 (4.5-11.0)
[2023-02-07 11:21] LABS: ALANINE AMINOTRANSFERASE 10 U/L (12-78); ALBUMIN/GLOBULIN RATIO 0.6 (1.1-1.5); ALKALINE PHOSPHATASE 47 IU/L (46-116); ANION GAP 11 (8-16); ASPARTATE AMINO TRANSFERASE 12 U/L (10-37); BILIRUBIN,TOTAL 0.2 MG/DL (0.1-1.0); BLOOD UREA NITROGEN 18 MG/DL (7-18); BUN/CREATININE RATIO 9.7 (10.0-20.0); CALCIUM 8.3 MG/DL (8.5-10.1); CHLORIDE 111 MMOL/L (99-107); CREATININE 1.86 MG/DL (0.40-0.90); GLUCOSE 217 MG/DL (70-104); SODIUM 143 MMOL/L (135-145); TOTAL CARBON DIOXIDE 20.7 MMOL/L (24-32); TOTAL PROTEIN 5.1 G/DL (6.4-8.2); eGFR 27 ML/MIN
[2023-02-07] MEDS ORDERED: GADOTERATE MEGLUMINE 7.5 MMOL/15 ML VIAL IV ONE (13:41)
[2023-02-07 18:00] VITALS: BP 161/69
[2023-02-07] MEDS: levetiracetam inj 500 MG in normal saline 100ml IV soln 100 ML IV SCH (19:54)
[2023-02-07 22:00] VITALS: BP 148/70
[2023-02-07] MEDS: insulin glargine (Lantus) pen - multi-dose SQ SCH (22:21)
[2023-02-08] MEDS: acetaminophen 325mg tablet PO PRN (01:21)
[2023-02-08] MEDS ORDERED: pantoprazole 40MG/NS 100ML BAG 100 ML IV SCH ×2 (06:20→08:00)
[2023-02-08 06:31] VITALS: BP 169/76
[2023-02-08 06:40] LABS: BASOPHILS # (AUTO) 0.1 X10'3 (0-0.2); BASOPHILS % (AUTO) 0.9 % (0-1); EOSINOPHILS # (AUTO) 0.3 X10'3 (0-0.9); EOSINOPHILS % (AUTO) 3.4 % (0-6); HEMATOCRIT 24.4 % (35.0-45.0); HEMOGLOBIN 7.9 g/dl (12.0-16.0); LYMPHOCYTES # (AUTO) 2.2 X10'3 (1.1-4.8); LYMPHOCYTES % (AUTO) 26.9 % (21-51); MEAN CORPUSCULAR HEMOGLOBIN 27.8 PG (27.0-31.0); MEAN CORPUSCULAR HGB CONC 32.5 g/dL (33.0-36.5); MEAN CORPUSCULAR VOLUME 85.5 FL (78-98); MEAN PLATELET VOLUME 8.8 FL (7.4-10.4); MONOCYTES # (AUTO) 0.7 X10'3 (0-0.9); MONOCYTES % (AUTO) 8.3 % (2-12); NEUTROPHILS # (AUTO) 4.9 X10'3 (1.8-7.7); NEUTROPHILS % (AUTO) 60.5 % (42-75); PLATELET COUNT 182 X10'3 (140-440); RED BLOOD COUNT 2.85 X10'6 (4.20-5.60); RED CELL DISTRIBUTION WIDTH 15.3 % (11.5-14.5); WHITE BLOOD COUNT 8.1 X10'3 (4.5-11.0)
[2023-02-08 06:55] LABS: ALANINE AMINOTRANSFERASE 10 U/L (12-78); ALBUMIN 1.9 G/DL (3.4-5.0); ALBUMIN/GLOBULIN RATIO 0.6 (1.1-1.5); ALKALINE PHOSPHATASE 43 IU/L (46-116); ANION GAP 11 (8-16); ASPARTATE AMINO TRANSFERASE 10 U/L (10-37); BILIRUBIN,TOTAL 0.2 MG/DL (0.1-1.0); BLOOD UREA NITROGEN 26 MG/DL (7-18); BUN/CREATININE RATIO 15.8 (10.0-20.0); CALCIUM 8.3 MG/DL (8.5-10.1); CHLORIDE 110 MMOL/L (99-107); CREATININE 1.65 MG/DL (0.40-0.90); GLUCOSE 180 MG/DL (70-104); POTASSIUM 3.9 MMOL/L (3.5-5.1); SODIUM 142 MMOL/L (135-145); TOTAL CARBON DIOXIDE 21.5 MMOL/L (24-32); eGFR 32 ML/MIN
[2023-02-08] MEDS: K and/or MAG REPLACEMENT MC SCH ×2 (08:00→19:31)
[2023-02-08] MEDS: aspirin 81mg tab.chew PO SCH (08:32)
[2023-02-08] MEDS: levetiracetam inj 500 MG in normal saline 100ml IV soln 100 ML IV SCH ×2 (08:32→19:31)
[2023-02-08] MEDS: atorvastatin 20mg tablet PO SCH (08:32)
[2023-02-08] MEDS: pantoprazole 40MG/NS 100ML BAG 100 ML IV SCH ×2 (08:34→19:49)
[2023-02-08] MEDS: lactose-reduced food (Ensure Enlive) - 237ml bottle PO SCH ×4 (08:34→19:23)
[2023-02-08] MEDS: dextrose 5%-1/4 normal saline 1,000 ML IV SCH (08:53)
[2023-02-08 10:04] VITALS: BP 158/60
[2023-02-08 16:00] VITALS: BP 133/82
[2023-02-08 18:00] VITALS: BP 116/68
[2023-02-08] MEDS ORDERED: normal saline 1000ml 1,000 ML IV SCH (18:20)
[2023-02-08 20:00] VITALS: BP 152/65
[2023-02-08] MEDS: insulin glargine (Lantus) pen - multi-dose SQ SCH (21:00)
[2023-02-08 22:00] VITALS: BP 161/59
[2023-02-09 04:26] LABS: BASOPHILS # (AUTO) 0.1 X10'3 (0-0.2); BASOPHILS % (AUTO) 1.2 % (0-1); EOSINOPHILS # (AUTO) 0.4 X10'3 (0-0.9); EOSINOPHILS % (AUTO) 4.3 % (0-6); HEMOGLOBIN 7.8 g/dl (12.0-16.0); LYMPHOCYTES # (AUTO) 2.4 X10'3 (1.1-4.8); MEAN CORPUSCULAR HEMOGLOBIN 27.3 PG (27.0-31.0); MEAN CORPUSCULAR HGB CONC 32.3 g/dL (33.0-36.5); MEAN CORPUSCULAR VOLUME 84.4 FL (78-98); MEAN PLATELET VOLUME 8.9 FL (7.4-10.4); MONOCYTES # (AUTO) 0.7 X10'3 (0-0.9); NEUTROPHILS # (AUTO) 4.9 X10'3 (1.8-7.7); NEUTROPHILS % (AUTO) 58.5 % (42-75); PLATELET COUNT 181 X10'3 (140-440); RED BLOOD COUNT 2.85 X10'6 (4.20-5.60); RED CELL DISTRIBUTION WIDTH 15.5 % (11.5-14.5); WHITE BLOOD COUNT 8.4 X10'3 (4.5-11.0)
[2023-02-09 04:53] LABS: ALANINE AMINOTRANSFERASE 9 U/L (12-78); ALBUMIN 1.9 G/DL (3.4-5.0); ALBUMIN/GLOBULIN RATIO 0.7 (1.1-1.5); ALKALINE PHOSPHATASE 43 IU/L (46-116); ANION GAP 13 (8-16); ASPARTATE AMINO TRANSFERASE 8 U/L (10-37); BILIRUBIN,TOTAL 0.1 MG/DL (0.1-1.0); BLOOD UREA NITROGEN 26 MG/DL (7-18); BUN/CREATININE RATIO 16.5 (10.0-20.0); CALCIUM 8.4 MG/DL (8.5-10.1); CHLORIDE 113 MMOL/L (99-107); CREATININE 1.58 MG/DL (0.40-0.90); GLUCOSE 138 MG/DL (70-104); SODIUM 146 MMOL/L (135-145); TOTAL CARBON DIOXIDE 20.3 MMOL/L (24-32); TOTAL PROTEIN 4.8 G/DL (6.4-8.2); eGFR 33 ML/MIN
[2023-02-09 06:00] VITALS: BP 189/71
[2023-02-09] MEDS: atorvastatin 20mg tablet PO SCH (07:33)
[2023-02-09] MEDS: aspirin 81mg tab.chew PO SCH (07:33)
[2023-02-09] MEDS: pantoprazole 40MG/NS 100ML BAG 100 ML IV SCH (07:38)
[2023-02-09] MEDS: K and/or MAG REPLACEMENT MC SCH ×2 (08:00→20:00)
[2023-02-09] MEDS: levetiracetam inj 500 MG in normal saline 100ml IV soln 100 ML IV SCH ×2 (08:27→19:21)
[2023-02-09 09:00] VITALS: BP 150/80
[2023-02-09] MEDS: dextrose 5%-water 1,000 ML IV SCH (09:10)
[2023-02-09 10:00] VITALS: BP 165/55
[2023-02-09] MEDS: morphine 2 MG/ML inj. syringe IV PRN (11:47)
[2023-02-09] MEDS: lactose-reduced food (Ensure Enlive) - 237ml bottle PO SCH ×2 (12:55→18:02)
[2023-02-09 18:00] VITALS: BP 184/60
[2023-02-09] MEDS: pantoprazole 40mg Tablet.DR PO SCH (19:21)
[2023-02-09] MEDS: insulin Lispro (HumaLOG) vial - multi-dose SQ SCH (19:43)
[2023-02-09] MEDS: insulin glargine (Lantus) pen - multi-dose SQ SCH (21:21)
[2023-02-09 22:00] VITALS: BP 126/73
[2023-02-10 04:33] LABS: BASOPHILS # (AUTO) 0.1 X10'3 (0-0.2); EOSINOPHILS # (AUTO) 0.4 X10'3 (0-0.9); EOSINOPHILS % (AUTO) 4.3 % (0-6); HEMATOCRIT 24.6 % (35.0-45.0); LYMPHOCYTES # (AUTO) 2.7 X10'3 (1.1-4.8); LYMPHOCYTES % (AUTO) 27.7 % (21-51); MEAN CORPUSCULAR HEMOGLOBIN 27.5 PG (27.0-31.0); MEAN CORPUSCULAR HGB CONC 32.5 g/dL (33.0-36.5); MEAN CORPUSCULAR VOLUME 84.6 FL (78-98); MEAN PLATELET VOLUME 9.1 FL (7.4-10.4); MONOCYTES # (AUTO) 0.7 X10'3 (0-0.9); MONOCYTES % (AUTO) 6.9 % (2-12); NEUTROPHILS # (AUTO) 5.9 X10'3 (1.8-7.7); NEUTROPHILS % (AUTO) 60.1 % (42-75); PLATELET COUNT 174 X10'3 (140-440); RED CELL DISTRIBUTION WIDTH 15.5 % (11.5-14.5); WHITE BLOOD COUNT 9.8 X10'3 (4.5-11.0)
[2023-02-10] MEDS: dextrose 5%-water 1,000 ML IV SCH (04:52)
[2023-02-10 04:59] LABS: ALANINE AMINOTRANSFERASE 13 U/L (12-78); ALBUMIN/GLOBULIN RATIO 0.7 (1.1-1.5); ALKALINE PHOSPHATASE 44 IU/L (46-116); ANION GAP 12 (8-16); ASPARTATE AMINO TRANSFERASE 13 U/L (10-37); BILIRUBIN,TOTAL 0.2 MG/DL (0.1-1.0); BLOOD UREA NITROGEN 33 MG/DL (7-18); BUN/CREATININE RATIO 20.5 (10.0-20.0); CALCIUM 8.4 MG/DL (8.5-10.1); CHLORIDE 111 MMOL/L (99-107); CREATININE 1.61 MG/DL (0.40-0.90); GLUCOSE 164 MG/DL (70-104); POTASSIUM 4.2 MMOL/L (3.5-5.1); SODIUM 145 MMOL/L (135-145); TOTAL CARBON DIOXIDE 21.8 MMOL/L (24-32); eGFR 32 ML/MIN
[2023-02-10 06:00] VITALS: BP 151/59
[2023-02-10] MEDS: K and/or MAG REPLACEMENT MC SCH ×2 (08:00→20:00)
[2023-02-10] MEDS: lactose-reduced food (Ensure Enlive) - 237ml bottle PO SCH ×3 (08:27→18:11)
[2023-02-10] MEDS: morphine 2 MG/ML inj. syringe IV PRN (08:34)
[2023-02-10] MEDS: levetiracetam inj 500 MG in normal saline 100ml IV soln 100 ML IV SCH ×2 (08:35→19:07)
[2023-02-10] MEDS: pantoprazole 40mg Tablet.DR PO SCH ×2 (08:37→19:06)
[2023-02-10] MEDS: atorvastatin 20mg tablet PO SCH (08:37)
[2023-02-10] MEDS: aspirin 81mg tab.chew PO SCH (08:37)
[2023-02-10] MEDS: insulin Lispro (HumaLOG) vial - multi-dose SQ SCH ×2 (08:39→19:02)
[2023-02-10 10:00] VITALS: BP 140/60
[2023-02-10 18:00] VITALS: BP 156/65
[2023-02-10] MEDS: insulin glargine (Lantus) pen - multi-dose SQ SCH (20:50)
[2023-02-10 22:00] VITALS: BP 130/72
[2023-02-11] MEDS: dextrose 5%-water 1,000 ML IV SCH ×2 (01:41→20:45)
[2023-02-11 06:00] VITALS: BP 143/68
[2023-02-11 06:59] LABS: BASOPHILS # (AUTO) 0.1 X10'3 (0-0.2); BASOPHILS % (AUTO) 1.2 % (0-1); EOSINOPHILS # (AUTO) 0.4 X10'3 (0-0.9); EOSINOPHILS % (AUTO) 4.3 % (0-6); HEMOGLOBIN 7.5 g/dl (12.0-16.0); LYMPHOCYTES # (AUTO) 2.8 X10'3 (1.1-4.8); LYMPHOCYTES % (AUTO) 27.7 % (21-51); MEAN CORPUSCULAR HEMOGLOBIN 27.5 PG (27.0-31.0); MEAN CORPUSCULAR HGB CONC 32.5 g/dL (33.0-36.5); MEAN CORPUSCULAR VOLUME 84.6 FL (78-98); MEAN PLATELET VOLUME 9.2 FL (7.4-10.4); MONOCYTES # (AUTO) 0.9 X10'3 (0-0.9); MONOCYTES % (AUTO) 8.8 % (2-12); NEUTROPHILS # (AUTO) 5.8 X10'3 (1.8-7.7); PLATELET COUNT 166 X10'3 (140-440); RED BLOOD COUNT 2.72 X10'6 (4.20-5.60); RED CELL DISTRIBUTION WIDTH 15.6 % (11.5-14.5)
[2023-02-11 07:05] LABS: ALANINE AMINOTRANSFERASE 11 U/L (12-78); ALBUMIN 1.9 G/DL (3.4-5.0); ALBUMIN/GLOBULIN RATIO 0.7 (1.1-1.5); ALKALINE PHOSPHATASE 38 IU/L (46-116); ANION GAP 6 (8-16); ASPARTATE AMINO TRANSFERASE 9 U/L (10-37); BILIRUBIN,TOTAL 0.2 MG/DL (0.1-1.0); BLOOD UREA NITROGEN 42 MG/DL (7-18); BUN/CREATININE RATIO 25.5 (10.0-20.0); CALCIUM 8.7 MG/DL (8.5-10.1); CHLORIDE 110 MMOL/L (99-107); CREATININE 1.65 MG/DL (0.40-0.90); GLUCOSE 127 MG/DL (70-104); POTASSIUM 4.2 MMOL/L (3.5-5.1); SODIUM 141 MMOL/L (135-145); TOTAL CARBON DIOXIDE 24.8 MMOL/L (24-32); TOTAL PROTEIN 4.8 G/DL (6.4-8.2); eGFR 32 ML/MIN
[2023-02-11] MEDS: levetiracetam inj 500 MG in normal saline 100ml IV soln 100 ML IV SCH ×2 (07:35→19:22)
[2023-02-11] MEDS: atorvastatin 20mg tablet PO SCH (07:35)
[2023-02-11] MEDS: pantoprazole 40mg Tablet.DR PO SCH ×2 (07:35→19:22)
[2023-02-11] MEDS: aspirin 81mg tab.chew PO SCH (07:35)
[2023-02-11] MEDS: lactose-reduced food (Ensure Enlive) - 237ml bottle PO SCH ×3 (07:36→18:07)
[2023-02-11] MEDS: K and/or MAG REPLACEMENT MC SCH ×2 (08:00→19:30)
[2023-02-11] MEDS: insulin Lispro (HumaLOG) vial - multi-dose SQ SCH ×3 (08:52→19:19)
[2023-02-11 10:00] VITALS: BP 102/78
[2023-02-11 18:00] VITALS: BP 127/71
[2023-02-11] MEDS: insulin glargine (Lantus) pen - multi-dose SQ SCH (21:46)
[2023-02-11 22:00] VITALS: BP 131/60
[2023-02-12 06:00] VITALS: BP 138/60
[2023-02-12] MEDS: K and/or MAG REPLACEMENT MC SCH ×2 (06:54→20:00)
[2023-02-12] MEDS: aspirin 81mg tab.chew PO SCH (08:27)
[2023-02-12] MEDS: pantoprazole 40mg Tablet.DR PO SCH ×2 (08:27→20:55)
[2023-02-12] MEDS: levetiracetam inj 500 MG in normal saline 100ml IV soln 100 ML IV SCH ×2 (08:27→20:55)
[2023-02-12] MEDS: atorvastatin 20mg tablet PO SCH (08:28)
[2023-02-12] MEDS: lactose-reduced food (Ensure Enlive) - 237ml bottle PO SCH ×3 (08:31→18:04)
[2023-02-12] MEDS: insulin Lispro (HumaLOG) vial - multi-dose SQ SCH ×3 (09:33→19:34)
[2023-02-12 10:00] VITALS: BP 115/55
[2023-02-12 18:00] VITALS: BP 133/63
[2023-02-12] MEDS: morphine 2 MG/ML inj. syringe IV PRN (20:55)
[2023-02-12] MEDS: insulin glargine (Lantus) pen - multi-dose SQ SCH (21:05)
[2023-02-12] MEDS: dextrose 5%-water 1,000 ML IV SCH (21:12)
[2023-02-12 22:00] VITALS: BP 139/65
[2023-02-13] MEDS: morphine 2 MG/ML inj. syringe IV PRN (03:05)
[2023-02-13 06:00] VITALS: BP 153/96
[2023-02-13] MEDS: lactose-reduced food (Ensure Enlive) - 237ml bottle PO SCH ×3 (07:52→18:00)
[2023-02-13] MEDS: K and/or MAG REPLACEMENT MC SCH ×2 (07:55→20:00)
[2023-02-13] MEDS: atorvastatin 20mg tablet PO SCH (07:55)
[2023-02-13] MEDS: aspirin 81mg tab.chew PO SCH (07:55)
[2023-02-13] MEDS: pantoprazole 40mg Tablet.DR PO SCH ×2 (07:55→19:39)
[2023-02-13] MEDS: levetiracetam inj 500 MG in normal saline 100ml IV soln 100 ML IV SCH ×2 (07:55→20:27)
[2023-02-13] MEDS: insulin Lispro (HumaLOG) vial - multi-dose SQ SCH ×3 (08:50→19:41)
[2023-02-13 09:45] VITALS: BP 161/56
[2023-02-13 18:00] VITALS: BP 131/42
[2023-02-13] MEDS: dextrose 5%-water 1,000 ML IV SCH (20:34)
[2023-02-13] MEDS: acetaminophen 325mg tablet PO PRN (20:37)
[2023-02-13] MEDS: insulin glargine (Lantus) pen - multi-dose SQ SCH (22:43)
[2023-02-13 23:32] VITALS: BP 133/43
[2023-02-14] MEDS: acetaminophen 325mg tablet PO PRN (06:24)
[2023-02-14 06:30] VITALS: BP 125/54
[2023-02-14] MEDS: K and/or MAG REPLACEMENT MC SCH ×2 (08:00→19:35)
[2023-02-14] MEDS: pantoprazole 40mg Tablet.DR PO SCH ×2 (08:26→19:38)
[2023-02-14] MEDS: aspirin 81mg tab.chew PO SCH (08:26)
[2023-02-14] MEDS: atorvastatin 20mg tablet PO SCH (08:26)
[2023-02-14] MEDS: lactose-reduced food (Ensure Enlive) - 237ml bottle PO SCH ×3 (08:27→18:24)
[2023-02-14] MEDS: levetiracetam inj 500 MG in normal saline 100ml IV soln 100 ML IV SCH ×2 (08:27→19:38)
[2023-02-14] MEDS: dextrose 5%-water 1,000 ML IV SCH ×2 (08:38→22:02)
[2023-02-14 10:21] VITALS: BP 154/59
[2023-02-14 18:00] VITALS: BP 118/77
[2023-02-14] MEDS: insulin Lispro (HumaLOG) vial - multi-dose SQ SCH (19:40)
[2023-02-14] MEDS: insulin glargine (Lantus) pen - multi-dose SQ SCH (21:00)
[2023-02-14 22:00] VITALS: BP 111/45
[2023-02-15] MEDS: acetaminophen 325mg tablet PO PRN (02:27)
[2023-02-15 06:00] VITALS: BP 129/45
[2023-02-15 06:57] LABS: BASOPHILS # (AUTO) 0.1 X10'3 (0-0.2); BASOPHILS % (AUTO) 0.9 % (0-1); EOSINOPHILS # (AUTO) 0.4 X10'3 (0-0.9); EOSINOPHILS % (AUTO) 3.9 % (0-6); LYMPHOCYTES # (AUTO) 2.2 X10'3 (1.1-4.8); LYMPHOCYTES % (AUTO) 23.1 % (21-51); MEAN CORPUSCULAR HGB CONC 33.3 g/dL (33.0-36.5); MEAN CORPUSCULAR VOLUME 84.2 FL (78-98); MEAN PLATELET VOLUME 9.9 FL (7.4-10.4); MONOCYTES % (AUTO) 9.9 % (2-12); NEUTROPHILS % (AUTO) 62.2 % (42-75); PLATELET COUNT 157 X10'3 (140-440); RED BLOOD COUNT 2.49 X10'6 (4.20-5.60); RED CELL DISTRIBUTION WIDTH 14.8 % (11.5-14.5); WHITE BLOOD COUNT 9.7 X10'3 (4.5-11.0)
[2023-02-15 07:09] LABS: HEMATOCRIT 20.9 % (35.0-45.0)
[2023-02-15 07:29] LABS: ALBUMIN 1.9 G/DL (3.4-5.0); ALBUMIN/GLOBULIN RATIO 0.6 (1.1-1.5); ALKALINE PHOSPHATASE 38 IU/L (46-116); ANION GAP 7 (8-16); ASPARTATE AMINO TRANSFERASE 13 U/L (10-37); BILIRUBIN,TOTAL 0.2 MG/DL (0.1-1.0); BLOOD UREA NITROGEN 53 MG/DL (7-18); BUN/CREATININE RATIO 28.8 (10.0-20.0); CALCIUM 8.5 MG/DL (8.5-10.1); CHLORIDE 107 MMOL/L (99-107); CREATININE 1.84 MG/DL (0.40-0.90); GLUCOSE 129 MG/DL (70-104); POTASSIUM 4.1 MMOL/L (3.5-5.1); SODIUM 140 MMOL/L (135-145); TOTAL CARBON DIOXIDE 25.8 MMOL/L (24-32); eGFR 28 ML/MIN
[2023-02-15] MEDS: aspirin 81mg tab.chew PO SCH (07:44)
[2023-02-15] MEDS: atorvastatin 20mg tablet PO SCH (07:44)
[2023-02-15] MEDS: levetiracetam inj 500 MG in normal saline 100ml IV soln 100 ML IV SCH ×2 (07:44→21:43)
[2023-02-15] MEDS: pantoprazole 40mg Tablet.DR PO SCH ×2 (07:44→21:44)
[2023-02-15] MEDS: lactose-reduced food (Ensure Enlive) - 237ml bottle PO SCH ×3 (08:00→18:20)
[2023-02-15] MEDS: K and/or MAG REPLACEMENT MC SCH ×2 (08:00→20:00)
[2023-02-15 09:37] LABS: ALANINE AMINOTRANSFERASE 17 U/L (12-78)
[2023-02-15 10:27] VITALS: BP 139/57
[2023-02-15 18:00] VITALS: BP 159/69
[2023-02-15] MEDS: dextrose 5%-water 1,000 ML IV SCH (21:43)
[2023-02-15 22:00] VITALS: BP 152/71
[2023-02-15] MEDS: insulin glargine (Lantus) pen - multi-dose SQ SCH (22:00)
[2023-02-15] MEDS: morphine 2 MG/ML inj. syringe IV PRN (23:04)
[2023-02-16] MEDS: morphine 2 MG/ML inj. syringe IV PRN (05:38)
[2023-02-16 06:00] VITALS: BP 134/45
[2023-02-16] MEDS: lactose-reduced food (Ensure Enlive) - 237ml bottle PO SCH ×3 (08:00→18:00)
[2023-02-16] MEDS: K and/or MAG REPLACEMENT MC SCH ×2 (08:00→20:00)
[2023-02-16 08:17] LABS: HEMATOCRIT 23.2 % (35.0-45.0); HEMOGLOBIN 7.6 g/dl (12.0-16.0); MEAN CORPUSCULAR HEMOGLOBIN 27.5 PG (27.0-31.0); MEAN CORPUSCULAR HGB CONC 32.7 g/dL (33.0-36.5); MEAN CORPUSCULAR VOLUME 84.2 FL (78-98); MEAN PLATELET VOLUME 9.1 FL (7.4-10.4); PLATELET COUNT 187 X10'3 (140-440); RED BLOOD COUNT 2.76 X10'6 (4.20-5.60); RED CELL DISTRIBUTION WIDTH 15.3 % (11.5-14.5); WHITE BLOOD COUNT 8.8 X10'3 (4.5-11.0)
[2023-02-16] MEDS: atorvastatin 20mg tablet PO SCH (09:47)
[2023-02-16] MEDS: levetiracetam inj 500 MG in normal saline 100ml IV soln 100 ML IV SCH ×2 (09:47→19:18)
[2023-02-16] MEDS: pantoprazole 40mg Tablet.DR PO SCH ×2 (09:48→19:06)
[2023-02-16] MEDS: acetaminophen 325mg tablet PO PRN (09:48)
[2023-02-16] MEDS: aspirin 81mg tab.chew PO SCH (09:48)
[2023-02-16 10:00] VITALS: BP 180/70
[2023-02-16] MEDS: ferrous sulfate 325mg tablet PO SCH (14:26)
[2023-02-16 18:00] VITALS: BP 184/57
[2023-02-16] MEDS: hydrALAZINE 20mg/ml inj. IV PRN (19:06)
[2023-02-16] MEDS: insulin glargine (Lantus) pen - multi-dose SQ SCH (21:00)
[2023-02-16 22:00] VITALS: BP_SYST 115; BP_SYST 177; BP_DIAS 144; BP_DIAS 50
[2023-02-16 22:30] VITALS: BP_SYST 114; BP_SYST 175; BP_DIAS 65; BP_DIAS 77
[2023-02-17 06:00] VITALS: BP 147/81
[2023-02-17 06:24] LABS: BASOPHILS # (AUTO) 0.1 X10'3 (0-0.2); BASOPHILS % (AUTO) 0.6 % (0-1); EOSINOPHILS # (AUTO) 0.4 X10'3 (0-0.9); EOSINOPHILS % (AUTO) 3.6 % (0-6); HEMATOCRIT 23.6 % (35.0-45.0); HEMOGLOBIN 7.7 g/dl (12.0-16.0); LYMPHOCYTES # (AUTO) 1.9 X10'3 (1.1-4.8); LYMPHOCYTES % (AUTO) 16.9 % (21-51); MEAN CORPUSCULAR HEMOGLOBIN 27.5 PG (27.0-31.0); MEAN CORPUSCULAR HGB CONC 32.6 g/dL (33.0-36.5); MEAN CORPUSCULAR VOLUME 84.4 FL (78-98); MEAN PLATELET VOLUME 9.8 FL (7.4-10.4); MONOCYTES # (AUTO) 0.7 X10'3 (0-0.9); MONOCYTES % (AUTO) 6.1 % (2-12); NEUTROPHILS # (AUTO) 8.3 X10'3 (1.8-7.7); NEUTROPHILS % (AUTO) 72.8 % (42-75); PLATELET COUNT 208 X10'3 (140-440); WHITE BLOOD COUNT 11.5 X10'3 (4.5-11.0)
[2023-02-17] MEDS: lactose-reduced food (Ensure Enlive) - 237ml bottle PO SCH ×3 (08:00→18:03)
[2023-02-17] MEDS: K and/or MAG REPLACEMENT MC SCH ×2 (08:00→19:32)
[2023-02-17 09:01] LABS: ALANINE AMINOTRANSFERASE 16 U/L (12-78); ALBUMIN 2.3 G/DL (3.4-5.0); ALBUMIN/GLOBULIN RATIO 0.7 (1.1-1.5); ALKALINE PHOSPHATASE 46 IU/L (46-116); ANION GAP 10 (8-16); ASPARTATE AMINO TRANSFERASE 13 U/L (10-37); BILIRUBIN,TOTAL 0.2 MG/DL (0.1-1.0); BLOOD UREA NITROGEN 56 MG/DL (7-18); BUN/CREATININE RATIO 30.4 (10.0-20.0); CALCIUM 8.6 MG/DL (8.5-10.1); CHLORIDE 107 MMOL/L (99-107); CREATININE 1.84 MG/DL (0.40-0.90); GLUCOSE 137 MG/DL (70-104); POTASSIUM 4.3 MMOL/L (3.5-5.1); SODIUM 143 MMOL/L (135-145); TOTAL CARBON DIOXIDE 26.3 MMOL/L (24-32); TOTAL PROTEIN 5.6 G/DL (6.4-8.2); eGFR 28 ML/MIN
[2023-02-17] MEDS: aspirin 81mg tab.chew PO SCH (09:18)
[2023-02-17] MEDS: levetiracetam inj 500 MG in normal saline 100ml IV soln 100 ML IV SCH ×2 (09:18→19:34)
[2023-02-17] MEDS: atorvastatin 20mg tablet PO SCH (09:19)
[2023-02-17] MEDS: ferrous sulfate 325mg tablet PO SCH (09:19)
[2023-02-17] MEDS: pantoprazole 40mg Tablet.DR PO SCH ×2 (09:19→19:31)
[2023-02-17 10:00] VITALS: BP 174/71
[2023-02-17] MEDS: normal saline 1000ml 1,000 ML IV SCH (10:10)
[2023-02-17 11:00] VITALS: BP 157/65
[2023-02-17 18:00] VITALS: BP 181/75
[2023-02-17 19:15] VITALS: BP 159/60
[2023-02-17 22:00] VITALS: BP 158/61
[2023-02-17] MEDS: insulin glargine (Lantus) pen - multi-dose SQ SCH (22:00)
[2023-02-18] MEDS: normal saline 1000ml 1,000 ML IV SCH (05:40)
[2023-02-18 06:00] VITALS: BP 147/65
[2023-02-18 06:10] LABS: BASOPHILS # (AUTO) 0.1 X10'3 (0-0.2); BASOPHILS % (AUTO) 0.9 % (0-1); EOSINOPHILS # (AUTO) 0.5 X10'3 (0-0.9); EOSINOPHILS % (AUTO) 5.1 % (0-6); HEMATOCRIT 22.7 % (35.0-45.0); HEMOGLOBIN 7.5 g/dl (12.0-16.0); LYMPHOCYTES # (AUTO) 2.2 X10'3 (1.1-4.8); LYMPHOCYTES % (AUTO) 22.1 % (21-51); MEAN CORPUSCULAR HEMOGLOBIN 27.7 PG (27.0-31.0); MEAN CORPUSCULAR HGB CONC 32.9 g/dL (33.0-36.5); MEAN CORPUSCULAR VOLUME 84.2 FL (78-98); MEAN PLATELET VOLUME 9.3 FL (7.4-10.4); MONOCYTES # (AUTO) 0.7 X10'3 (0-0.9); MONOCYTES % (AUTO) 6.8 % (2-12); NEUTROPHILS # (AUTO) 6.6 X10'3 (1.8-7.7); NEUTROPHILS % (AUTO) 65.1 % (42-75); PLATELET COUNT 196 X10'3 (140-440); RED BLOOD COUNT 2.69 X10'6 (4.20-5.60); RED CELL DISTRIBUTION WIDTH 14.8 % (11.5-14.5); WHITE BLOOD COUNT 10.1 X10'3 (4.5-11.0)
[2023-02-18 06:24] LABS: ALANINE AMINOTRANSFERASE 18 U/L (12-78); ALBUMIN 2.2 G/DL (3.4-5.0); ALBUMIN/GLOBULIN RATIO 0.7 (1.1-1.5); ALKALINE PHOSPHATASE 47 IU/L (46-116); ANION GAP 7 (8-16); ASPARTATE AMINO TRANSFERASE 15 U/L (10-37); BILIRUBIN,TOTAL 0.2 MG/DL (0.1-1.0); BLOOD UREA NITROGEN 58 MG/DL (7-18); BUN/CREATININE RATIO 31.9 (10.0-20.0); CALCIUM 8.6 MG/DL (8.5-10.1); CHLORIDE 107 MMOL/L (99-107); CREATININE 1.82 MG/DL (0.40-0.90); GLUCOSE 142 MG/DL (70-104); POTASSIUM 4.8 MMOL/L (3.5-5.1); SODIUM 141 MMOL/L (135-145); TOTAL CARBON DIOXIDE 27.1 MMOL/L (24-32); TOTAL PROTEIN 5.4 G/DL (6.4-8.2); eGFR 28 ML/MIN
[2023-02-18] MEDS: levetiracetam inj 500 MG in normal saline 100ml IV soln 100 ML IV SCH (07:47)
[2023-02-18] MEDS: K and/or MAG REPLACEMENT MC SCH ×2 (08:00→20:00)
[2023-02-18] MEDS: lactose-reduced food (Ensure Enlive) - 237ml bottle PO SCH ×3 (08:12→18:07)
[2023-02-18] MEDS: atorvastatin 20mg tablet PO SCH (08:17)
[2023-02-18] MEDS: ferrous sulfate 325mg tablet PO SCH (08:17)
[2023-02-18] MEDS: pantoprazole 40mg Tablet.DR PO SCH ×2 (08:17→20:20)
[2023-02-18] MEDS: aspirin 81mg tab.chew PO SCH (08:17)
[2023-02-18 10:00] VITALS: BP 130/41
[2023-02-18] MEDS ORDERED: LORazepam 2 mg/ml vial IV PRN (10:45)
[2023-02-18 18:00] VITALS: BP 125/48
[2023-02-18] MEDS: LEVETIRACETAM IV SCH (20:21)
[2023-02-18] MEDS: NORMAL SALINE IV SCH (20:21)
[2023-02-18] MEDS: insulin glargine (Lantus) pen - multi-dose SQ SCH (21:00)
[2023-02-18 22:00] VITALS: BP 149/66
[2023-02-19] VITALS (9 sets, daily range): BP systolic 135–153; BP diastolic 51–96
[2023-02-19] MEDS: normal saline 1000ml 1,000 ML IV SCH (01:40)
[2023-02-19 06:40] LABS: BASOPHILS # (AUTO) 0.1 X10'3 (0-0.2); EOSINOPHILS # (AUTO) 0.6 X10'3 (0-0.9); EOSINOPHILS % (AUTO) 5.8 % (0-6); HEMATOCRIT 23.3 % (35.0-45.0); HEMOGLOBIN 7.6 g/dl (12.0-16.0); LYMPHOCYTES # (AUTO) 2.3 X10'3 (1.1-4.8); LYMPHOCYTES % (AUTO) 22.1 % (21-51); MEAN CORPUSCULAR HEMOGLOBIN 27.7 PG (27.0-31.0); MEAN CORPUSCULAR HGB CONC 32.7 g/dL (33.0-36.5); MEAN CORPUSCULAR VOLUME 84.7 FL (78-98); MEAN PLATELET VOLUME 9.5 FL (7.4-10.4); MONOCYTES # (AUTO) 0.6 X10'3 (0-0.9); MONOCYTES % (AUTO) 6.1 % (2-12); NEUTROPHILS # (AUTO) 6.6 X10'3 (1.8-7.7); PLATELET COUNT 233 X10'3 (140-440); RED BLOOD COUNT 2.75 X10'6 (4.20-5.60); WHITE BLOOD COUNT 10.2 X10'3 (4.5-11.0)
[2023-02-19 07:00] LABS: ALANINE AMINOTRANSFERASE 17 U/L (12-78); ALBUMIN 2.2 G/DL (3.4-5.0); ALBUMIN/GLOBULIN RATIO 0.7 (1.1-1.5); ALKALINE PHOSPHATASE 45 IU/L (46-116); ANION GAP 10 (8-16); ASPARTATE AMINO TRANSFERASE 13 U/L (10-37); BILIRUBIN,TOTAL 0.2 MG/DL (0.1-1.0); BLOOD UREA NITROGEN 57 MG/DL (7-18); BUN/CREATININE RATIO 32.2 (10.0-20.0); CALCIUM 8.7 MG/DL (8.5-10.1); CHLORIDE 108 MMOL/L (99-107); CREATININE 1.77 MG/DL (0.40-0.90); GLUCOSE 139 MG/DL (70-104); POTASSIUM 4.8 MMOL/L (3.5-5.1); SODIUM 144 MMOL/L (135-145); TOTAL CARBON DIOXIDE 26.5 MMOL/L (24-32); TOTAL PROTEIN 5.5 G/DL (6.4-8.2); eGFR 29 ML/MIN
[2023-02-19] MEDS: LEVETIRACETAM IV SCH (08:00)
[2023-02-19] MEDS: K and/or MAG REPLACEMENT MC SCH ×2 (08:00→20:00)
[2023-02-19] MEDS: NORMAL SALINE IV SCH (08:00)
[2023-02-19] MEDS: lactose-reduced food (Ensure Enlive) - 237ml bottle PO SCH ×3 (08:00→18:12)
[2023-02-19] MEDS: ferrous sulfate 325mg tablet PO SCH (09:05)
[2023-02-19] MEDS: aspirin 81mg tab.chew PO SCH (09:05)
[2023-02-19] MEDS: atorvastatin 20mg tablet PO SCH (09:05)
[2023-02-19] MEDS: pantoprazole 40mg Tablet.DR PO SCH ×2 (09:06→20:41)
[2023-02-19] MEDS: levetiracetam 250mg tablet PO SCH ×2 (14:14→20:41)
[2023-02-19] MEDS: insulin glargine (Lantus) pen - multi-dose SQ SCH (20:44)
[2023-02-20 00:45] VITALS: BP 135/62
[2023-02-20 06:00] VITALS: BP 167/70
[2023-02-20 06:15] LABS: BASOPHILS # (AUTO) 0.1 X10'3 (0-0.2); BASOPHILS % (AUTO) 1.2 % (0-1); EOSINOPHILS # (AUTO) 0.6 X10'3 (0-0.9); EOSINOPHILS % (AUTO) 5.9 % (0-6); HEMOGLOBIN 7.3 g/dl (12.0-16.0); LYMPHOCYTES # (AUTO) 2.4 X10'3 (1.1-4.8); LYMPHOCYTES % (AUTO) 25.1 % (21-51); MEAN CORPUSCULAR HEMOGLOBIN 27.8 PG (27.0-31.0); MEAN CORPUSCULAR VOLUME 84.3 FL (78-98); MEAN PLATELET VOLUME 9.2 FL (7.4-10.4); MONOCYTES # (AUTO) 0.7 X10'3 (0-0.9); MONOCYTES % (AUTO) 7.4 % (2-12); NEUTROPHILS # (AUTO) 5.8 X10'3 (1.8-7.7); NEUTROPHILS % (AUTO) 60.4 % (42-75); PLATELET COUNT 211 X10'3 (140-440); RED BLOOD COUNT 2.61 X10'6 (4.20-5.60); RED CELL DISTRIBUTION WIDTH 14.5 % (11.5-14.5); WHITE BLOOD COUNT 9.5 X10'3 (4.5-11.0)
[2023-02-20 06:39] LABS: ALANINE AMINOTRANSFERASE 16 U/L (12-78); ALBUMIN 2.2 G/DL (3.4-5.0); ALBUMIN/GLOBULIN RATIO 0.7 (1.1-1.5); ANION GAP 8 (8-16); ASPARTATE AMINO TRANSFERASE 18 U/L (10-37); BILIRUBIN,TOTAL 0.2 MG/DL (0.1-1.0); BLOOD UREA NITROGEN 51 MG/DL (7-18); BUN/CREATININE RATIO 28.8 (10.0-20.0); CALCIUM 8.9 MG/DL (8.5-10.1); CHLORIDE 107 MMOL/L (99-107); CREATININE 1.77 MG/DL (0.40-0.90); GLUCOSE 127 MG/DL (70-104); POTASSIUM 4.8 MMOL/L (3.5-5.1); SODIUM 141 MMOL/L (135-145); TOTAL PROTEIN 5.2 G/DL (6.4-8.2); eGFR 29 ML/MIN
[2023-02-20 06:43] LABS: ALKALINE PHOSPHATASE 44 IU/L (46-116)
[2023-02-20] MEDS: K and/or MAG REPLACEMENT MC SCH ×2 (08:00→19:20)
[2023-02-20] MEDS: lactose-reduced food (Ensure Enlive) - 237ml bottle PO SCH ×3 (08:00→18:20)
[2023-02-20] MEDS: aspirin 81mg tab.chew PO SCH (09:07)
[2023-02-20] MEDS: atorvastatin 20mg tablet PO SCH (09:07)
[2023-02-20] MEDS: ferrous sulfate 325mg tablet PO SCH (09:07)
[2023-02-20] MEDS: pantoprazole 40mg Tablet.DR PO SCH ×2 (09:08→19:26)
[2023-02-20] MEDS: levetiracetam 250mg tablet PO SCH ×2 (09:08→19:26)
[2023-02-20 10:00] VITALS: BP_SYST 102; BP_SYST 162; BP_DIAS 63
[2023-02-20 17:46] VITALS: BP 158/68
[2023-02-20 18:00] VITALS: BP 158/68
[2023-02-20] MEDS: insulin glargine (Lantus) pen - multi-dose SQ SCH (21:00)
[2023-02-20 22:00] VITALS: BP 157/69
[2023-02-20] MEDS ORDERED: DEXTROSE 15 GM of carb/4 tabs (each vial/BOTTLE has 4 tablets) PO PRN ×2 (22:35)
[2023-02-20] MEDS ORDERED: glucagon, human recombinant 1mg kit SUBCUT PRN (22:35)
[2023-02-20] MEDS ORDERED: insulin Lispro (HumaLOG) vial - multi-dose SQ SCH (22:35)
[2023-02-20] MEDS ORDERED: MESSAGE TO PHARMACY PO ONE (22:35)
[2023-02-20] MEDS ORDERED: dextrose 50%-water 50ml dispensing syringe IV PRN ×2 (22:35)
[2023-02-21] MEDS: acetaminophen 325mg tablet PO PRN ×2 (05:59→23:26)
[2023-02-21 06:00] VITALS: BP 179/67
[2023-02-21 06:20] LABS: BASOPHILS # (AUTO) 0.1 X10'3 (0-0.2); BASOPHILS % (AUTO) 1.3 % (0-1); EOSINOPHILS # (AUTO) 0.5 X10'3 (0-0.9); EOSINOPHILS % (AUTO) 5.2 % (0-6); HEMATOCRIT 23.9 % (35.0-45.0); HEMOGLOBIN 7.7 g/dl (12.0-16.0); LYMPHOCYTES # (AUTO) 2.6 X10'3 (1.1-4.8); LYMPHOCYTES % (AUTO) 29.8 % (21-51); MEAN CORPUSCULAR HEMOGLOBIN 27.4 PG (27.0-31.0); MEAN CORPUSCULAR HGB CONC 32.2 g/dL (33.0-36.5); MEAN CORPUSCULAR VOLUME 85.2 FL (78-98); MEAN PLATELET VOLUME 9.1 FL (7.4-10.4); MONOCYTES # (AUTO) 0.6 X10'3 (0-0.9); MONOCYTES % (AUTO) 6.7 % (2-12); PLATELET COUNT 242 X10'3 (140-440); RED CELL DISTRIBUTION WIDTH 14.8 % (11.5-14.5); WHITE BLOOD COUNT 8.8 X10'3 (4.5-11.0)
[2023-02-21] MEDS: lisinopril 20mg tablet PO SCH (06:23)
[2023-02-21 06:44] LABS: ALANINE AMINOTRANSFERASE 17 U/L (12-78); ALBUMIN 2.3 G/DL (3.4-5.0); ALBUMIN/GLOBULIN RATIO 0.7 (1.1-1.5); ALKALINE PHOSPHATASE 45 IU/L (46-116); ANION GAP 8 (8-16); ASPARTATE AMINO TRANSFERASE 13 U/L (10-37); BILIRUBIN,TOTAL 0.2 MG/DL (0.1-1.0); BLOOD UREA NITROGEN 52 MG/DL (7-18); BUN/CREATININE RATIO 26.4 (10.0-20.0); CALCIUM 8.6 MG/DL (8.5-10.1); CHLORIDE 107 MMOL/L (99-107); CREATININE 1.97 MG/DL (0.40-0.90); GLUCOSE 138 MG/DL (70-104); POTASSIUM 4.9 MMOL/L (3.5-5.1); SODIUM 142 MMOL/L (135-145); TOTAL CARBON DIOXIDE 26.6 MMOL/L (24-32); TOTAL PROTEIN 5.4 G/DL (6.4-8.2); eGFR 26 ML/MIN
[2023-02-21] MEDS: K and/or MAG REPLACEMENT MC SCH ×2 (08:00→19:44)
[2023-02-21] MEDS: ferrous sulfate 325mg tablet PO SCH ×3 (08:01→21:45)
[2023-02-21] MEDS: levetiracetam 250mg tablet PO SCH ×2 (08:01→19:53)
[2023-02-21] MEDS: ascorbic acid 500mg tablet PO SCH ×3 (08:01→18:42)
[2023-02-21] MEDS: pantoprazole 40mg Tablet.DR PO SCH ×2 (08:01→19:53)
[2023-02-21] MEDS: aspirin 81mg tab.chew PO SCH (08:01)
[2023-02-21] MEDS: atorvastatin 20mg tablet PO SCH (08:01)
[2023-02-21] MEDS: lactose-reduced food (Ensure Enlive) - 237ml bottle PO SCH ×3 (08:08→18:27)
[2023-02-21 10:00] VITALS: BP 95/49
[2023-02-21] MEDS ORDERED: LORazepam 2 mg/ml vial IV ONE (12:40)
[2023-02-21 18:00] VITALS: BP 171/76
[2023-02-21] MEDS ORDERED: morphine 2 MG/ML inj. syringe IV PRN (18:30)
[2023-02-21] MEDS ORDERED: insulin glargine (Lantus) pen - multi-dose SQ SCH (21:00)
[2023-02-21 22:00] VITALS: BP 169/63
[2023-02-22 04:17] VITALS: BP 127/55
[2023-02-22 06:00] VITALS: BP 152/67
[2023-02-22] MEDS: K and/or MAG REPLACEMENT MC SCH ×2 (07:27→20:00)
[2023-02-22] MEDS: lactose-reduced food (Ensure Enlive) - 237ml bottle PO SCH ×2 (08:57→20:00)
[2023-02-22] MEDS: levetiracetam 250mg tablet PO SCH ×2 (09:20→20:18)
[2023-02-22] MEDS: pantoprazole 40mg Tablet.DR PO SCH (09:20)
[2023-02-22] MEDS: ferrous sulfate 325mg tablet PO SCH (09:20)
[2023-02-22] MEDS: ascorbic acid 500mg tablet PO SCH ×3 (09:20→18:03)
[2023-02-22] MEDS: aspirin 81mg tab.chew PO SCH (09:20)
[2023-02-22] MEDS: lisinopril 20mg tablet PO SCH (09:21)
[2023-02-22] MEDS: atorvastatin 20mg tablet PO SCH (09:21)
[2023-02-22] MEDS: acetaminophen 325mg tablet PO PRN (09:31)
[2023-02-22 18:00] VITALS: BP 169/70
[2023-02-22] MEDS ORDERED: ondansetron 4mg rapidly disintigrating tab PO PRN (18:20)
[2023-02-22 22:00] VITALS: BP 148/52
[2023-02-23] MEDS: normal saline 1000ml 1,000 ML IV SCH ×2 (02:28→20:01)
[2023-02-23 06:00] VITALS: BP 164/60
[2023-02-23] MEDS ORDERED: ferrous sulfate 300mg/5ml UD oral liquid PO SCH (08:00)
[2023-02-23] MEDS: lactose-reduced food (Ensure Enlive) - 237ml bottle PO SCH ×2 (08:00→20:00)
[2023-02-23] MEDS: K and/or MAG REPLACEMENT MC SCH ×2 (08:00→20:00)
[2023-02-23] MEDS: levetiracetam 250mg tablet PO SCH ×2 (09:23→19:58)
[2023-02-23] MEDS: atorvastatin 20mg tablet PO SCH (09:23)
[2023-02-23] MEDS: aspirin 81mg tab.chew PO SCH (09:23)
[2023-02-23] MEDS: ascorbic acid 500mg tablet PO SCH ×3 (09:23→19:59)
[2023-02-23] MEDS: ferrous sulfate 300mg/5ml UD oral liquid PO SCH ×2 (09:24→19:58)
[2023-02-23] MEDS: amLODIPine 5mg tablet PO SCH (09:29)
[2023-02-23 10:00] VITALS: BP 115/49
[2023-02-23] MEDS: lansoprazole 15mg solutab PO SCH (12:50)
[2023-02-23] MEDS: lisinopril 10 MG tablet PO SCH (12:59)
[2023-02-23 18:00] VITALS: BP 161/66
[2023-02-23 22:00] VITALS: BP 115/49
[2023-02-24 06:00] VITALS: BP 136/69
[2023-02-24] MEDS: K and/or MAG REPLACEMENT MC SCH ×2 (08:00→19:11)
[2023-02-24] MEDS: lactose-reduced food (Ensure Enlive) - 237ml bottle PO SCH ×2 (08:00→12:38)
[2023-02-24] MEDS: ferrous sulfate 300mg/5ml UD oral liquid PO SCH ×2 (08:57→19:00)
[2023-02-24] MEDS: levetiracetam 250mg tablet PO SCH ×2 (08:58→19:00)
[2023-02-24] MEDS: lansoprazole 15mg solutab PO SCH (08:59)
[2023-02-24] MEDS: ascorbic acid 500mg tablet PO SCH ×2 (08:59→18:20)
[2023-02-24] MEDS: amLODIPine 5mg tablet PO SCH (08:59)
[2023-02-24] MEDS: atorvastatin 20mg tablet PO SCH (08:59)
[2023-02-24] MEDS: aspirin 81mg tab.chew PO SCH (09:00)
[2023-02-24] MEDS: lisinopril 10 MG tablet PO SCH (09:00)
[2023-02-24 10:00] VITALS: BP 98/48
[2023-02-24] MEDS: normal saline 1000ml 1,000 ML IV SCH (18:20)
[2023-02-24 18:55] LABS: BASOPHILS # (AUTO) 0.1 X10'3 (0-0.2); BASOPHILS % (AUTO) 0.9 % (0-1); EOSINOPHILS # (AUTO) 0.3 X10'3 (0-0.9); EOSINOPHILS % (AUTO) 3.5 % (0-6); HEMATOCRIT 23.3 % (35.0-45.0); HEMOGLOBIN 7.6 g/dl (12.0-16.0); LYMPHOCYTES # (AUTO) 2.1 X10'3 (1.1-4.8); LYMPHOCYTES % (AUTO) 21.8 % (21-51); MEAN CORPUSCULAR HEMOGLOBIN 28.1 PG (27.0-31.0); MEAN CORPUSCULAR HGB CONC 32.9 g/dL (33.0-36.5); MEAN CORPUSCULAR VOLUME 85.5 FL (78-98); MEAN PLATELET VOLUME 8.9 FL (7.4-10.4); MONOCYTES # (AUTO) 0.7 X10'3 (0-0.9); MONOCYTES % (AUTO) 7.3 % (2-12); NEUTROPHILS # (AUTO) 6.5 X10'3 (1.8-7.7); NEUTROPHILS % (AUTO) 66.5 % (42-75); PLATELET COUNT 255 X10'3 (140-440); RED BLOOD COUNT 2.72 X10'6 (4.20-5.60); RED CELL DISTRIBUTION WIDTH 14.9 % (11.5-14.5); WHITE BLOOD COUNT 9.7 X10'3 (4.5-11.0)
[2023-02-24 19:06] LABS: ALBUMIN 2.6 G/DL (3.4-5.0); ANION GAP 11 (8-16); BLOOD UREA NITROGEN 59 MG/DL (7-18); BUN/CREATININE RATIO 31.6 (10.0-20.0); CALCIUM 8.6 MG/DL (8.5-10.1); CHLORIDE 110 MMOL/L (99-107); CREATININE 1.87 MG/DL (0.40-0.90); GLUCOSE 149 MG/DL (70-104); SODIUM 144 MMOL/L (135-145); TOTAL CARBON DIOXIDE 23.2 MMOL/L (24-32); eGFR 27 ML/MIN
[2023-02-24 22:00] VITALS: BP_SYST 133; BP_SYST 138; BP_DIAS 59; BP_DIAS 64
[2023-02-25] MEDS: normal saline 1000ml 1,000 ML IV SCH ×2 (03:25→23:25)
[2023-02-25 06:22] LABS: BASOPHILS # (AUTO) 0.1 X10'3 (0-0.2); EOSINOPHILS # (AUTO) 0.4 X10'3 (0-0.9); EOSINOPHILS % (AUTO) 4.5 % (0-6); HEMATOCRIT 22.3 % (35.0-45.0); HEMOGLOBIN 7.2 g/dl (12.0-16.0); LYMPHOCYTES # (AUTO) 2.3 X10'3 (1.1-4.8); MEAN CORPUSCULAR HEMOGLOBIN 27.7 PG (27.0-31.0); MEAN CORPUSCULAR HGB CONC 32.3 g/dL (33.0-36.5); MEAN CORPUSCULAR VOLUME 85.9 FL (78-98); MEAN PLATELET VOLUME 8.9 FL (7.4-10.4); MONOCYTES # (AUTO) 0.7 X10'3 (0-0.9); MONOCYTES % (AUTO) 8.6 % (2-12); NEUTROPHILS # (AUTO) 4.8 X10'3 (1.8-7.7); NEUTROPHILS % (AUTO) 57.9 % (42-75); PLATELET COUNT 240 X10'3 (140-440); RED BLOOD COUNT 2.59 X10'6 (4.20-5.60); RED CELL DISTRIBUTION WIDTH 14.6 % (11.5-14.5); WHITE BLOOD COUNT 8.3 X10'3 (4.5-11.0)
[2023-02-25 06:38] LABS: ALBUMIN 2.3 G/DL (3.4-5.0); ANION GAP 10 (8-16); BLOOD UREA NITROGEN 56 MG/DL (7-18); BUN/CREATININE RATIO 30.6 (10.0-20.0); CALCIUM 8.6 MG/DL (8.5-10.1); CHLORIDE 112 MMOL/L (99-107); CREATININE 1.83 MG/DL (0.40-0.90); GLUCOSE 133 MG/DL (70-104); POTASSIUM 4.7 MMOL/L (3.5-5.1); SODIUM 146 MMOL/L (135-145); TOTAL CARBON DIOXIDE 23.8 MMOL/L (24-32); eGFR 28 ML/MIN
[2023-02-25 07:20] VITALS: BP 135/69
[2023-02-25] MEDS: lansoprazole 15mg solutab PO SCH (07:30)
[2023-02-25] MEDS: lactose-reduced food (Ensure Enlive) - 237ml bottle PO SCH ×2 (08:00→20:32)
[2023-02-25] MEDS: levetiracetam 250mg tablet PO SCH (08:00)
[2023-02-25] MEDS: K and/or MAG REPLACEMENT MC SCH ×2 (08:00→20:00)
[2023-02-25] MEDS: atorvastatin 20mg tablet PO SCH (08:55)
[2023-02-25] MEDS: aspirin 81mg tab.chew PO SCH (08:55)
[2023-02-25] MEDS: amLODIPine 5mg tablet PO SCH (08:56)
[2023-02-25] MEDS: ascorbic acid 500mg tablet PO SCH ×3 (08:56→18:03)
[2023-02-25] MEDS: lisinopril 10 MG tablet PO SCH (08:56)
[2023-02-25] MEDS: ferrous sulfate 300mg/5ml UD oral liquid PO SCH ×2 (09:00→20:48)
[2023-02-25 18:00] VITALS: BP 145/61
[2023-02-25 22:00] VITALS: BP 158/61
[2023-02-26 06:00] VITALS: BP 140/62
[2023-02-26] MEDS: K and/or MAG REPLACEMENT MC SCH ×2 (08:00→20:00)
[2023-02-26] MEDS: levetiracetam 250mg tablet PO SCH (08:17)
[2023-02-26] MEDS: acetaminophen 325mg tablet PO PRN ×2 (08:17→21:42)
[2023-02-26] MEDS: aspirin 81mg tab.chew PO SCH (08:17)
[2023-02-26] MEDS: amLODIPine 5mg tablet PO SCH (08:18)
[2023-02-26] MEDS: atorvastatin 20mg tablet PO SCH (08:18)
[2023-02-26] MEDS: lansoprazole 15mg solutab PO SCH (08:19)
[2023-02-26] MEDS: ferrous sulfate 300mg/5ml UD oral liquid PO SCH ×2 (08:19→21:42)
[2023-02-26] MEDS: sertraline 25mg tablet PO SCH (08:19)
[2023-02-26] MEDS: ascorbic acid 500mg tablet PO SCH ×3 (08:19→17:48)
[2023-02-26] MEDS: lactose-reduced food (Ensure Enlive) - 237ml bottle PO SCH ×2 (08:27→20:00)
[2023-02-26 09:35] LABS: ALBUMIN 2.7 G/DL (3.4-5.0); ANION GAP 9 (8-16); BLOOD UREA NITROGEN 51 MG/DL (7-18); BUN/CREATININE RATIO 30.4 (10.0-20.0); CHLORIDE 112 MMOL/L (99-107); CREATININE 1.68 MG/DL (0.40-0.90); GLUCOSE 156 MG/DL (70-104); POTASSIUM 4.7 MMOL/L (3.5-5.1); SODIUM 145 MMOL/L (135-145); TOTAL CARBON DIOXIDE 24.2 MMOL/L (24-32); eGFR 31 ML/MIN
[2023-02-26 10:00] VITALS: BP 112/61
[2023-02-26] MEDS: lisinopril 2.5mg tablet PO SCH (11:45)
[2023-02-26 12:09] LABS: HEMATOCRIT 27.3 % (35.0-45.0); HEMOGLOBIN 8.7 g/dl (12.0-16.0); MEAN CORPUSCULAR HEMOGLOBIN 27.5 PG (27.0-31.0); MEAN CORPUSCULAR HGB CONC 31.8 g/dL (33.0-36.5); MEAN CORPUSCULAR VOLUME 86.5 FL (78-98); PLATELET COUNT 280 X10'3 (140-440); RED BLOOD COUNT 3.15 X10'6 (4.20-5.60); RED CELL DISTRIBUTION WIDTH 15.1 % (11.5-14.5); WHITE BLOOD COUNT 9.3 X10'3 (4.5-11.0)
[2023-02-26 18:00] VITALS: BP 94/47
[2023-02-26] MEDS: normal saline 1000ml 1,000 ML IV SCH (19:25)
[2023-02-26 22:00] VITALS: BP 100/58
[2023-02-27 06:18] LABS: HEMATOCRIT 24.7 % (35.0-45.0); HEMOGLOBIN 7.9 g/dl (12.0-16.0); MEAN CORPUSCULAR HEMOGLOBIN 27.5 PG (27.0-31.0); MEAN PLATELET VOLUME 8.7 FL (7.4-10.4); PLATELET COUNT 237 X10'3 (140-440); RED BLOOD COUNT 2.87 X10'6 (4.20-5.60); RED CELL DISTRIBUTION WIDTH 15.1 % (11.5-14.5); WHITE BLOOD COUNT 8.6 X10'3 (4.5-11.0)
[2023-02-27 06:27] LABS: ALBUMIN 2.6 G/DL (3.4-5.0); ANION GAP 8 (8-16); BLOOD UREA NITROGEN 51 MG/DL (7-18); BUN/CREATININE RATIO 30.2 (10.0-20.0); CALCIUM 8.9 MG/DL (8.5-10.1); CHLORIDE 113 MMOL/L (99-107); CREATININE 1.69 MG/DL (0.40-0.90); GLUCOSE 131 MG/DL (70-104); POTASSIUM 4.6 MMOL/L (3.5-5.1); SODIUM 145 MMOL/L (135-145); TOTAL CARBON DIOXIDE 23.8 MMOL/L (24-32); eGFR 31 ML/MIN
[2023-02-27] MEDS: lactose-reduced food (Ensure Enlive) - 237ml bottle PO SCH ×2 (07:31→20:00)
[2023-02-27] MEDS: levetiracetam 250mg tablet PO SCH (07:39)
[2023-02-27] MEDS: ferrous sulfate 300mg/5ml UD oral liquid PO SCH ×2 (07:39→19:56)
[2023-02-27] MEDS: atorvastatin 20mg tablet PO SCH (07:39)
[2023-02-27] MEDS: amLODIPine 5mg tablet PO SCH (07:40)
[2023-02-27] MEDS: sertraline 25mg tablet PO SCH (07:40)
[2023-02-27] MEDS: lisinopril 2.5mg tablet PO SCH (07:40)
[2023-02-27] MEDS: lansoprazole 15mg solutab PO SCH (07:40)
[2023-02-27] MEDS: aspirin 81mg tab.chew PO SCH (07:42)
[2023-02-27] MEDS: ascorbic acid 500mg tablet PO SCH ×3 (07:42→17:17)
[2023-02-27] MEDS: K and/or MAG REPLACEMENT MC SCH ×2 (07:43→20:00)
[2023-02-27 10:00] VITALS: BP 181/66
[2023-02-27] MEDS: normal saline 1000ml 1,000 ML IV SCH (15:25)
[2023-02-27] MEDS: acetaminophen 325mg tablet PO PRN (17:17)
[2023-02-27 18:00] VITALS: BP 167/64
[2023-02-27 22:00] VITALS: BP 155/50
[2023-02-28 06:00] VITALS: BP 181/70
[2023-02-28] MEDS: ascorbic acid 500mg tablet PO SCH ×2 (07:51→12:30)
[2023-02-28] MEDS: lansoprazole 15mg solutab PO SCH (07:51)
[2023-02-28] MEDS: aspirin 81mg tab.chew PO SCH (07:52)
[2023-02-28] MEDS: lisinopril 2.5mg tablet PO SCH (07:52)
[2023-02-28] MEDS: sertraline 25mg tablet PO SCH (07:52)
[2023-02-28] MEDS: atorvastatin 20mg tablet PO SCH (07:53)
[2023-02-28] MEDS: ferrous sulfate 300mg/5ml UD oral liquid PO SCH ×2 (07:55→20:08)
[2023-02-28 08:00] LABS: HEMATOCRIT 23.4 % (35.0-45.0); HEMOGLOBIN 7.5 g/dl (12.0-16.0); MEAN CORPUSCULAR HEMOGLOBIN 27.6 PG (27.0-31.0); MEAN CORPUSCULAR HGB CONC 32.2 g/dL (33.0-36.5); MEAN CORPUSCULAR VOLUME 85.6 FL (78-98); MEAN PLATELET VOLUME 9.2 FL (7.4-10.4); PLATELET COUNT 227 X10'3 (140-440); RED BLOOD COUNT 2.73 X10'6 (4.20-5.60); RED CELL DISTRIBUTION WIDTH 14.8 % (11.5-14.5); WHITE BLOOD COUNT 8.2 X10'3 (4.5-11.0)
[2023-02-28] MEDS: K and/or MAG REPLACEMENT MC SCH ×2 (08:00→20:00)
[2023-02-28] MEDS: lactose-reduced food (Ensure Enlive) - 237ml bottle PO SCH ×2 (08:00→20:00)
[2023-02-28] MEDS ORDERED: amLODIPine 5mg tablet PO SCH (08:00)
[2023-02-28 08:26] LABS: ALBUMIN 2.4 G/DL (3.4-5.0); ANION GAP 11 (8-16); BLOOD UREA NITROGEN 51 MG/DL (7-18); BUN/CREATININE RATIO 29.8 (10.0-20.0); CALCIUM 8.6 MG/DL (8.5-10.1); CHLORIDE 110 MMOL/L (99-107); CREATININE 1.71 MG/DL (0.40-0.90); GLUCOSE 124 MG/DL (70-104); POTASSIUM 4.4 MMOL/L (3.5-5.1); SODIUM 142 MMOL/L (135-145); TOTAL CARBON DIOXIDE 21.4 MMOL/L (24-32); eGFR 30 ML/MIN
[2023-02-28 10:00] VITALS: BP 148/58
[2023-02-28 18:00] VITALS: BP 167/53
[2023-02-28] MEDS: normal saline 1000ml 1,000 ML IV SCH ×2 (20:09→23:48)
[2023-02-28 22:00] VITALS: BP 87/63
[2023-02-28 22:55] VITALS: BP 155/61
[2023-03-01 06:00] VITALS: BP 157/63
[2023-03-01] MEDS: ferrous sulfate 300mg/5ml UD oral liquid PO SCH ×2 (07:48→20:55)
[2023-03-01] MEDS: lansoprazole 15mg solutab PO SCH (07:49)
[2023-03-01] MEDS: sertraline 25mg tablet PO SCH (07:50)
[2023-03-01] MEDS: lisinopril 2.5mg tablet PO SCH (07:50)
[2023-03-01] MEDS: amLODIPine 5mg tablet PO SCH (07:50)
[2023-03-01] MEDS: acetaminophen 325mg tablet PO PRN (07:50)
[2023-03-01] MEDS: atorvastatin 20mg tablet PO SCH (07:51)
[2023-03-01] MEDS: K and/or MAG REPLACEMENT MC SCH ×2 (07:51→20:00)
[2023-03-01] MEDS: aspirin 81mg tab.chew PO SCH (07:51)
[2023-03-01] MEDS: lactose-reduced food (Ensure Enlive) - 237ml bottle PO SCH ×2 (07:51→20:58)
[2023-03-01] MEDS: ascorbic acid 500mg tablet PO SCH ×4 (07:51→17:23)
[2023-03-01 09:24] LABS: HEMATOCRIT 25.7 % (35.0-45.0); HEMOGLOBIN 8.3 g/dl (12.0-16.0); MEAN CORPUSCULAR HEMOGLOBIN 27.9 PG (27.0-31.0); MEAN CORPUSCULAR HGB CONC 32.3 g/dL (33.0-36.5); MEAN CORPUSCULAR VOLUME 86.2 FL (78-98); MEAN PLATELET VOLUME 9.4 FL (7.4-10.4); PLATELET COUNT 235 X10'3 (140-440); RED BLOOD COUNT 2.99 X10'6 (4.20-5.60); RED CELL DISTRIBUTION WIDTH 15.1 % (11.5-14.5); WHITE BLOOD COUNT 8.8 X10'3 (4.5-11.0)
[2023-03-01 09:31] LABS: ALBUMIN 2.7 G/DL (3.4-5.0); ANION GAP 11 (8-16); BLOOD UREA NITROGEN 50 MG/DL (7-18); BUN/CREATININE RATIO 28.4 (10.0-20.0); CALCIUM 8.8 MG/DL (8.5-10.1); CHLORIDE 111 MMOL/L (99-107); CREATININE 1.76 MG/DL (0.40-0.90); GLUCOSE 170 MG/DL (70-104); POTASSIUM 4.5 MMOL/L (3.5-5.1); SODIUM 144 MMOL/L (135-145); TOTAL CARBON DIOXIDE 21.9 MMOL/L (24-32); eGFR 29 ML/MIN
[2023-03-01 10:00] VITALS: BP 156/60
[2023-03-01] MEDS: normal saline 1000ml 1,000 ML IV SCH (13:08)
[2023-03-01 18:00] VITALS: BP 136/60
[2023-03-01 22:00] VITALS: BP 187/74
[2023-03-02] MEDS: normal saline 1000ml 1,000 ML IV SCH ×2 (05:00→16:11)
[2023-03-02 06:00] VITALS: BP 119/62
[2023-03-02 07:43] LABS: ALBUMIN 2.5 G/DL (3.4-5.0); ANION GAP 12 (8-16); BLOOD UREA NITROGEN 50 MG/DL (7-18); BUN/CREATININE RATIO 31.4 (10.0-20.0); CALCIUM 8.6 MG/DL (8.5-10.1); CHLORIDE 110 MMOL/L (99-107); CREATININE 1.59 MG/DL (0.40-0.90); GLUCOSE 122 MG/DL (70-104); SODIUM 143 MMOL/L (135-145); TOTAL CARBON DIOXIDE 20.9 MMOL/L (24-32); eGFR 33 ML/MIN
[2023-03-02 07:45] LABS: POTASSIUM 4.9 MMOL/L (3.5-5.1)
[2023-03-02 07:53] LABS: HEMATOCRIT 25.2 % (35.0-45.0); MEAN CORPUSCULAR HEMOGLOBIN 27.6 PG (27.0-31.0); MEAN CORPUSCULAR HGB CONC 31.8 g/dL (33.0-36.5); MEAN CORPUSCULAR VOLUME 86.7 FL (78-98); MEAN PLATELET VOLUME 9.6 FL (7.4-10.4); PLATELET COUNT 202 X10'3 (140-440); RED BLOOD COUNT 2.91 X10'6 (4.20-5.60); RED CELL DISTRIBUTION WIDTH 14.6 % (11.5-14.5); WHITE BLOOD COUNT 9.9 X10'3 (4.5-11.0)
[2023-03-02] MEDS: K and/or MAG REPLACEMENT MC SCH ×2 (08:00→20:00)
[2023-03-02] MEDS: atorvastatin 20mg tablet PO SCH (08:23)
[2023-03-02] MEDS: aspirin 81mg tab.chew PO SCH (08:23)
[2023-03-02] MEDS: ascorbic acid 500mg tablet PO SCH ×3 (08:23→16:45)
[2023-03-02] MEDS: sertraline 25mg tablet PO SCH (08:24)
[2023-03-02] MEDS: hydrALAZINE 25 MG tablet PO SCH ×3 (08:24→16:46)
[2023-03-02] MEDS: lansoprazole 15mg solutab PO SCH (08:24)
[2023-03-02] MEDS: ferrous sulfate 300mg/5ml UD oral liquid PO SCH ×2 (08:24→19:46)
[2023-03-02] MEDS: lisinopril 2.5mg tablet PO SCH (08:24)
[2023-03-02] MEDS: amLODIPine 5mg tablet PO SCH (08:24)
[2023-03-02] MEDS: lactose-reduced food (Ensure Enlive) - 237ml bottle PO SCH ×2 (08:25→20:00)
[2023-03-02 10:00] VITALS: BP 170/62
[2023-03-02 18:00] VITALS: BP 157/65
[2023-03-02 22:00] VITALS: BP 134/59
[2023-03-03 02:00] VITALS: BP 170/100
[2023-03-03] MEDS: hydrALAZINE 25 MG tablet PO SCH ×3 (02:16→17:27)
[2023-03-03] MEDS: normal saline 1000ml 1,000 ML IV SCH (04:08)
[2023-03-03 06:00] VITALS: BP 150/50
[2023-03-03 06:44] LABS: HEMATOCRIT 23.9 % (35.0-45.0); HEMOGLOBIN 7.7 g/dl (12.0-16.0); MEAN CORPUSCULAR HEMOGLOBIN 27.8 PG (27.0-31.0); MEAN CORPUSCULAR HGB CONC 32.1 g/dL (33.0-36.5); MEAN CORPUSCULAR VOLUME 86.5 FL (78-98); MEAN PLATELET VOLUME 9.6 FL (7.4-10.4); PLATELET COUNT 194 X10'3 (140-440); RED BLOOD COUNT 2.77 X10'6 (4.20-5.60); RED CELL DISTRIBUTION WIDTH 14.9 % (11.5-14.5); WHITE BLOOD COUNT 9.2 X10'3 (4.5-11.0)
[2023-03-03 06:48] LABS: ALBUMIN 2.2 G/DL (3.4-5.0); ANION GAP 14 (8-16); BLOOD UREA NITROGEN 49 MG/DL (7-18); BUN/CREATININE RATIO 32.7 (10.0-20.0); CALCIUM 8.4 MG/DL (8.5-10.1); CHLORIDE 111 MMOL/L (99-107); GLUCOSE 135 MG/DL (70-104); POTASSIUM 4.5 MMOL/L (3.5-5.1); SODIUM 142 MMOL/L (135-145); eGFR 35 ML/MIN
[2023-03-03] MEDS: amLODIPine 5mg tablet PO SCH (07:35)
[2023-03-03] MEDS: lansoprazole 15mg solutab PO SCH (07:35)
[2023-03-03] MEDS: lisinopril 2.5mg tablet PO SCH (07:35)
[2023-03-03] MEDS: sertraline 25mg tablet PO SCH (07:35)
[2023-03-03] MEDS: ferrous sulfate 300mg/5ml UD oral liquid PO SCH ×2 (07:36→21:15)
[2023-03-03] MEDS: atorvastatin 20mg tablet PO SCH (07:36)
[2023-03-03] MEDS: ascorbic acid 500mg tablet PO SCH ×3 (07:38→17:25)
[2023-03-03] MEDS: aspirin 81mg tab.chew PO SCH (07:38)
[2023-03-03] MEDS: lactose-reduced food (Ensure Enlive) - 237ml bottle PO SCH ×2 (07:46→20:45)
[2023-03-03] MEDS: K and/or MAG REPLACEMENT MC SCH ×2 (08:00→20:00)
[2023-03-03] MEDS ORDERED: sodium bicarbonate (8.4%) inj. 100 MEQ in dextrose 5%-water 1,000 ML IV SCH (08:40)
[2023-03-03 15:08] LABS: ALBUMIN 2.8 G/DL (3.4-5.0); ANION GAP 12 (8-16); BLOOD UREA NITROGEN 46 MG/DL (7-18); BUN/CREATININE RATIO 30.3 (10.0-20.0); CALCIUM 9.1 MG/DL (8.5-10.1); CHLORIDE 109 MMOL/L (99-107); CREATININE 1.52 MG/DL (0.40-0.90); GLUCOSE 145 MG/DL (70-104); POTASSIUM 4.2 MMOL/L (3.5-5.1); SODIUM 142 MMOL/L (135-145); TOTAL CARBON DIOXIDE 21.5 MMOL/L (24-32); eGFR 35 ML/MIN
[2023-03-03 18:20] VITALS: BP 197/71
[2023-03-03 22:00] VITALS: BP 103/58
[2023-03-04] MEDS: hydrALAZINE 25 MG tablet PO SCH ×3 (02:00→16:58)
[2023-03-04 06:00] VITALS: BP 106/58
[2023-03-04 06:51] LABS: BASOPHILS # (AUTO) 0.1 X10'3 (0-0.2); BASOPHILS % (AUTO) 0.6 % (0-1); EOSINOPHILS # (AUTO) 0.4 X10'3 (0-0.9); EOSINOPHILS % (AUTO) 3.7 % (0-6); HEMATOCRIT 25.3 % (35.0-45.0); LYMPHOCYTES # (AUTO) 2.5 X10'3 (1.1-4.8); LYMPHOCYTES % (AUTO) 26.1 % (21-51); MEAN CORPUSCULAR HEMOGLOBIN 27.4 PG (27.0-31.0); MEAN CORPUSCULAR HGB CONC 31.5 g/dL (33.0-36.5); MEAN PLATELET VOLUME 9.4 FL (7.4-10.4); MONOCYTES # (AUTO) 0.7 X10'3 (0-0.9); MONOCYTES % (AUTO) 7.5 % (2-12); NEUTROPHILS # (AUTO) 5.9 X10'3 (1.8-7.7); NEUTROPHILS % (AUTO) 62.1 % (42-75); PLATELET COUNT 225 X10'3 (140-440); RED BLOOD COUNT 2.91 X10'6 (4.20-5.60); RED CELL DISTRIBUTION WIDTH 14.9 % (11.5-14.5); WHITE BLOOD COUNT 9.6 X10'3 (4.5-11.0)
[2023-03-04 07:15] LABS: ALANINE AMINOTRANSFERASE 20 U/L (12-78); ALBUMIN 2.5 G/DL (3.4-5.0); ALBUMIN/GLOBULIN RATIO 0.9 (1.1-1.5); ALKALINE PHOSPHATASE 51 IU/L (46-116); ANION GAP 14 (8-16); ASPARTATE AMINO TRANSFERASE 18 U/L (10-37); BILIRUBIN,TOTAL 0.2 MG/DL (0.1-1.0); BLOOD UREA NITROGEN 46 MG/DL (7-18); BUN/CREATININE RATIO 28.6 (10.0-20.0); CALCIUM 8.6 MG/DL (8.5-10.1); CHLORIDE 110 MMOL/L (99-107); CREATININE 1.61 MG/DL (0.40-0.90); GLUCOSE 129 MG/DL (70-104); POTASSIUM 4.4 MMOL/L (3.5-5.1); SODIUM 144 MMOL/L (135-145); TOTAL CARBON DIOXIDE 20.4 MMOL/L (24-32); TOTAL PROTEIN 5.4 G/DL (6.4-8.2); eGFR 32 ML/MIN
[2023-03-04] MEDS: atorvastatin 20mg tablet PO SCH (08:03)
[2023-03-04] MEDS: ferrous sulfate 300mg/5ml UD oral liquid PO SCH ×2 (08:03→20:53)
[2023-03-04] MEDS: lansoprazole 15mg solutab PO SCH (08:04)
[2023-03-04] MEDS: amLODIPine 5mg tablet PO SCH (08:04)
[2023-03-04] MEDS: aspirin 81mg tab.chew PO SCH (08:04)
[2023-03-04] MEDS: lisinopril 2.5mg tablet PO SCH (08:05)
[2023-03-04] MEDS: sertraline 25mg tablet PO SCH (08:05)
[2023-03-04] MEDS: ascorbic acid 500mg tablet PO SCH ×3 (08:05→16:58)
[2023-03-04] MEDS: K and/or MAG REPLACEMENT MC SCH ×2 (08:16→20:00)
[2023-03-04] MEDS: lactose-reduced food (Ensure Enlive) - 237ml bottle PO SCH ×2 (08:16→20:53)
[2023-03-04 10:00] VITALS: BP 174/67
[2023-03-04 18:00] VITALS: BP 188/73
[2023-03-04] MEDS: acetaminophen 325mg tablet PO PRN (20:53)
[2023-03-04 22:00] VITALS: BP 124/46
[2023-03-05] MEDS: hydrALAZINE 25 MG tablet PO SCH ×3 (00:24→17:34)
[2023-03-05 06:00] VITALS: BP 170/66
[2023-03-05] MEDS: K and/or MAG REPLACEMENT MC SCH ×2 (08:00→20:00)
[2023-03-05] MEDS: lisinopril 2.5mg tablet PO SCH (09:13)
[2023-03-05] MEDS: aspirin 81mg tab.chew PO SCH (09:13)
[2023-03-05] MEDS: ascorbic acid 500mg tablet PO SCH ×3 (09:13→17:34)
[2023-03-05] MEDS: sertraline 25mg tablet PO SCH (09:14)
[2023-03-05] MEDS: lansoprazole 15mg solutab PO SCH (09:14)
[2023-03-05] MEDS: ferrous sulfate 300mg/5ml UD oral liquid PO SCH ×2 (09:14→20:45)
[2023-03-05] MEDS: atorvastatin 20mg tablet PO SCH (09:15)
[2023-03-05] MEDS: amLODIPine 5mg tablet PO SCH (09:15)
[2023-03-05] MEDS: lactose-reduced food (Ensure Enlive) - 237ml bottle PO SCH ×2 (09:20→20:45)
[2023-03-05 10:00] VITALS: BP 184/72
[2023-03-05 18:00] VITALS: BP 175/51
[2023-03-05] MEDS ORDERED: hyDRALAzine 10mg tablet PO PRN (18:15)
[2023-03-05] MEDS ORDERED: LORazepam 0.5 MG tablet PO PRN (18:15)
[2023-03-05 22:00] VITALS: BP 155/60
[2023-03-05 23:50] VITALS: BP 125/68
[2023-03-06] MEDS: hydrALAZINE 25 MG tablet PO SCH ×2 (00:45→07:18)
[2023-03-06 06:54] VITALS: BP 144/50
[2023-03-06] MEDS: ascorbic acid 500mg tablet PO SCH ×2 (07:18→12:28)
[2023-03-06] MEDS: atorvastatin 20mg tablet PO SCH (07:18)
[2023-03-06] MEDS: lisinopril 2.5mg tablet PO SCH (07:19)
[2023-03-06] MEDS: lansoprazole 15mg solutab PO SCH (07:19)
[2023-03-06] MEDS: aspirin 81mg tab.chew PO SCH (07:19)
[2023-03-06] MEDS: ferrous sulfate 300mg/5ml UD oral liquid PO SCH (07:19)
[2023-03-06] MEDS: sertraline 25mg tablet PO SCH (07:19)
[2023-03-06] MEDS: amLODIPine 5mg tablet PO SCH (07:19)
[2023-03-06] MEDS: lactose-reduced food (Ensure Enlive) - 237ml bottle PO SCH (07:28)
[2023-03-06] MEDS: K and/or MAG REPLACEMENT MC SCH (07:28)
[2023-03-06 10:00] VITALS: BP 160/53
== END 2023-03-06 14:45 | DRG 45 ==
LOC: ER 21:47 → ED HOLD 02-01 00:23 → EDBEDREQ 02-01 19:34 → ORTHO 4S 02-01 20:10
PROVIDERS: ADMIT Internal Medicine; ATTEND Internal Medicine
PROC: 4A00X4Z Measurement of Central Nervous Electrical Activity, External Approach (ICD-10-PCS; principal; 2023-02-05)
DX: I63.9 Cerebral infarction, unspecified (principal); N17.0 Acute kidney failure with tubular necrosis; E43 Unspecified severe protein-calorie malnutrition; E87.0 Hyperosmolality and hypernatremia; E11.22 Type 2 diabetes mellitus with diabetic chronic kidney disease; R56.9 Unspecified convulsions; D62 Acute posthemorrhagic anemia; I69.351 Hemiplegia and hemiparesis following cerebral infarction affecting right dominant side; R47.01 Aphasia; E11.42 Type 2 diabetes mellitus with diabetic polyneuropathy; E87.5 Hyperkalemia; Z60.2 Problems related to living alone; R13.10 Dysphagia, unspecified; N18.30 Chronic kidney disease, stage 3 unspecified; K92.1 Melena; I12.9 Hypertensive chronic kidney disease with stage 1 through stage 4 chronic kidney disease, or unspecified chronic kidney disease; R47.1 Dysarthria and anarthria; R29.705 NIHSS score 5; E78.5 Hyperlipidemia, unspecified; F32.A Depression, unspecified; G89.29 Other chronic pain; M54.9 Dorsalgia, unspecified; Z79.899 Other long term (current) drug therapy; Z59.00 Homelessness unspecified; Z88.5 Allergy status to narcotic agent; Z68.22 Body mass index [BMI] 22.0-22.9, adult
CPT/HCPCS: 36415; 70450; 70544; 70551; 71045; 80048; 80053; 80061; 80177; 80305; 80320; 81001; 81003; 82140; 82607; 82728; 82948; 83540; 83550; 83735; 84132; 85025; 85027; 85610; 85730; 86592; 86885; 86900; 86901; 87081; 92508; 92616; 93005; 93308; 93880; 95816; 97110; 97112; 97116; 97162; 97530; 97535; 99285; A5200; A6209; A6212; A6213; A6250; A6258; A9575; C9113; G0378; J0360; J1750; J1815; J1953; J2060; J2270; J2354; J3490; J7030; J7040; J7042; J7070; Q9967

== ENCOUNTER 2023-03-12 23:53 | Emergency (ER) | payer MEDICAID ==
[~2023-03-12] VITALS: Ht 175.3 cm; Wt 81.8 kg
[~2023-03-12 23:53] MED LIST changes: -ACET-1008 PO; -ASPI-1071 PO; +ASPI81TA52 PO; +CETI10TA19 PO; +CHOL20002 PO; -FERR324T4 PO; +FERR325T28 PO; +FEXO-271 PO; -FLUO20CA39 PO; -GABA-530 PO; +GABA300C PO; -LISI10TA27 PO; +LISI20TA28 PO; +MAGN250T11 PO; -OMEP20CA16 PO; +POTA99CA PO; -PRAZ1CAP5 PO; -ROSU20TA73 PO; +calcium PO
[2023-03-13 01:18] VITALS: TEMP 98.4
[2023-03-13 01:50] LABS: BASOPHILS # (AUTO) 0.1 X10'3 (0-0.2); EOSINOPHILS # (AUTO) 0.3 X10'3 (0-0.9); EOSINOPHILS % (AUTO) 3.5 % (0-6); HEMATOCRIT 26.1 % (35.0-45.0); HEMOGLOBIN 8.5 g/dl (12.0-16.0); LYMPHOCYTES # (AUTO) 2.2 X10'3 (1.1-4.8); LYMPHOCYTES % (AUTO) 22.3 % (21-51); MEAN CORPUSCULAR HEMOGLOBIN 27.9 PG (27.0-31.0); MEAN CORPUSCULAR HGB CONC 32.5 g/dL (33.0-36.5); MEAN CORPUSCULAR VOLUME 85.8 FL (78-98); MEAN PLATELET VOLUME 8.6 FL (7.4-10.4); MONOCYTES # (AUTO) 0.7 X10'3 (0-0.9); MONOCYTES % (AUTO) 7.2 % (2-12); NEUTROPHILS # (AUTO) 6.5 X10'3 (1.8-7.7); PLATELET COUNT 251 X10'3 (140-440); RED BLOOD COUNT 3.04 X10'6 (4.20-5.60); RED CELL DISTRIBUTION WIDTH 14.4 % (11.5-14.5); WHITE BLOOD COUNT 9.9 X10'3 (4.5-11.0)
[2023-03-13 02:05] LABS: ALANINE AMINOTRANSFERASE 17 U/L (12-78); ALBUMIN 2.7 G/DL (3.4-5.0); ALBUMIN/GLOBULIN RATIO 0.8 (1.1-1.5); ALKALINE PHOSPHATASE 52 IU/L (46-116); ANION GAP 12 (8-16); ASPARTATE AMINO TRANSFERASE 9 U/L (10-37); BILIRUBIN,TOTAL 0.1 MG/DL (0.1-1.0); BLOOD UREA NITROGEN 50 MG/DL (7-18); BUN/CREATININE RATIO 22.7 (10.0-20.0); CALCIUM 9.3 MG/DL (8.5-10.1); CHLORIDE 108 MMOL/L (99-107); GLUCOSE 146 MG/DL (70-104); LIPASE 82 U/L (73-393); POTASSIUM 5.5 MMOL/L (3.5-5.1); SODIUM 143 MMOL/L (135-145); TOTAL PROTEIN 6.3 G/DL (6.4-8.2); eGFR 23 ML/MIN
[2023-03-13] MEDS ORDERED: normal saline 1000ml 1,000 ML IV ONE ×2 (03:05→03:25)
[2023-03-13] MEDS ORDERED: pantoprazole 40mg IV 80 MG in normal saline 100ml IV soln 100 ML IV ONE (03:05)
[2023-03-13] MEDS ORDERED: pantoprazole 40MG/NS 100ML BAG 100 ML IV ONE ×2 (03:10→03:25)
[2023-03-13 04:52] VITALS: BP 159/71; PULSE 67; RESP 16; O2SAT 95
[2023-03-13 05:26] LABS: ALBUMIN 2.2 G/DL (3.4-5.0); ANION GAP 12 (8-16); BLOOD UREA NITROGEN 44 MG/DL (7-18); BUN/CREATININE RATIO 24.2 (10.0-20.0); CALCIUM 7.7 MG/DL (8.5-10.1); CHLORIDE 114 MMOL/L (99-107); CREATININE 1.82 MG/DL (0.40-0.90); GLUCOSE 114 MG/DL (70-104); POTASSIUM 4.8 MMOL/L (3.5-5.1); SODIUM 147 MMOL/L (135-145); TOTAL CARBON DIOXIDE 20.7 MMOL/L (24-32); eGFR 28 ML/MIN
--- NOTE | 2023-03-13 05:55 | NUR ---
CALL PLACED TO [facility] TO ARRANGE TRANSPORT HOME FOR PT. [facility] IS CONTRACTED, NURSE TO NURSE REPORT GIVEN
--- NOTE | 2023-03-13 06:01 | NUR ---
[facility] NOT AVAILABLE UNTIL 0800
== END 2023-03-13 08:57 | disposition home or self-care (01) ==
LOC: ER 23:54
DX: E86.0 Dehydration (principal); I10 Essential (primary) hypertension; E11.40 Type 2 diabetes mellitus with diabetic neuropathy, unspecified; Z86.73 Personal history of transient ischemic attack (TIA), and cerebral infarction without residual deficits; G89.29 Other chronic pain; Z59.00 Homelessness unspecified; Z98.890 Other specified postprocedural states; Z88.8 Allergy status to other drugs, medicaments and biological substances; Z79.82 Long term (current) use of aspirin; Z79.899 Other long term (current) drug therapy
CPT/HCPCS: 36415; 80048; 80053; 83690; 85025; 96365; 96366; 99284; C9113; J7030; 96368

== ENCOUNTER 2023-04-11 18:28 | Inpatient (IN) | payer MEDICAID ==
[~2023-04-11] VITALS: Ht 172.7 cm; Wt 77.3 kg
[2023-04-11 19:32] LABS: BILIRUBIN,URINE NEGATIVE (Neg); CLARITY,URINE CLOUDY (Clear); COLOR,URINE YELLOW (Yellow); GLUCOSE, URINE NEGATIVE (Neg); KETONES,URINE NEGATIVE (Neg); LEUKOCYTE ESTERASE ,URINE NEGATIVE (Neg); NITRITES, URINE NEGATIVE (Neg); OCCULT BLOOD,URINE TRACE-INTACT (Neg); PH,URINE 5.5 (4.8-8.0); PROTEIN,URINE >=300 mg/dl (Neg); UROBILINOGEN,URINE 0.2 E.U/dL (0.2-1.0)
[2023-04-11 19:40] LABS: UA COLLECTION TYPE STRAIGHT CATH
[2023-04-11] MEDS ORDERED: naloxone 0.4 mg/ml inj IV ONE (19:45)
[2023-04-11] MEDS ORDERED: CefTRIAXone 2gm/D5W 50ml BAG 50 ML IV ONE (19:45)
[2023-04-11] MEDS ORDERED: normal saline 1000ML IV soln IV ONE (19:45)
[2023-04-11 19:46] LABS: ALANINE AMINOTRANSFERASE 20 U/L (12-78); ALBUMIN 3.3 G/DL (3.4-5.0); ALBUMIN/GLOBULIN RATIO 0.9 (1.1-1.5); ALKALINE PHOSPHATASE 55 IU/L (46-116); ANION GAP 11 (8-16); ASPARTATE AMINO TRANSFERASE 37 U/L (10-37); BILIRUBIN,TOTAL 0.2 MG/DL (0.1-1.0); BLOOD UREA NITROGEN 100 MG/DL (7-18); BUN/CREATININE RATIO 25.1 (10.0-20.0); CALCIUM 9.7 MG/DL (8.5-10.1); CHLORIDE 116 MMOL/L (99-107); CREATININE 3.98 MG/DL (0.40-0.90); GLUCOSE 127 MG/DL (70-104); LIPASE 82 U/L (73-393); SODIUM 147 MMOL/L (135-145); TOTAL CARBON DIOXIDE 20.1 MMOL/L (24-32); TOTAL PROTEIN 7.1 G/DL (6.4-8.2); eCRCL 15 ML/MIN; eGFR 11 ML/MIN
[2023-04-11 19:50] LABS: BASOPHILS # (AUTO) 0.1 X10'3 (0-0.2); BASOPHILS % (AUTO) 0.5 % (0-1); EOSINOPHILS % (AUTO) 0.2 % (0-6); HEMATOCRIT 28.7 % (35.0-45.0); HEMOGLOBIN 9.1 g/dl (12.0-16.0); LYMPHOCYTES # (AUTO) 0.9 X10'3 (1.1-4.8); LYMPHOCYTES % (AUTO) 6.8 % (21-51); MEAN CORPUSCULAR HEMOGLOBIN 27.8 PG (27.0-31.0); MEAN CORPUSCULAR HGB CONC 31.6 g/dL (33.0-36.5); MEAN CORPUSCULAR VOLUME 87.9 FL (78-98); MEAN PLATELET VOLUME 8.7 FL (7.4-10.4); MONOCYTES # (AUTO) 1.4 X10'3 (0-0.9); MONOCYTES % (AUTO) 10.7 % (2-12); NEUTROPHILS # (AUTO) 10.7 X10'3 (1.8-7.7); NEUTROPHILS % (AUTO) 81.8 % (42-75); PLATELET COUNT 250 X10'3 (140-440); RED BLOOD COUNT 3.27 X10'6 (4.20-5.60); RED CELL DISTRIBUTION WIDTH 13.9 % (11.5-14.5); WHITE BLOOD COUNT 13.1 X10'3 (4.5-11.0)
[2023-04-11 19:53] LABS: SQUAMOUS EPITHELIAL CELL,UR FEW /LPF (FEW); TRANSITIONAL EPI CELLS,URINE FEW /HPF
[2023-04-11 19:54] LABS: CELLULAR CAST 0-4 /LPF (NEGATIVE); COARSE GRANULAR CAST 0-3 /LPF (NEGATIVE); FINE GRANULAR CAST 0-3 /LPF (NEGATIVE)
[2023-04-11 19:56] LABS: RBC,URINE 0-2 /HPF (0-2)
[2023-04-11 19:57] LABS: BACTERIA,URINE 3+ /HPF (Neg)
[2023-04-11 20:02] LABS: POTASSIUM 7.5 MMOL/L (3.5-5.1)
[2023-04-11 20:09] LABS: MAGNESIUM 3.2 MG/DL (1.5-2.4)
[2023-04-11] MEDS ORDERED: dextrose 50%-water 50ml dispensing syringe IV ONE (20:35)
[2023-04-11] MEDS ORDERED: insulin regular, human U-100 3ml vial - multi-dose IV ONE (20:35)
[2023-04-11] MEDS ORDERED: normal saline 1000ML IV soln IVB ONE (20:35)
[2023-04-11] MEDS ORDERED: CALCIUM GLUC 1gm/50ml NACL,iso 50 ML IV ONE (20:35)
[2023-04-11] MEDS ORDERED: albuterol 2.5 MG/3 ML nebule NEB ONE (20:35)
[2023-04-11 21:24] VITALS: PULSE 83; RESP 12; O2SAT 97
[2023-04-11 21:34] VITALS: PULSE 83; RESP 14; O2SAT 100
[2023-04-11 21:34] LABS: ABG HCO3 17.1 mmol/L (22.0-26.0); ABG OXYGEN SATURATION 99.3 % (94-97); ABG PH (T) 7.273 (7.350-7.450); ABG PO2 (T) 141.5 mmHg (75.0-100.0); ALLEN'S TEST POSITIVE; FCOHb 1.3 % (0.0-3.9); FHHb 0.7 % (0.0-5.0); FLOW 4 L/min; FMetHb 0.3 % (0.0-1.5); FO2Hb 97.7 % (94-97); MODE NASAL CANNULA; PATIENT TEMPERATURE 37.1; TOTAL HEMOGLOBIN 8.2 G/dl (12.0-16.0)
[2023-04-11 22:12] LABS: ALBUMIN 2.6 G/DL (3.4-5.0); ANION GAP 9 (8-16); BLOOD UREA NITROGEN 92 MG/DL (7-18); BUN/CREATININE RATIO 24.7 (10.0-20.0); CALCIUM 8.9 MG/DL (8.5-10.1); CHLORIDE 120 MMOL/L (99-107); CREATININE 3.72 MG/DL (0.40-0.90); GLUCOSE 234 MG/DL (70-104); SODIUM 148 MMOL/L (135-145); TOTAL CARBON DIOXIDE 19.1 MMOL/L (24-32); eCRCL 16 ML/MIN; eGFR 12 ML/MIN
[2023-04-11 22:22] LABS: POTASSIUM 6.6 MMOL/L (3.5-5.1)
[2023-04-12] VITALS (10 sets, daily range): BP systolic 151–169; BP diastolic 52–68; PULSE 73–99; RESP 12–21; TEMP 97.6–100.8; O2SAT 96–100
[2023-04-12] MEDS ORDERED: insulin Lispro (HumaLOG) vial - multi-dose SQ SCH (00:10)
[2023-04-12] MEDS ORDERED: magnesium 4gm in 100ml NS 100 ML IV PRN (00:10)
[2023-04-12] MEDS ORDERED: magnesium 2GM in 50ml NS 50 ML IV PRN (00:10)
[2023-04-12] MEDS ORDERED: acetaminophen 325mg tablet PO PRN ×2 (00:10)
[2023-04-12] MEDS ORDERED: ondansetron/PF 4mg/2ml inj IV PRN (00:10)
[2023-04-12] MEDS ORDERED: bisacodyl 10mg suppository rectal RC PRN (00:10)
[2023-04-12] MEDS ORDERED: glucagon, human recombinant 1mg kit SUBCUT PRN (00:10)
[2023-04-12] MEDS ORDERED: albuterol 2.5 MG/3 ML nebule NEB PRN (00:10)
[2023-04-12] MEDS ORDERED: ipratropium/albuterol 3ml nebule NEB PRN (00:10)
[2023-04-12] MEDS ORDERED: mag hydrox/Alum hydrox/simeth 30ml oral suspension PO PRN (00:10)
[2023-04-12] MEDS ORDERED: HYDROcodone/acetaminophen 5mg/325mg tablet PO PRN (00:10)
[2023-04-12] MEDS ORDERED: potassium Cl 40MEQ/1/2NS 520ml 520 ML IV PRN (00:10)
[2023-04-12] MEDS ORDERED: sodium bicarbonate (8.4%) inj. 100 MEQ in dextrose 5%-water 1,000 ML IV SCH (00:10)
[2023-04-12] MEDS ORDERED: DEXTROSE 15 GM of carb/4 tabs (each vial/BOTTLE has 4 tablets) PO PRN ×2 (00:10)
[2023-04-12] MEDS ORDERED: dextrose 50%-water 50ml dispensing syringe IV PRN ×2 (00:10)
[2023-04-12] MEDS ORDERED: potassium Cl 20 mEq SR tablet PO PRN ×2 (00:10)
[2023-04-12] MEDS ORDERED: MESSAGE TO PHARMACY PO ONE (00:10)
[2023-04-12] MEDS ORDERED: hydrALAZINE 20mg/ml inj. IV PRN (01:20)
[2023-04-12 05:33] LABS: HEMOGLOBIN A1C 6.1 % (4.5-6.2)
--- NOTE | 2023-04-12 07:19 | NUR ---
RN ATTEMPTED TO CALL REPORT AND THERE WAS NO ANSWER. RN WILL TRY AGAIN.
--- NOTE | 2023-04-12 07:21 | NUR ---
RN ENTERED CMP LAB PER PROTOCOL TO DIAZ Dang. RN COLLECTED BLOOD AND SENT TO LAB. RN TRYING TO GET PT TO THE FLOOR. RN WILL ATTEMPT TO CALL REPORT AGAIN.
[2023-04-12 07:54] LABS: ALANINE AMINOTRANSFERASE 23 U/L (12-78); ALBUMIN 2.6 G/DL (3.4-5.0); ALBUMIN/GLOBULIN RATIO 0.8 (1.1-1.5); ALKALINE PHOSPHATASE 43 IU/L (46-116); ANION GAP 9 (8-16); ASPARTATE AMINO TRANSFERASE 34 U/L (10-37); BILIRUBIN,TOTAL 0.2 MG/DL (0.1-1.0); BLOOD UREA NITROGEN 76 MG/DL (7-18); BUN/CREATININE RATIO 24.5 (10.0-20.0); CALCIUM 8.5 MG/DL (8.5-10.1); CHLORIDE 120 MMOL/L (99-107); GLUCOSE 132 MG/DL (70-104); MAGNESIUM 2.7 MG/DL (1.5-2.4); SODIUM 150 MMOL/L (135-145); TOTAL CARBON DIOXIDE 21.1 MMOL/L (24-32); TOTAL PROTEIN 5.8 G/DL (6.4-8.2); eCRCL 19 ML/MIN; eGFR 15 ML/MIN
[2023-04-12 08:01] LABS: POTASSIUM 6.1 MMOL/L (3.5-5.1)
[2023-04-12] MEDS: K and/or MAG REPLACEMENT MC SCH ×2 (08:10→20:00)
--- NOTE | 2023-04-12 08:10 | NUR ---
Patient in room U 3027. I have received report from Summer RN and had the opportunity to ask questions and assume patient care. Pt settled into room. Skin ceck completed. Pt will open eyes to name. non verbal at this time.
--- NOTE | 2023-04-12 08:10 | NUR ---
Patient in room PCU 3027. I have received report from Xiao RN and had the opportunity to ask questions and assume patient care. Pt opens eyes to name. Non verbal at this time. Skin check completed. Will place on air bed fransico D/T multiple red areas forming on janki areas. Addendum: 04/12/23 at 1034 by Muna Dick RN Amended: Links added.
[2023-04-12] MEDS: docusate sod 100mg capsule PO SCH ×2 (08:15→20:00)
[2023-04-12] MEDS: heparin, porcine 5000 units/ml vial SQ SCH ×2 (09:16→21:50)
[2023-04-12 10:20] LABS: PRO BRAIN NATRIURETIC PEPTIDE 1755 PG/ML (0-125)
[2023-04-12] MEDS: CefTRIAXone/D5W-Rocephin 1gm 50 ML IV SCH (11:23)
[2023-04-12] MEDS: normal saline 1000ml 1,000 ML IV SCH ×2 (12:49→23:05)
[2023-04-12] MEDS ORDERED: sodium polystyrene sulfonate 15gm/60ml oral suspension PO ONE (14:00)
[2023-04-12] MEDS ORDERED: LORA-269 PO (16:55)
[2023-04-12] MEDS ORDERED: INSU100V9 SQ (16:55)
[2023-04-12] MEDS ORDERED: AMLO-139 PO (16:59)
[2023-04-12] MEDS ORDERED: ATOR40TA PO (16:59)
[2023-04-12] MEDS ORDERED: TRAM50TA2 PO (16:59)
[2023-04-12] MEDS ORDERED: HYDR-4070 PO (16:59)
--- NOTE | 2023-04-12 17:08 | NUR ---
PAGER ID: [phone] MESSAGE: [id number] [facility]. [facility] rec ready to address. Lucinda give. good BM output. Lab is on the way for BMP + mg draw. Muna Dick RN U
[2023-04-12 17:42] LABS: ALBUMIN 2.5 G/DL (3.4-5.0); ANION GAP 10 (8-16); BLOOD UREA NITROGEN 63 MG/DL (7-18); BUN/CREATININE RATIO 22.4 (10.0-20.0); CALCIUM 8.6 MG/DL (8.5-10.1); CHLORIDE 123 MMOL/L (99-107); CREATININE 2.81 MG/DL (0.40-0.90); GLUCOSE 136 MG/DL (70-104); MAGNESIUM 2.5 MG/DL (1.5-2.4); POTASSIUM 4.9 MMOL/L (3.5-5.1); SODIUM 153 MMOL/L (135-145); TOTAL CARBON DIOXIDE 19.6 MMOL/L (24-32); eCRCL 21 ML/MIN; eGFR 17 ML/MIN
--- NOTE | 2023-04-12 17:55 | NUR ---
PAGER ID: [phone] MESSAGE: [id number] Pritesh. K= 4.9, NA+ 153 Pt has NS running at 100. K [facility]
--- NOTE | 2023-04-12 18:19 | NUR ---
Problems reprioritized. Patient report given, questions answered & plan of care reviewed with Miranda RHOADES Pt back to sleep. Was awake and moving arms and making verbal noises. Addendum: 04/12/23 at 1822 by Muna Dick RN Amended: Links added.
[2023-04-12] MEDS: insulin glargine (Lantus) pen - multi-dose SQ SCH (21:00)
[2023-04-13] VITALS (8 sets, daily range): BP systolic 150–177; BP diastolic 66–76; PULSE 82–95; RESP 14–17; TEMP 97.6–97.8; O2SAT 92–98
[2023-04-13] MEDS ORDERED: AMLO10TA PO (01:13)
[2023-04-13] MEDS ORDERED: POTA8TAB69 PO (02:21)
--- NOTE | 2023-04-13 06:50 | NUR ---
Patient in room PCU 3009. I have received report from JF JIN and had the opportunity to ask questions and assume patient care.
[2023-04-13 07:00] LABS: BASOPHILS # (AUTO) 0.1 X10'3 (0-0.2); BASOPHILS % (AUTO) 1.1 % (0-1); EOSINOPHILS % (AUTO) 0.5 % (0-6); HEMATOCRIT 25.5 % (35.0-45.0); LYMPHOCYTES # (AUTO) 1.1 X10'3 (1.1-4.8); LYMPHOCYTES % (AUTO) 13.4 % (21-51); MEAN CORPUSCULAR HEMOGLOBIN 27.8 PG (27.0-31.0); MEAN CORPUSCULAR HGB CONC 31.3 g/dL (33.0-36.5); MEAN CORPUSCULAR VOLUME 88.9 FL (78-98); MONOCYTES # (AUTO) 0.8 X10'3 (0-0.9); MONOCYTES % (AUTO) 9.5 % (2-12); NEUTROPHILS # (AUTO) 6.4 X10'3 (1.8-7.7); NEUTROPHILS % (AUTO) 75.5 % (42-75); PLATELET COUNT 222 X10'3 (140-440); RED BLOOD COUNT 2.87 X10'6 (4.20-5.60); RED CELL DISTRIBUTION WIDTH 14.1 % (11.5-14.5); WHITE BLOOD COUNT 8.4 X10'3 (4.5-11.0)
[2023-04-13 07:26] LABS: ALANINE AMINOTRANSFERASE 27 U/L (12-78); ALBUMIN 2.6 G/DL (3.4-5.0); ALBUMIN/GLOBULIN RATIO 0.8 (1.1-1.5); ALKALINE PHOSPHATASE 45 IU/L (46-116); ANION GAP 14 (8-16); ASPARTATE AMINO TRANSFERASE 38 U/L (10-37); BILIRUBIN,TOTAL 0.3 MG/DL (0.1-1.0); BLOOD UREA NITROGEN 56 MG/DL (7-18); BUN/CREATININE RATIO 22.2 (10.0-20.0); CALCIUM 8.4 MG/DL (8.5-10.1); CHLORIDE 125 MMOL/L (99-107); CREATININE 2.52 MG/DL (0.40-0.90); GLUCOSE 121 MG/DL (70-104); MAGNESIUM 2.4 MG/DL (1.5-2.4); POTASSIUM 4.5 MMOL/L (3.5-5.1); TOTAL CARBON DIOXIDE 20.1 MMOL/L (24-32); eCRCL 23 ML/MIN; eGFR 19 ML/MIN
[2023-04-13 07:33] LABS: SODIUM 159 MMOL/L (135-145)
--- NOTE | 2023-04-13 07:35 | NUR ---
CRITICAL SODIUM 159, DR NOTIFIED NEW ORDERS GIVEN
[2023-04-13] MEDS: K and/or MAG REPLACEMENT MC SCH ×2 (08:00→20:00)
--- NOTE | 2023-04-13 08:17 | NUR ---
This RN has reviewed and agrees w/the SUPERVISOR TANK CLEANING's physical assessment of this patient.
[2023-04-13] MEDS: CefTRIAXone/D5W-Rocephin 1gm 50 ML IV SCH (08:38)
[2023-04-13] MEDS: docusate sod 100mg capsule PO SCH ×2 (08:38→20:00)
[2023-04-13] MEDS: heparin, porcine 5000 units/ml vial SQ SCH ×2 (08:39→20:00)
[2023-04-13] MEDS: dextrose 5%-water 1,000 ML IV SCH ×2 (08:43→22:00)
--- NOTE | 2023-04-13 13:21 | NUR ---
Moises Consult: Nehemias Pride w/ skin intact per EMR. Addendum: 04/13/23 at [address] Amended: Links added.
--- NOTE | 2023-04-13 18:38 | NUR ---
Problems reprioritized. Patient report given, questions answered & plan of care reviewed with JF SIMONS.
[2023-04-13 20:50] LABS: ALBUMIN 2.4 G/DL (3.4-5.0); ANION GAP 12 (8-16); BLOOD UREA NITROGEN 50 MG/DL (7-18); BUN/CREATININE RATIO 21.4 (10.0-20.0); CALCIUM 8.5 MG/DL (8.5-10.1); CHLORIDE 123 MMOL/L (99-107); CREATININE 2.34 MG/DL (0.40-0.90); GLUCOSE 146 MG/DL (70-104); POTASSIUM 3.7 MMOL/L (3.5-5.1); TOTAL CARBON DIOXIDE 22.5 MMOL/L (24-32); eCRCL 25 ML/MIN; eGFR 21 ML/MIN
[2023-04-13] MEDS: insulin glargine (Lantus) pen - multi-dose SQ SCH (21:00)
[2023-04-13 21:06] LABS: SODIUM 157 MMOL/L (135-145)
--- NOTE | 2023-04-13 21:08 | NUR ---
CRITICAL VALUE GIVEN TO STEFANIA MCGOVERN CHARGE NURSE ON PCU. SODIUM 157
[2023-04-14] VITALS (8 sets, daily range): BP systolic 146–210; BP diastolic 63–97; PULSE 75–107; RESP 14–18; TEMP 97.5–99.1; O2SAT 96–98
--- NOTE | 2023-04-14 06:20 | NUR ---
Patient in room PCU 3009. I have received report from JF SIMONS and had the opportunity to ask questions and assume patient care.
[2023-04-14 06:27] LABS: BASOPHILS # (AUTO) 0.1 X10'3 (0-0.2); BASOPHILS % (AUTO) 0.9 % (0-1); EOSINOPHILS # (AUTO) 0.1 X10'3 (0-0.9); EOSINOPHILS % (AUTO) 1.1 % (0-6); HEMATOCRIT 23.5 % (35.0-45.0); HEMOGLOBIN 7.3 g/dl (12.0-16.0); LYMPHOCYTES # (AUTO) 1.5 X10'3 (1.1-4.8); LYMPHOCYTES % (AUTO) 20.5 % (21-51); MEAN CORPUSCULAR HEMOGLOBIN 27.6 PG (27.0-31.0); MEAN CORPUSCULAR HGB CONC 31.3 g/dL (33.0-36.5); MEAN CORPUSCULAR VOLUME 88.1 FL (78-98); MEAN PLATELET VOLUME 8.5 FL (7.4-10.4); MONOCYTES # (AUTO) 0.8 X10'3 (0-0.9); MONOCYTES % (AUTO) 10.3 % (2-12); NEUTROPHILS # (AUTO) 5.1 X10'3 (1.8-7.7); NEUTROPHILS % (AUTO) 67.2 % (42-75); PLATELET COUNT 200 X10'3 (140-440); RED BLOOD COUNT 2.66 X10'6 (4.20-5.60); RED CELL DISTRIBUTION WIDTH 13.5 % (11.5-14.5); WHITE BLOOD COUNT 7.6 X10'3 (4.5-11.0)
[2023-04-14 06:47] LABS: ALANINE AMINOTRANSFERASE 23 U/L (12-78); ALBUMIN 2.2 G/DL (3.4-5.0); ALBUMIN/GLOBULIN RATIO 0.7 (1.1-1.5); ALKALINE PHOSPHATASE 36 IU/L (46-116); ANION GAP 9 (8-16); ASPARTATE AMINO TRANSFERASE 21 U/L (10-37); BILIRUBIN,TOTAL 0.2 MG/DL (0.1-1.0); BLOOD UREA NITROGEN 47 MG/DL (7-18); BUN/CREATININE RATIO 21.9 (10.0-20.0); CALCIUM 8.3 MG/DL (8.5-10.1); CHLORIDE 123 MMOL/L (99-107); CREATININE 2.15 MG/DL (0.40-0.90); GLUCOSE 158 MG/DL (70-104); MAGNESIUM 2.3 MG/DL (1.5-2.4); POTASSIUM 3.4 MMOL/L (3.5-5.1); SODIUM 154 MMOL/L (135-145); TOTAL CARBON DIOXIDE 21.9 MMOL/L (24-32); TOTAL PROTEIN 5.2 G/DL (6.4-8.2); eCRCL 27 ML/MIN; eGFR 23 ML/MIN
[2023-04-14] MEDS: dextrose 5%-water 1,000 ML IV SCH ×3 (07:16→19:52)
[2023-04-14] MEDS: CefTRIAXone/D5W-Rocephin 1gm 50 ML IV SCH (07:17)
[2023-04-14] MEDS: docusate sod 100mg capsule PO SCH ×3 (07:17→19:54)
[2023-04-14] MEDS: heparin, porcine 5000 units/ml vial SQ SCH ×2 (07:18→19:54)
[2023-04-14] MEDS: K and/or MAG REPLACEMENT MC SCH ×2 (08:00→20:00)
[2023-04-14] MEDS ORDERED: traMADol 50MG tablet PO PRN (08:20)
[2023-04-14] MEDS ORDERED: LORazepam 0.5 MG tablet PO PRN (08:20)
[2023-04-14] MEDS: amLODIPine 5mg tablet PO SCH (09:59)
--- NOTE | 2023-04-14 14:45 | NUR ---
PRESSURE ULCER EDUCATION: DEFINITION: A pressure ulcer is an area of skin that breaks down when you stay in one position too long. The constant pressure against the skin reduces the blood flow to that area and the affected tissue dies. CAUSES: "Being bedridden or in a wheelchair "Fragile skin "Having a chronic condition, such as diabetes or vascular disease "Inability to move certain parts of your body without assistance "Older age "Incontinence of urine or stool SYMPTOMS: "A reddened area that DOES NOT turn white when pressed on - this can be the beginning of a pressure ulcer "A blister, deep sore or a crater - these can be advanced pressure ulcers FIRST AID: "Relieve the pressure on this area "Keep the area clean and dry "Call your primary doctor if you see any of the above symptoms "DO NOT massage the area "DO NOT use a donut shaped or ring shaped pillow- these actually interfere with the blood flow and cause complications PREVENTION: "Check for pressure ulcers everyday "Change position at least every two hours to relieve pressure "Use items that help relieve pressure- pillows, sheepskin, foam padding, and powders. "Keep skin clean and dry "Eat healthy well balanced meals "Exercise daily IF YOU SEE ANY OF THESE SYMPTOMS WHILE IN THE HOSPITAL - TELL YOUR NURSE IMMEDIATELY. IF YOU SEE ANY OF THESE SYMPTOMS WHILE AT HOME OR HAVE ANY QUESTIONS OR CONCERNS ABOUT PRESSURE ULCERS - CALL YOUR PRIMARY DOCTOR IMMEDIATELY. Addendum: 04/14/23 at 1445 by Vannessa Farrell RN Amended: Links added.
[2023-04-14] MEDS ORDERED: gabapentin 300mg capsule PO SCH (16:00)
[2023-04-14] MEDS: hydrALAZINE 25 MG tablet PO SCH ×2 (16:46→23:57)
--- NOTE | 2023-04-14 18:59 | NUR ---
Patient in room U 3009. I have received report from JF SIMONS and had the opportunity to ask questions and assume patient care. Addendum: 04/14/23 at 1900 by Miracle Leon RN Problems reprioritized. Patient report given, questions answered & plan of care reviewed with JF SIMONS.
[2023-04-14] MEDS: atorvastatin 20mg tablet PO SCH (19:54)
[2023-04-14] MEDS: insulin glargine (Lantus) pen - multi-dose SQ SCH (21:00)
[2023-04-15] VITALS: BP 178/62; PULSE 67; RESP 16; TEMP 98.6; O2SAT 98
[2023-04-15] MEDS: dextrose 5%-water 1,000 ML IV SCH ×2 (04:50→05:13)
[2023-04-15 06:23] LABS: BASOPHILS % (AUTO) 0.2 % (0-1); EOSINOPHILS # (AUTO) 0.1 X10'3 (0-0.9); EOSINOPHILS % (AUTO) 0.6 % (0-6); HEMATOCRIT 26.6 % (35.0-45.0); HEMOGLOBIN 8.2 g/dl (12.0-16.0); LYMPHOCYTES # (AUTO) 1.6 X10'3 (1.1-4.8); LYMPHOCYTES % (AUTO) 7.8 % (21-51); MEAN CORPUSCULAR HEMOGLOBIN 27.1 PG (27.0-31.0); MEAN CORPUSCULAR HGB CONC 30.8 g/dL (33.0-36.5); MEAN CORPUSCULAR VOLUME 88.1 FL (78-98); MEAN PLATELET VOLUME 9.4 FL (7.4-10.4); MONOCYTES # (AUTO) 1.5 X10'3 (0-0.9); MONOCYTES % (AUTO) 7.3 % (2-12); NEUTROPHILS # (AUTO) 17.8 X10'3 (1.8-7.7); NEUTROPHILS % (AUTO) 84.1 % (42-75); PLATELET COUNT 197 X10'3 (140-440); RED BLOOD COUNT 3.02 X10'6 (4.20-5.60); RED CELL DISTRIBUTION WIDTH 13.5 % (11.5-14.5); WHITE BLOOD COUNT 21.1 X10'3 (4.5-11.0)
[2023-04-15 06:36] LABS: ALANINE AMINOTRANSFERASE 21 U/L (12-78); ALBUMIN 2.2 G/DL (3.4-5.0); ALBUMIN/GLOBULIN RATIO 0.7 (1.1-1.5); ALKALINE PHOSPHATASE 44 IU/L (46-116); ANION GAP 8 (8-16); ASPARTATE AMINO TRANSFERASE 18 U/L (10-37); BILIRUBIN,TOTAL 0.3 MG/DL (0.1-1.0); BLOOD UREA NITROGEN 33 MG/DL (7-18); BUN/CREATININE RATIO 16.5 (10.0-20.0); CALCIUM 8.1 MG/DL (8.5-10.1); CHLORIDE 111 MMOL/L (99-107); GLUCOSE 185 MG/DL (70-104); MAGNESIUM 1.9 MG/DL (1.5-2.4); POTASSIUM 3.8 MMOL/L (3.5-5.1); SODIUM 141 MMOL/L (135-145); TOTAL CARBON DIOXIDE 21.8 MMOL/L (24-32); TOTAL PROTEIN 5.4 G/DL (6.4-8.2); eCRCL 29 ML/MIN; eGFR 25 ML/MIN
[2023-04-15 07:00] VITALS: BP 122/59; PULSE 80; RESP 15; TEMP 98.4; O2SAT 100
--- NOTE | 2023-04-15 07:24 | NUR ---
Patient in room PCU 3009. I have received report from JF SIMONS and had the opportunity to ask questions and assume patient care.
[2023-04-15] MEDS: K and/or MAG REPLACEMENT MC SCH ×2 (08:00→20:00)
[2023-04-15] MEDS: CefTRIAXone/D5W-Rocephin 1gm 50 ML IV SCH (10:54)
[2023-04-15] MEDS: heparin, porcine 5000 units/ml vial SQ SCH ×2 (10:58→20:00)
[2023-04-15] MEDS: amLODIPine 5mg tablet PO SCH (11:32)
[2023-04-15] MEDS: potassium chloride 8mEq ER tablet PO SCH (11:32)
[2023-04-15] MEDS: lisinopril 20mg tablet PO SCH (11:33)
[2023-04-15] MEDS: gabapentin 300mg capsule PO SCH (11:33)
[2023-04-15] MEDS: ferrous sulfate 325mg tablet PO SCH (11:33)
[2023-04-15] MEDS: hydrALAZINE 25 MG tablet PO SCH ×2 (11:33→16:00)
[2023-04-15] MEDS: docusate sod 100mg capsule PO SCH ×2 (11:34→20:00)
[2023-04-15 18:00] VITALS: BP 142/59; PULSE 87; RESP 15; TEMP 97.4; O2SAT 96
--- NOTE | 2023-04-15 19:31 | NUR ---
Problems reprioritized. Patient report given, questions answered & plan of care reviewed with JF SIMONS.
[2023-04-15 20:00] VITALS: RESP 15; O2SAT 96
[2023-04-15 20:16] VITALS: PULSE 87; RESP 16; O2SAT 95
[2023-04-15 20:26] LABS: ALBUMIN 1.9 G/DL (3.4-5.0); ANION GAP 12 (8-16); BLOOD UREA NITROGEN 33 MG/DL (7-18); BUN/CREATININE RATIO 16.6 (10.0-20.0); CALCIUM 8.1 MG/DL (8.5-10.1); CHLORIDE 109 MMOL/L (99-107); CREATININE 1.99 MG/DL (0.40-0.90); GLUCOSE 154 MG/DL (70-104); POTASSIUM 3.8 MMOL/L (3.5-5.1); SODIUM 140 MMOL/L (135-145); TOTAL CARBON DIOXIDE 19.4 MMOL/L (24-32); eCRCL 30 ML/MIN; eGFR 25 ML/MIN
[2023-04-15] MEDS: insulin glargine (Lantus) pen - multi-dose SQ SCH (21:00)
[2023-04-15] MEDS: atorvastatin 20mg tablet PO SCH (21:00)
[2023-04-16] VITALS (9 sets, daily range): BP systolic 95–141; BP diastolic 50–62; PULSE 77–85; RESP 14–20; TEMP 97.3–99.8; O2SAT 94–99
[2023-04-16 06:21] LABS: BASOPHILS % (AUTO) 0.1 % (0-1); EOSINOPHILS # (AUTO) 0.1 X10'3 (0-0.9); EOSINOPHILS % (AUTO) 0.3 % (0-6); HEMATOCRIT 25.9 % (35.0-45.0); HEMOGLOBIN 8.1 g/dl (12.0-16.0); LYMPHOCYTES # (AUTO) 1.9 X10'3 (1.1-4.8); LYMPHOCYTES % (AUTO) 9.8 % (21-51); MEAN CORPUSCULAR HEMOGLOBIN 27.6 PG (27.0-31.0); MEAN CORPUSCULAR HGB CONC 31.4 g/dL (33.0-36.5); MEAN CORPUSCULAR VOLUME 88.1 FL (78-98); MEAN PLATELET VOLUME 9.4 FL (7.4-10.4); MONOCYTES # (AUTO) 1.4 X10'3 (0-0.9); MONOCYTES % (AUTO) 7.3 % (2-12); NEUTROPHILS # (AUTO) 15.8 X10'3 (1.8-7.7); NEUTROPHILS % (AUTO) 82.5 % (42-75); PLATELET COUNT 162 X10'3 (140-440); RED BLOOD COUNT 2.95 X10'6 (4.20-5.60); RED CELL DISTRIBUTION WIDTH 13.5 % (11.5-14.5); WHITE BLOOD COUNT 19.2 X10'3 (4.5-11.0)
[2023-04-16 06:40] LABS: ALANINE AMINOTRANSFERASE 15 U/L (12-78); ALBUMIN 1.7 G/DL (3.4-5.0); ALBUMIN/GLOBULIN RATIO 0.5 (1.1-1.5); ALKALINE PHOSPHATASE 54 IU/L (46-116); ANION GAP 10 (8-16); ASPARTATE AMINO TRANSFERASE 16 U/L (10-37); BILIRUBIN,TOTAL 0.2 MG/DL (0.1-1.0); BLOOD UREA NITROGEN 34 MG/DL (7-18); BUN/CREATININE RATIO 15.5 (10.0-20.0); CHLORIDE 105 MMOL/L (99-107); CREATININE 2.19 MG/DL (0.40-0.90); GLUCOSE 159 MG/DL (70-104); MAGNESIUM 1.9 MG/DL (1.5-2.4); POTASSIUM 3.6 MMOL/L (3.5-5.1); SODIUM 133 MMOL/L (135-145); TOTAL CARBON DIOXIDE 17.7 MMOL/L (24-32); TOTAL PROTEIN 4.9 G/DL (6.4-8.2); eCRCL 27 ML/MIN; eGFR 23 ML/MIN
--- NOTE | 2023-04-16 06:52 | NUR ---
Wound care bed type noted. Pt on strykr bed
[2023-04-16] MEDS: K and/or MAG REPLACEMENT MC SCH ×2 (06:57→20:00)
[2023-04-16] MEDS: potassium chloride 8mEq ER tablet PO SCH (08:00)
[2023-04-16] MEDS: ferrous sulfate 325mg tablet PO SCH (08:00)
[2023-04-16] MEDS: docusate sod 100mg capsule PO SCH ×2 (08:00→20:00)
[2023-04-16] MEDS: lisinopril 20mg tablet PO SCH (08:00)
[2023-04-16] MEDS: hydrALAZINE 25 MG tablet PO SCH ×3 (08:00→16:09)
[2023-04-16] MEDS: CefTRIAXone/D5W-Rocephin 1gm 50 ML IV SCH (08:00)
[2023-04-16] MEDS: dextrose 5%-water 1,000 ML IV SCH ×2 (10:13→15:40)
[2023-04-16] MEDS: gabapentin 300mg capsule PO SCH (10:21)
[2023-04-16] MEDS: amLODIPine 5mg tablet PO SCH (10:22)
[2023-04-16] MEDS: heparin, porcine 5000 units/ml vial SQ SCH ×2 (10:22→20:16)
[2023-04-16] MEDS: atorvastatin 20mg tablet PO SCH (20:13)
[2023-04-16] MEDS: insulin glargine (Lantus) pen - multi-dose SQ SCH (20:43)
[2023-04-16 20:59] LABS: ALBUMIN 1.6 G/DL (3.4-5.0); ANION GAP 12 (8-16); BLOOD UREA NITROGEN 39 MG/DL (7-18); BUN/CREATININE RATIO 15.6 (10.0-20.0); CALCIUM 7.6 MG/DL (8.5-10.1); CHLORIDE 104 MMOL/L (99-107); GLUCOSE 187 MG/DL (70-104); POTASSIUM 3.7 MMOL/L (3.5-5.1); SODIUM 134 MMOL/L (135-145); eCRCL 24 ML/MIN; eGFR 20 ML/MIN
[2023-04-17] VITALS (13 sets, daily range): BP systolic 97–147; BP diastolic 45–74; PULSE 67–86; RESP 13–20; TEMP 97.5–100.9; O2SAT 93–100
[2023-04-17] MEDS: dextrose 5%-water 1,000 ML IV SCH (01:40)
--- NOTE | 2023-04-17 06:40 | NUR ---
Problems reprioritized. Patient report given, questions answered & plan of care reviewed with Luna
--- NOTE | 2023-04-17 06:41 | NUR ---
Patient in room PCU 3009. I have received report from gaye mixon and had the opportunity to ask questions and assume patient care.
[2023-04-17 06:43] LABS: BASOPHILS % (AUTO) 0.1 % (0-1); EOSINOPHILS # (AUTO) 0.2 X10'3 (0-0.9); EOSINOPHILS % (AUTO) 0.8 % (0-6); HEMATOCRIT 28.1 % (35.0-45.0); HEMOGLOBIN 8.5 g/dl (12.0-16.0); LYMPHOCYTES # (AUTO) 1.6 X10'3 (1.1-4.8); LYMPHOCYTES % (AUTO) 7.9 % (21-51); MEAN CORPUSCULAR HEMOGLOBIN 26.9 PG (27.0-31.0); MEAN CORPUSCULAR HGB CONC 30.2 g/dL (33.0-36.5); MEAN PLATELET VOLUME 9.6 FL (7.4-10.4); MONOCYTES # (AUTO) 1.6 X10'3 (0-0.9); MONOCYTES % (AUTO) 7.7 % (2-12); NEUTROPHILS # (AUTO) 16.8 X10'3 (1.8-7.7); NEUTROPHILS % (AUTO) 83.5 % (42-75); PLATELET COUNT 156 X10'3 (140-440); RED BLOOD COUNT 3.16 X10'6 (4.20-5.60); RED CELL DISTRIBUTION WIDTH 13.5 % (11.5-14.5); WHITE BLOOD COUNT 20.1 X10'3 (4.5-11.0)
[2023-04-17 06:55] LABS: ALANINE AMINOTRANSFERASE 11 U/L (12-78); ALBUMIN 1.5 G/DL (3.4-5.0); ALBUMIN/GLOBULIN RATIO 0.4 (1.1-1.5); ALKALINE PHOSPHATASE 69 IU/L (46-116); ANION GAP 15 (8-16); ASPARTATE AMINO TRANSFERASE 14 U/L (10-37); BILIRUBIN,TOTAL 0.2 MG/DL (0.1-1.0); BLOOD UREA NITROGEN 44 MG/DL (7-18); BUN/CREATININE RATIO 16.6 (10.0-20.0); CALCIUM 7.9 MG/DL (8.5-10.1); CHLORIDE 105 MMOL/L (99-107); CREATININE 2.65 MG/DL (0.40-0.90); GLUCOSE 146 MG/DL (70-104); POTASSIUM 3.2 MMOL/L (3.5-5.1); SODIUM 135 MMOL/L (135-145); TOTAL CARBON DIOXIDE 15.1 MMOL/L (24-32); TOTAL PROTEIN 5.6 G/DL (6.4-8.2); eCRCL 22 ML/MIN; eGFR 18 ML/MIN
[2023-04-17] MEDS: docusate sod 100mg capsule PO SCH ×2 (07:15→20:00)
[2023-04-17] MEDS: amLODIPine 5mg tablet PO SCH (07:37)
[2023-04-17] MEDS: hydrALAZINE 25 MG tablet PO SCH ×3 (07:37→16:00)
[2023-04-17] MEDS: lisinopril 20mg tablet PO SCH (07:38)
[2023-04-17] MEDS: potassium chloride 8mEq ER tablet PO SCH (08:00)
[2023-04-17] MEDS: ferrous sulfate 325mg tablet PO SCH (08:00)
[2023-04-17] MEDS: heparin, porcine 5000 units/ml vial SQ SCH ×2 (09:18→20:33)
[2023-04-17] MEDS: CefTRIAXone/D5W-Rocephin 1gm 50 ML IV SCH (09:18)
[2023-04-17] MEDS: gabapentin 300mg capsule PO SCH (09:18)
[2023-04-17] MEDS ORDERED: magnesium 4gm in 100ml NS 100 ML IV PRN (10:35)
[2023-04-17] MEDS ORDERED: potassium Cl 20 mEq SR tablet PO PRN ×2 (10:35)
[2023-04-17] MEDS ORDERED: magnesium 2GM in 50ml NS 50 ML IV PRN (10:35)
[2023-04-17] MEDS ORDERED: magnesium Cl slow-release 64mg tablet PO PRN (10:35)
[2023-04-17] MEDS ORDERED: potassium Cl 40MEQ/1/2NS 520ml 520 ML IV PRN (10:35)
[2023-04-17] MEDS: dextrose 5%-1/2 normal saline 1,000 ML IV SCH (11:16)
[2023-04-17] MEDS ORDERED: Potassium Cl 40 MEQ in sodium chloride 0.45% 500 ML IV ONE (11:25)
--- NOTE | 2023-04-17 11:59 | NUR ---
Initial: Pt admit for metabolic encephalopathy, UTI, and worsening chronic renal failure with severe hyperkalemia. Pt has been on a full liquid diet per ST recs and eating poorly, documented with average 11% PO intake of meals since admit only meeting 10% estimated energy needs and 7% estimated protein needs. Noted pt receiving D5-1/2 NS at 70 mL/hr providing 286 kcal/day. Per verbal d/w RN via TC pt eats very slowly, pockets liquids in her mouth, and requires prompting to swallow. RN also reports pt has difficulty with sipping through straws. D/w dietary to send a sippy cup with meals for assistance. Per RN MD would like diet to be advanced. Noted pt to begin a pureed diet at dinner tonight per ST. IF PO intake does not improve with diet advancement pt would benefit from an Ensure Enlive TID for additional nutrition. Pt received Ensure at previous admit and had great acceptance. IF PO intake does not improve and pt not accepting of ONS, pt would benefit from NGT placement for EN if within POC. LBM 04/16 per EMR. Will continue to follow closely and make recommendations as appropriate. Recommendations: 1) Continue pureed diet with thin liquids per ST recs 2) Consider Ensure Enlive TID, pending trends in PO intake with diet advancement 3) Encourage PO intake and assist with meals; sippy cup TID 4) Routine bowel care 5) Scaled weight this admit; subsequent weekly scaled weights 6) Monitor need for nutrition support Addendum: 04/17/23 at [address] Amended: Links added.
[2023-04-17] MEDS: metroNIDAZOLE-Flagyl 500mg/NS 100 ML IV SCH (16:35)
[2023-04-17 20:27] LABS: ALBUMIN 1.6 G/DL (3.4-5.0); ANION GAP 15 (8-16); BLOOD UREA NITROGEN 47 MG/DL (7-18); BUN/CREATININE RATIO 17.9 (10.0-20.0); CALCIUM 7.9 MG/DL (8.5-10.1); CHLORIDE 104 MMOL/L (99-107); CREATININE 2.62 MG/DL (0.40-0.90); GLUCOSE 171 MG/DL (70-104); POTASSIUM 3.5 MMOL/L (3.5-5.1); SODIUM 135 MMOL/L (135-145); TOTAL CARBON DIOXIDE 15.9 MMOL/L (24-32); eCRCL 22 ML/MIN; eGFR 18 ML/MIN
[2023-04-17] MEDS: K and/or MAG REPLACEMENT MC SCH (20:27)
[2023-04-17] MEDS: atorvastatin 20mg tablet PO SCH (20:33)
[2023-04-17] MEDS: insulin glargine (Lantus) pen - multi-dose SQ SCH (20:34)
[2023-04-18] VITALS (9 sets, daily range): BP systolic 93–129; BP diastolic 41–55; PULSE 61–86; RESP 12–18; TEMP 97.7–98.8; O2SAT 90–100
[2023-04-18] MEDS ORDERED: metroNIDAZOLE-Flagyl 500mg/NS 100 ML IV SCH
[2023-04-18] MEDS: metroNIDAZOLE-Flagyl 500mg/NS 100 ML IV SCH ×4 (00:17→23:49)
[2023-04-18] MEDS: dextrose 5%-1/2 normal saline 1,000 ML IV SCH ×2 (00:48→15:30)
--- NOTE | 2023-04-18 06:30 | NUR ---
Patient in room PCU 3009. I have received report from MAINE Carrasco and had the opportunity to ask questions and assume patient care.
--- NOTE | 2023-04-18 06:49 | NUR ---
Problems reprioritized. Patient report given, questions answered & plan of care reviewed with renato rn.
[2023-04-18] MEDS: hydrALAZINE 25 MG tablet PO SCH ×4 (08:00→23:54)
[2023-04-18] MEDS: amLODIPine 5mg tablet PO SCH (08:00)
[2023-04-18] MEDS: lisinopril 20mg tablet PO SCH (08:00)
[2023-04-18 08:22] LABS: BASOPHILS % (AUTO) 0.2 % (0-1); EOSINOPHILS # (AUTO) 0.2 X10'3 (0-0.9); EOSINOPHILS % (AUTO) 1.4 % (0-6); HEMOGLOBIN 8.2 g/dl (12.0-16.0); LYMPHOCYTES % (AUTO) 6.1 % (21-51); MEAN CORPUSCULAR HEMOGLOBIN 26.8 PG (27.0-31.0); MEAN CORPUSCULAR HGB CONC 30.5 g/dL (33.0-36.5); MEAN CORPUSCULAR VOLUME 87.9 FL (78-98); MEAN PLATELET VOLUME 10.5 FL (7.4-10.4); MONOCYTES # (AUTO) 1.9 X10'3 (0-0.9); MONOCYTES % (AUTO) 10.9 % (2-12); NEUTROPHILS # (AUTO) 14.1 X10'3 (1.8-7.7); NEUTROPHILS % (AUTO) 81.4 % (42-75); PLATELET COUNT 187 X10'3 (140-440); RED BLOOD COUNT 3.07 X10'6 (4.20-5.60); RED CELL DISTRIBUTION WIDTH 13.9 % (11.5-14.5); WHITE BLOOD COUNT 17.3 X10'3 (4.5-11.0)
[2023-04-18] MEDS ORDERED: docusate sod 100mg capsule PO PRN (08:30)
[2023-04-18 08:47] LABS: ACANTHOCYTES 1+; BURR CELLS 2+; ELLIPTOCYTES FEW; LARGE PLATELETS FEW; PLATELET ESTIMATE NORMAL
[2023-04-18 09:28] LABS: ALBUMIN 1.6 G/DL (3.4-5.0); ANION GAP 13 (8-16); BLOOD UREA NITROGEN 52 MG/DL (7-18); BUN/CREATININE RATIO 19.3 (10.0-20.0); CALCIUM 8.1 MG/DL (8.5-10.1); CHLORIDE 106 MMOL/L (99-107); CREATININE 2.69 MG/DL (0.40-0.90); GLUCOSE 190 MG/DL (70-104); SODIUM 134 MMOL/L (135-145); TOTAL CARBON DIOXIDE 15.4 MMOL/L (24-32); eCRCL 22 ML/MIN; eGFR 18 ML/MIN
[2023-04-18] MEDS: K and/or MAG REPLACEMENT MC SCH ×2 (09:48→20:00)
[2023-04-18] MEDS: gabapentin 300mg capsule PO SCH (10:30)
[2023-04-18] MEDS: ferrous sulfate 325mg tablet PO SCH (10:30)
[2023-04-18] MEDS: potassium chloride 8mEq ER tablet PO SCH (10:30)
[2023-04-18] MEDS: CefTRIAXone/D5W-Rocephin 1gm 50 ML IV SCH (10:30)
[2023-04-18] MEDS: heparin, porcine 5000 units/ml vial SQ SCH ×2 (10:30→20:11)
[2023-04-18] MEDS: HYDROcodone/acetaminophen 10/325mg tab PO PRN (10:39)
[2023-04-18 15:22] LABS: C DIFF ANTIGEN POSITIVE (NEGATIVE); C DIFF SPECIMEN=DIARRHEA? ACCEPTABLE
[2023-04-18] MEDS: vancomycin 125mg/5ml ORAL solution 5ml UD oral syringe PO SCH (20:08)
[2023-04-18] MEDS: atorvastatin 20mg tablet PO SCH (20:11)
[2023-04-18] MEDS: insulin glargine (Lantus) pen - multi-dose SQ SCH (20:24)
[2023-04-19 02:00] VITALS: BP 107/49; PULSE 68; RESP 18; TEMP 98.4; O2SAT 99
[2023-04-19] MEDS: vancomycin 125mg/5ml ORAL solution 5ml UD oral syringe PO SCH ×2 (02:04→08:57)
[2023-04-19] MEDS: dextrose 5%-1/2 normal saline 1,000 ML IV SCH (04:50)
[2023-04-19 06:00] VITALS: BP 107/53; PULSE 77; RESP 12; TEMP 98.9; O2SAT 100
--- NOTE | 2023-04-19 06:20 | NUR ---
Patient in room PCU 3009. I have received report from MAINE Gtz and had the opportunity to ask questions and assume patient care.
[2023-04-19 06:30] VITALS: O2SAT 100
--- NOTE | 2023-04-19 06:34 | NUR ---
Problems reprioritized. Patient report given, questions answered & plan of care reviewed with Grecia
[2023-04-19 07:00] LABS: ALBUMIN 1.6 G/DL (3.4-5.0); ANION GAP 12 (8-16); BLOOD UREA NITROGEN 47 MG/DL (7-18); BUN/CREATININE RATIO 19.5 (10.0-20.0); CALCIUM 8.2 MG/DL (8.5-10.1); CHLORIDE 107 MMOL/L (99-107); CREATININE 2.41 MG/DL (0.40-0.90); GLUCOSE 146 MG/DL (70-104); POTASSIUM 3.8 MMOL/L (3.5-5.1); SODIUM 135 MMOL/L (135-145); TOTAL CARBON DIOXIDE 15.9 MMOL/L (24-32); eCRCL 24 ML/MIN; eGFR 20 ML/MIN
[2023-04-19] MEDS: K and/or MAG REPLACEMENT MC SCH (07:16)
[2023-04-19] MEDS: hydrALAZINE 25 MG tablet PO SCH (07:16)
[2023-04-19] MEDS: amLODIPine 5mg tablet PO SCH (07:17)
[2023-04-19] MEDS: lisinopril 20mg tablet PO SCH (07:17)
[2023-04-19 08:45] VITALS: RESP 14; O2SAT 100
[2023-04-19] MEDS: CefTRIAXone/D5W-Rocephin 1gm 50 ML IV SCH (08:55)
[2023-04-19] MEDS: ferrous sulfate 325mg tablet PO SCH (08:56)
[2023-04-19] MEDS: HYDROcodone/acetaminophen 10/325mg tab PO PRN (08:56)
[2023-04-19] MEDS: heparin, porcine 5000 units/ml vial SQ SCH (08:57)
[2023-04-19] MEDS: gabapentin 300mg capsule PO SCH (08:57)
[2023-04-19] MEDS: potassium chloride 8mEq ER tablet PO SCH (08:57)
[2023-04-19] MEDS: metroNIDAZOLE-Flagyl 500mg/NS 100 ML IV SCH (09:34)
[2023-04-19 10:00] VITALS: BP 101/44; PULSE 67; RESP 14; TEMP 98.7; O2SAT 98
[2023-04-19] MEDS ORDERED: VANC5VIA PO (10:59)
[2023-04-19 11:29] VITALS: O2SAT 98
[2023-04-19 11:30] LABS: BASOPHILS # (AUTO) 0.1 X10'3 (0-0.2); BASOPHILS % (AUTO) 0.4 % (0-1); EOSINOPHILS # (AUTO) 0.2 X10'3 (0-0.9); HEMATOCRIT 26.8 % (35.0-45.0); HEMOGLOBIN 8.2 g/dl (12.0-16.0); LYMPHOCYTES # (AUTO) 1.3 X10'3 (1.1-4.8); LYMPHOCYTES % (AUTO) 10.6 % (21-51); MEAN CORPUSCULAR HEMOGLOBIN 27.4 PG (27.0-31.0); MEAN CORPUSCULAR HGB CONC 30.6 g/dL (33.0-36.5); MEAN CORPUSCULAR VOLUME 89.8 FL (78-98); MEAN PLATELET VOLUME 10.1 FL (7.4-10.4); MONOCYTES # (AUTO) 1.7 X10'3 (0-0.9); MONOCYTES % (AUTO) 14.5 % (2-12); NEUTROPHILS # (AUTO) 8.6 X10'3 (1.8-7.7); NEUTROPHILS % (AUTO) 72.5 % (42-75); PLATELET COUNT 187 X10'3 (140-440); RED BLOOD COUNT 2.99 X10'6 (4.20-5.60); RED CELL DISTRIBUTION WIDTH 13.9 % (11.5-14.5); WHITE BLOOD COUNT 11.9 X10'3 (4.5-11.0)
--- NOTE | 2023-04-19 12:45 | NUR ---
DC inst provided to pt's son. IV DC'd, tip intact. All belongings sent w/pt. Son brought pt's own WC & transferred pt into the WC & is wheeling pt home (Son states they live approx 2 blocks away).
[2023-04-19] MEDS ORDERED: metroNIDAZOLE 500mg tablet PO SCH (16:00)
[2023-04-20 08:19] LABS: C DIFFICILE TOXINS A&B POSITIVE (Neg)
[2023-04-21] MEDS ORDERED: SERT-432 PO (05:54)
[2023-04-21] MEDS ORDERED: ONDA-103 PO (05:54)
== END 2023-04-19 12:48 | disposition home health service (06) | DRG 426 ==
LOC: ER 18:29 → ED HOLD 04-12 00:17 → EDBEDREQ 04-12 06:48 → PCU 3S 04-12 08:48
PROVIDERS: ADMIT Family Medicine; ATTEND Internal Medicine
DX: E87.0 Hyperosmolality and hypernatremia (principal); N17.0 Acute kidney failure with tubular necrosis; J69.0 Pneumonitis due to inhalation of food and vomit; G93.41 Metabolic encephalopathy; E43 Unspecified severe protein-calorie malnutrition; A04.72 Enterocolitis due to Clostridium difficile, not specified as recurrent; E87.20 Acidosis, unspecified; E11.22 Type 2 diabetes mellitus with diabetic chronic kidney disease; E86.0 Dehydration; D64.9 Anemia, unspecified; E78.5 Hyperlipidemia, unspecified; E87.5 Hyperkalemia; I12.9 Hypertensive chronic kidney disease with stage 1 through stage 4 chronic kidney disease, or unspecified chronic kidney disease; N39.0 Urinary tract infection, site not specified; E11.42 Type 2 diabetes mellitus with diabetic polyneuropathy; G89.29 Other chronic pain; N18.30 Chronic kidney disease, stage 3 unspecified; I69.351 Hemiplegia and hemiparesis following cerebral infarction affecting right dominant side; Z87.891 Personal history of nicotine dependence; Z79.899 Other long term (current) drug therapy; Z79.82 Long term (current) use of aspirin; Z87.01 Personal history of pneumonia (recurrent); Z88.6 Allergy status to analgesic agent; I69.391 Dysphagia following cerebral infarction; I69.320 Aphasia following cerebral infarction
CPT/HCPCS: 36415; 36600; 70450; 80048; 80053; 81001; 82803; 82948; 83036; 83605; 83690; 83735; 83880; 84145; 84484; 85008; 85018; 85025; 87040; 87081; 87088; 87324; 87449; 92508; 92616; 93005; 94640; 94760; 96365; 96375; 97110; 97161; 97530; 99285; A6212; A6213; A6250; C1758; G0378; J0360; J0610; J0696; J1644; J1815; J2310; J3480; J3490; J7030; J7070

== ENCOUNTER 2023-08-15 16:39 | Inpatient (IN) | payer MEDICAID ==
[~2023-08-15] VITALS: Ht 170.2 cm; Wt 79.0 kg
[~2023-08-15 16:39] MED LIST changes: -ALBU8HFA PO; +AMLO10TA PO; -ASPI81TA52 PO; +ATOR40TA PO; -CETI10TA19 PO; -CHOL20002 PO; -FEXO-271 PO; +HYDR-4070 PO; +INSU100V9 SQ; +LORA-269 PO; -MAGN250T11 PO; +ONDA-103 PO; +POTA8TAB69 PO; -POTA99CA PO; +SERT-432 PO; +TRAM50TA2 PO; +VANC5VIA PO; -calcium PO
[2023-08-15 17:55] LABS: BASOPHILS # (AUTO) 0.2 X10'3 (0-0.2); BASOPHILS % (AUTO) 1.8 % (0-1); EOSINOPHILS # (AUTO) 0.3 X10'3 (0-0.9); EOSINOPHILS % (AUTO) 2.5 % (0-6); HEMATOCRIT 28.5 % (35.0-45.0); HEMOGLOBIN 9.3 g/dl (12.0-16.0); MEAN CORPUSCULAR HEMOGLOBIN 28.7 PG (27.0-31.0); MEAN CORPUSCULAR HGB CONC 32.7 g/dL (33.0-36.5); MEAN CORPUSCULAR VOLUME 87.7 FL (78-98); MEAN PLATELET VOLUME 7.6 FL (7.4-10.4); MONOCYTES # (AUTO) 1.1 X10'3 (0-0.9); MONOCYTES % (AUTO) 9.1 % (2-12); NEUTROPHILS # (AUTO) 8.7 X10'3 (1.8-7.7); NEUTROPHILS % (AUTO) 70.6 % (42-75); PLATELET COUNT 308 X10'3 (140-440); RED BLOOD COUNT 3.25 X10'6 (4.20-5.60); RED CELL DISTRIBUTION WIDTH 15.8 % (11.5-14.5); WHITE BLOOD COUNT 12.3 X10'3 (4.5-11.0)
[2023-08-15 18:17] LABS: ALANINE AMINOTRANSFERASE 18 U/L (12-78); ALBUMIN 1.7 G/DL (3.4-5.0); ALBUMIN/GLOBULIN RATIO 0.4 (1.1-1.5); ALKALINE PHOSPHATASE 87 IU/L (46-116); ANION GAP 12 (8-16); ASPARTATE AMINO TRANSFERASE 29 U/L (10-37); BILIRUBIN,TOTAL 0.2 MG/DL (0.1-1.0); BLOOD UREA NITROGEN 47 MG/DL (7-18); BUN/CREATININE RATIO 40.2 (10.0-20.0); CALCIUM 8.8 MG/DL (8.5-10.1); CHLORIDE 112 MMOL/L (99-107); CREATININE 1.17 MG/DL (0.40-0.90); GLUCOSE 120 MG/DL (70-104); POTASSIUM 3.8 MMOL/L (3.5-5.1); PRO BRAIN NATRIURETIC PEPTIDE 3898 PG/ML (0-125); SODIUM 143 MMOL/L (135-145); TOTAL CARBON DIOXIDE 19.2 MMOL/L (24-32); TOTAL PROTEIN 5.6 G/DL (6.4-8.2); eCRCL 48 ML/MIN; eGFR 47 ML/MIN
[2023-08-15] MEDS ORDERED: normal saline 1000ML IV soln IVB ONE (19:40)
[2023-08-15 20:05] LABS: APTT 29 SECONDS (22-32); INR 0.9 INR; PROTHROMBIN TIME 10.1 SECONDS (9.0-12.0)
[2023-08-15 20:06] LABS: BILIRUBIN,URINE NEGATIVE (Neg); CLARITY,URINE CLOUDY (Clear); COLOR,URINE YELLOW (Yellow); GLUCOSE, URINE NEGATIVE (Neg); KETONES,URINE NEGATIVE (Neg); LEUKOCYTE ESTERASE ,URINE SMALL (Neg); NITRITES, URINE NEGATIVE (Neg); OCCULT BLOOD,URINE SMALL (Neg); PROTEIN,URINE 100 mg/dl (Neg); UROBILINOGEN,URINE 0.2 E.U/dL (0.2-1.0)
[2023-08-15 20:12] LABS: UA COLLECTION TYPE FOLEY CATH
[2023-08-15 20:14] LABS: BACTERIA,URINE 3+ /HPF (Neg); YEAST MANY /HPF (NEGATIVE)
[2023-08-15 20:16] LABS: WBC,URINE 30-50 /HPF (0-4)
[2023-08-15 20:17] LABS: MUCUS STRANDS NONE SEEN /LPF (Neg); SQUAMOUS EPITHELIAL CELL,UR NONE SEEN /LPF (FEW)
[2023-08-15] MEDS ORDERED: CefTRIAXone/D5W-Rocephin 1gm 50 ML IV ONE (20:45)
[2023-08-15] MEDS ORDERED: HYDROmorphone inj. 0.5 MG/0.5 ML DISP.SYRIN IV PRN (22:10)
[2023-08-15] MEDS ORDERED: acetaminophen 325mg tablet PEG PRN (22:10)
[2023-08-15] MEDS ORDERED: glucagon, human recombinant 1mg kit SUBCUT PRN (22:10)
[2023-08-15] MEDS ORDERED: potassium Cl 20 mEq SR tablet PEG PRN ×2 (22:10)
[2023-08-15] MEDS ORDERED: magnesium 2GM in 50ml NS 50 ML IV PRN (22:10)
[2023-08-15] MEDS ORDERED: albuterol 2.5 MG/3 ML nebule NEB PRN (22:10)
[2023-08-15] MEDS ORDERED: ondansetron/PF 4mg/2ml inj IV PRN (22:10)
[2023-08-15] MEDS ORDERED: magnesium 4gm in 100ml NS 100 ML IV PRN (22:10)
[2023-08-15] MEDS ORDERED: ipratropium/albuterol 3ml nebule NEB PRN (22:10)
[2023-08-15] MEDS ORDERED: potassium Cl 40MEQ/1/2NS 520ml 520 ML IV PRN (22:10)
[2023-08-15] MEDS ORDERED: bisacodyl 10mg suppository rectal RC PRN (22:10)
[2023-08-15] MEDS ORDERED: MESSAGE TO PHARMACY PO ONE (22:10)
[2023-08-15] MEDS ORDERED: dextrose 50%-water 50ml dispensing syringe IV PRN ×2 (22:10)
[2023-08-15] MEDS ORDERED: insulin Lispro (HumaLOG) vial - multi-dose SQ SCH (22:10)
[2023-08-15] MEDS ORDERED: DEXTROSE 15 GM of carb/4 tabs (each vial/BOTTLE has 4 tablets) PO PRN ×2 (22:10)
[2023-08-15] MEDS: normal saline 1000ml 1,000 ML IV SCH (22:38)
[2023-08-15 23:22] VITALS: PULSE 78; RESP 18; O2SAT 98
[2023-08-16] MEDS: heparin, porcine 5000 units/ml vial SQ SCH ×3 (00:10→19:26)
[2023-08-16 04:18] LABS: BASOPHILS # (AUTO) 0.1 X10'3 (0-0.2); EOSINOPHILS # (AUTO) 0.2 X10'3 (0-0.9); EOSINOPHILS % (AUTO) 1.9 % (0-6); HEMATOCRIT 26.1 % (35.0-45.0); HEMOGLOBIN 8.7 g/dl (12.0-16.0); LYMPHOCYTES # (AUTO) 1.7 X10'3 (1.1-4.8); LYMPHOCYTES % (AUTO) 17.4 % (21-51); MEAN CORPUSCULAR HGB CONC 33.2 g/dL (33.0-36.5); MEAN CORPUSCULAR VOLUME 87.4 FL (78-98); MEAN PLATELET VOLUME 7.6 FL (7.4-10.4); MONOCYTES % (AUTO) 10.2 % (2-12); NEUTROPHILS % (AUTO) 69.5 % (42-75); PLATELET COUNT 269 X10'3 (140-440); RED BLOOD COUNT 2.98 X10'6 (4.20-5.60); RED CELL DISTRIBUTION WIDTH 15.5 % (11.5-14.5)
[2023-08-16 04:20] LABS: ALANINE AMINOTRANSFERASE 14 U/L (12-78); ALBUMIN 1.5 G/DL (3.4-5.0); ALBUMIN/GLOBULIN RATIO 0.4 (1.1-1.5); ALKALINE PHOSPHATASE 77 IU/L (46-116); ANION GAP 10 (8-16); ASPARTATE AMINO TRANSFERASE 17 U/L (10-37); BILIRUBIN,TOTAL 0.2 MG/DL (0.1-1.0); BLOOD UREA NITROGEN 41 MG/DL (7-18); BUN/CREATININE RATIO 42.3 (10.0-20.0); CALCIUM 8.5 MG/DL (8.5-10.1); CHLORIDE 115 MMOL/L (99-107); CHOL/HDL RATIO 2.8 (0.00-4.99); CHOLESTEROL 113 MG/DL (0-200); CREATININE 0.97 MG/DL (0.40-0.90); GLUCOSE 114 MG/DL (70-104); HDL CHOLESTEROL 41 MG/DL (35-60); LDL CHOLESTEROL 45 MG/DL (50-100); POTASSIUM 3.6 MMOL/L (3.5-5.1); SODIUM 143 MMOL/L (135-145); TOTAL CARBON DIOXIDE 17.7 MMOL/L (24-32); TRIGLYCERIDES 201 MG/DL (20-135); eCRCL 58 ML/MIN; eGFR 58 ML/MIN
[2023-08-16 04:53] LABS: HEMOGLOBIN A1C 5.7 % (4.5-6.2)
[2023-08-16] MEDS: HYDROmorphone/PF 0.2 MG/ML SYRINGE IV PRN ×2 (06:03→10:25)
[2023-08-16] MEDS: K and/or MAG REPLACEMENT MC SCH (08:00)
[2023-08-16] MEDS ORDERED: docusate sod 100mg capsule PO SCH (08:00)
[2023-08-16 10:00] VITALS: BP 159/67; PULSE 87; RESP 20; TEMP 97.2; O2SAT 99
[2023-08-16] MEDS ORDERED: LidoCAINE 2% Topical Jelly 11mL syringe TOP ONE (12:20)
[2023-08-16] MEDS ORDERED: HYDROcodone/acetaminophen 5mg/325mg tablet PO PRN (13:05)
[2023-08-16] MEDS ORDERED: acetaminophen 325mg/10.15ml oral unit dose solution PO PRN (13:05)
[2023-08-16] MEDS ORDERED: morphine 2 MG/ML inj. syringe IV PRN (13:05)
[2023-08-16 13:30] VITALS: PULSE 86; RESP 18; O2SAT 98
[2023-08-16] MEDS: normal saline 1000ml 1,000 ML IV SCH (17:00)
[2023-08-16 18:00] VITALS: BP 172/89; PULSE 95; RESP 14; TEMP 98.5; O2SAT 99
[2023-08-16 19:00] VITALS: RESP 18; O2SAT 96
[2023-08-16] MEDS: insulin glargine (Lantus) pen - multi-dose SQ SCH (21:00)
[2023-08-16 22:09] VITALS: BP 175/78; PULSE 94; RESP 17; TEMP 98.2; O2SAT 96
[2023-08-16 23:33] VITALS: PULSE 89; RESP 16; O2SAT 98
[2023-08-17] VITALS (7 sets, daily range): BP systolic 147–188; BP diastolic 58–102; PULSE 75–90; RESP 14–20; TEMP 98.5–100.3; O2SAT 93–98
[2023-08-17 05:33] LABS: RED BLOOD COUNT 2.69 X10'6 (4.20-5.60); WHITE BLOOD COUNT 8.5 X10'3 (4.5-11.0)
[2023-08-17 05:37] LABS: BASOPHILS % (AUTO) 0.6 % (0-1); EOSINOPHILS # (AUTO) 0.2 X10'3 (0-0.9); HEMATOCRIT 23.4 % (35.0-45.0); HEMOGLOBIN 7.8 g/dl (12.0-16.0); LYMPHOCYTES # (AUTO) 1.4 X10'3 (1.1-4.8); MEAN CORPUSCULAR HGB CONC 33.2 g/dL (33.0-36.5); MEAN CORPUSCULAR VOLUME 87.3 FL (78-98); MEAN PLATELET VOLUME 7.5 FL (7.4-10.4); MONOCYTES # (AUTO) 0.8 X10'3 (0-0.9); NEUTROPHILS # (AUTO) 6.1 X10'3 (1.8-7.7); NEUTROPHILS % (AUTO) 71.4 % (42-75); PLATELET COUNT 231 X10'3 (140-440); RED CELL DISTRIBUTION WIDTH 15.9 % (11.5-14.5)
[2023-08-17 05:55] LABS: ALANINE AMINOTRANSFERASE 15 U/L (12-78); ALBUMIN 1.4 G/DL (3.4-5.0); ALBUMIN/GLOBULIN RATIO 0.4 (1.1-1.5); ALKALINE PHOSPHATASE 68 IU/L (46-116); ANION GAP 11 (8-16); ASPARTATE AMINO TRANSFERASE 16 U/L (10-37); BILIRUBIN,TOTAL 0.1 MG/DL (0.1-1.0); BLOOD UREA NITROGEN 36 MG/DL (7-18); CALCIUM 8.2 MG/DL (8.5-10.1); CHLORIDE 116 MMOL/L (99-107); GLUCOSE 123 MG/DL (70-104); POTASSIUM 3.4 MMOL/L (3.5-5.1); SODIUM 145 MMOL/L (135-145); TOTAL CARBON DIOXIDE 18.3 MMOL/L (24-32); TOTAL PROTEIN 4.6 G/DL (6.4-8.2); eCRCL 56 ML/MIN; eGFR 56 ML/MIN
[2023-08-17] MEDS: heparin, porcine 5000 units/ml vial SQ SCH ×3 (06:40→16:36)
[2023-08-17] MEDS: K and/or MAG REPLACEMENT MC SCH ×3 (06:40→20:00)
[2023-08-17] MEDS ORDERED: acetaminophen 325mg/10.15ml oral unit dose solution PEG PRN ×2 (07:03→07:04)
[2023-08-17] MEDS ORDERED: HYDROcodone/acetaminophen 7.5MG/325MG per 15ml UD CUP PEG PRN (07:05)
[2023-08-17] MEDS ORDERED: ARGININE/GLUTAMINE/CALCIUM BMB (JUVEN 19.3GM PKT) 1 EACH POWD.PACK PO SCH (07:30)
[2023-08-17] MEDS: ARGININE/GLUTAMINE/CALCIUM BMB (JUVEN 19.3GM PKT) 1 EACH POWD.PACK PEG SCH ×2 (07:30→12:30)
[2023-08-17] MEDS: CefTRIAXone/D5W-Rocephin 1gm 50 ML IV SCH (09:28)
[2023-08-17] MEDS: normal saline 1000ml 1,000 ML IV SCH (09:31)
[2023-08-17] MEDS: HYDROcodone/acetaminophen 7.5MG/325MG per 15ml UD CUP PEG PRN (09:46)
[2023-08-17] MEDS: morphine 2 MG/ML inj. syringe IV PRN ×2 (13:32→19:50)
[2023-08-17] MEDS: lisinopril 20mg tablet PO SCH (15:20)
[2023-08-17] MEDS ORDERED: haloperidol 1mg tablet PO ONE ×2 (15:50→16:10)
[2023-08-17] MEDS ORDERED: NYST15CR36 TOP (16:06)
[2023-08-17] MEDS ORDERED: CHOL4PAC19 PO (16:06)
[2023-08-17] MEDS ORDERED: MULT9LIQ9 PO (16:06)
[2023-08-17] MEDS ORDERED: SODI650T29 PO (16:06)
[2023-08-17] MEDS ORDERED: LOP12.5T PO (16:06)
[2023-08-17] MEDS ORDERED: INSU100V49 SQ (16:06)
[2023-08-17] MEDS ORDERED: SODI473S26 TP (16:06)
[2023-08-17] MEDS ORDERED: ESOM20CA PO (16:06)
[2023-08-17] MEDS: metoprolol tartrate 25mg tablet PO SCH (19:44)
[2023-08-17] MEDS: insulin glargine (Lantus) pen - multi-dose SQ SCH (21:00)
[2023-08-18] MEDS: morphine 2 MG/ML inj. syringe IV PRN ×2 (00:19→04:24)
[2023-08-18] MEDS: heparin, porcine 5000 units/ml vial SQ SCH ×3 (00:19→17:23)
[2023-08-18 06:00] VITALS: BP 140/100; PULSE 82; RESP 16; TEMP 98.2; O2SAT 100
[2023-08-18 06:21] LABS: BASOPHILS # (AUTO) 0.1 X10'3 (0-0.2); BASOPHILS % (AUTO) 0.9 % (0-1); EOSINOPHILS # (AUTO) 0.3 X10'3 (0-0.9); EOSINOPHILS % (AUTO) 2.7 % (0-6); HEMATOCRIT 25.9 % (35.0-45.0); HEMOGLOBIN 8.6 g/dl (12.0-16.0); MEAN CORPUSCULAR HEMOGLOBIN 29.3 PG (27.0-31.0); MEAN CORPUSCULAR HGB CONC 33.4 g/dL (33.0-36.5); MEAN CORPUSCULAR VOLUME 87.9 FL (78-98); MEAN PLATELET VOLUME 8.1 FL (7.4-10.4); MONOCYTES % (AUTO) 9.4 % (2-12); NEUTROPHILS # (AUTO) 7.5 X10'3 (1.8-7.7); PLATELET COUNT 238 X10'3 (140-440); RED BLOOD COUNT 2.94 X10'6 (4.20-5.60); RED CELL DISTRIBUTION WIDTH 15.9 % (11.5-14.5); WHITE BLOOD COUNT 10.9 X10'3 (4.5-11.0)
[2023-08-18 06:57] LABS: % IRON SATURATION 19 % (11-46); IRON 29 UG/DL (49-151); TOTAL IRON BINDING CAPACITY 156 UG/DL (259-388)
[2023-08-18 06:59] LABS: ALANINE AMINOTRANSFERASE 22 U/L (12-78); ALBUMIN 1.5 G/DL (3.4-5.0); ALBUMIN/GLOBULIN RATIO 0.4 (1.1-1.5); ALKALINE PHOSPHATASE 80 IU/L (46-116); ANION GAP 11 (8-16); ASPARTATE AMINO TRANSFERASE 16 U/L (10-37); BILIRUBIN,TOTAL 0.2 MG/DL (0.1-1.0); BLOOD UREA NITROGEN 40 MG/DL (7-18); BUN/CREATININE RATIO 46.5 (10.0-20.0); CALCIUM 8.2 MG/DL (8.5-10.1); CHLORIDE 113 MMOL/L (99-107); CREATININE 0.86 MG/DL (0.40-0.90); GLUCOSE 156 MG/DL (70-104); MAGNESIUM 1.9 MG/DL (1.5-2.4); POTASSIUM 4.3 MMOL/L (3.5-5.1); SODIUM 144 MMOL/L (135-145); TOTAL CARBON DIOXIDE 20.3 MMOL/L (24-32); TOTAL PROTEIN 5.1 G/DL (6.4-8.2); eCRCL 65 ML/MIN; eGFR 67 ML/MIN
[2023-08-18] MEDS: normal saline 1000ml 1,000 ML IV SCH ×2 (07:12→21:11)
[2023-08-18] MEDS: ARGININE/GLUTAMINE/CALCIUM BMB (JUVEN 19.3GM PKT) 1 EACH POWD.PACK PEG SCH ×2 (07:30→12:30)
[2023-08-18 08:03] LABS: PREALBUMIN 21.1 MG/DL (19-36)
[2023-08-18] MEDS: CefTRIAXone/D5W-Rocephin 1gm 50 ML IV SCH (09:45)
[2023-08-18] MEDS: MULTIVIT-MIN/FERROUS GLUCONATE 9 MG/15 ML LIQUID PO SCH (10:01)
[2023-08-18] MEDS: ferrous sulfate 325mg tablet PO SCH (10:01)
[2023-08-18] MEDS: atorvastatin 20mg tablet PO SCH (10:01)
[2023-08-18] MEDS: metoprolol tartrate 25mg tablet PO SCH ×2 (10:06→20:38)
[2023-08-18] MEDS: amLODIPine 5mg tablet PO SCH (10:06)
[2023-08-18] MEDS: lisinopril 20mg tablet PO SCH (10:43)
[2023-08-18] MEDS: K and/or MAG REPLACEMENT MC SCH ×2 (10:44→20:00)
[2023-08-18] MEDS ORDERED: haloperidol 1mg tablet PO PRN (11:05)
[2023-08-18 12:04] VITALS: PULSE 68; RESP 16; O2SAT 99
[2023-08-18] MEDS: HYDROcodone/acetaminophen 7.5MG/325MG per 15ml UD CUP PEG PRN ×2 (17:26→21:09)
[2023-08-18 18:00] VITALS: BP 194/101; PULSE 82; RESP 19; TEMP 98; O2SAT 98
[2023-08-18 20:00] VITALS: RESP 18; O2SAT 96
[2023-08-18 20:03] VITALS: PULSE 78; RESP 16; O2SAT 98
[2023-08-18] MEDS: insulin glargine (Lantus) pen - multi-dose SQ SCH (21:00)
[2023-08-18 22:00] VITALS: BP 162/83; PULSE 65; RESP 20; TEMP 98.5; O2SAT 95
[2023-08-19] MEDS: heparin, porcine 5000 units/ml vial SQ SCH ×3 (00:42→15:45)
[2023-08-19] MEDS: normal saline 1000ml 1,000 ML IV SCH ×2 (00:43→17:11)
[2023-08-19] MEDS: HYDROcodone/acetaminophen 7.5MG/325MG per 15ml UD CUP PEG PRN ×4 (00:47→20:09)
[2023-08-19 06:58] LABS: BASOPHILS % (AUTO) 0.5 % (0-1); EOSINOPHILS # (AUTO) 0.4 X10'3 (0-0.9); EOSINOPHILS % (AUTO) 4.3 % (0-6); HEMATOCRIT 23.5 % (35.0-45.0); HEMOGLOBIN 7.8 g/dl (12.0-16.0); LYMPHOCYTES # (AUTO) 1.4 X10'3 (1.1-4.8); LYMPHOCYTES % (AUTO) 15.9 % (21-51); MEAN CORPUSCULAR HEMOGLOBIN 29.3 PG (27.0-31.0); MEAN CORPUSCULAR HGB CONC 33.2 g/dL (33.0-36.5); MEAN CORPUSCULAR VOLUME 88.3 FL (78-98); MEAN PLATELET VOLUME 7.9 FL (7.4-10.4); MONOCYTES # (AUTO) 0.8 X10'3 (0-0.9); MONOCYTES % (AUTO) 9.2 % (2-12); NEUTROPHILS # (AUTO) 6.2 X10'3 (1.8-7.7); NEUTROPHILS % (AUTO) 70.1 % (42-75); PLATELET COUNT 218 X10'3 (140-440); RED BLOOD COUNT 2.67 X10'6 (4.20-5.60); WHITE BLOOD COUNT 8.8 X10'3 (4.5-11.0)
[2023-08-19 07:00] VITALS: BP 137/74; PULSE 80; RESP 20; TEMP 98.5; O2SAT 99
[2023-08-19] MEDS: ARGININE/GLUTAMINE/CALCIUM BMB (JUVEN 19.3GM PKT) 1 EACH POWD.PACK PEG SCH ×3 (07:15→12:47)
[2023-08-19] MEDS: ferrous sulfate 325mg tablet PO SCH (07:32)
[2023-08-19] MEDS: lisinopril 20mg tablet PO SCH (07:32)
[2023-08-19] MEDS: amLODIPine 5mg tablet PO SCH (07:33)
[2023-08-19] MEDS: atorvastatin 20mg tablet PO SCH (07:33)
[2023-08-19] MEDS: metoprolol tartrate 25mg tablet PO SCH ×2 (07:34→20:10)
[2023-08-19] MEDS: MULTIVIT-MIN/FERROUS GLUCONATE 9 MG/15 ML LIQUID PO SCH (07:35)
[2023-08-19 07:37] LABS: ALANINE AMINOTRANSFERASE 15 U/L (12-78); ALBUMIN 1.3 G/DL (3.4-5.0); ALBUMIN/GLOBULIN RATIO 0.4 (1.1-1.5); ALKALINE PHOSPHATASE 63 IU/L (46-116); ANION GAP 8 (8-16); ASPARTATE AMINO TRANSFERASE 13 U/L (10-37); BILIRUBIN,TOTAL 0.1 MG/DL (0.1-1.0); BLOOD UREA NITROGEN 45 MG/DL (7-18); BUN/CREATININE RATIO 47.4 (10.0-20.0); CHLORIDE 116 MMOL/L (99-107); CREATININE 0.95 MG/DL (0.40-0.90); GLUCOSE 157 MG/DL (70-104); POTASSIUM 4.7 MMOL/L (3.5-5.1); SODIUM 145 MMOL/L (135-145); TOTAL CARBON DIOXIDE 20.8 MMOL/L (24-32); TOTAL PROTEIN 4.6 G/DL (6.4-8.2); eCRCL 59 ML/MIN; eGFR 59 ML/MIN
[2023-08-19] MEDS: CefTRIAXone/D5W-Rocephin 1gm 50 ML IV SCH (07:40)
[2023-08-19] MEDS: K and/or MAG REPLACEMENT MC SCH ×2 (07:54→20:00)
[2023-08-19 07:58] VITALS: PULSE 86; RESP 14; O2SAT 99
[2023-08-19 18:00] VITALS: BP 153/70; PULSE 78; RESP 17; TEMP 98.4; O2SAT 97
[2023-08-19 20:00] VITALS: RESP 20; O2SAT 95
[2023-08-19] MEDS: linezolid 600mg/300ml PREMIX 300 ML IV SCH (20:06)
[2023-08-19] MEDS: insulin glargine (Lantus) pen - multi-dose SQ SCH (21:00)
[2023-08-19 21:16] VITALS: PULSE 75; RESP 16; O2SAT 97
[2023-08-19 22:00] VITALS: BP 145/79; PULSE 77; RESP 18; TEMP 97.7; O2SAT 99
[2023-08-20] MEDS: HYDROcodone/acetaminophen 7.5MG/325MG per 15ml UD CUP PEG PRN ×5 (01:14→23:34)
[2023-08-20] MEDS: normal saline 1000ml 1,000 ML IV SCH (01:15)
[2023-08-20] MEDS: heparin, porcine 5000 units/ml vial SQ SCH ×4 (01:15→23:24)
[2023-08-20 05:58] LABS: BASOPHILS # (AUTO) 0.2 X10'3 (0-0.2); BASOPHILS % (AUTO) 1.9 % (0-1); EOSINOPHILS # (AUTO) 0.3 X10'3 (0-0.9); HEMATOCRIT 23.5 % (35.0-45.0); HEMOGLOBIN 7.7 g/dl (12.0-16.0); LYMPHOCYTES # (AUTO) 1.8 X10'3 (1.1-4.8); LYMPHOCYTES % (AUTO) 19.6 % (21-51); MEAN CORPUSCULAR HGB CONC 32.9 g/dL (33.0-36.5); MEAN CORPUSCULAR VOLUME 88.3 FL (78-98); MEAN PLATELET VOLUME 7.8 FL (7.4-10.4); MONOCYTES # (AUTO) 0.9 X10'3 (0-0.9); MONOCYTES % (AUTO) 10.2 % (2-12); NEUTROPHILS # (AUTO) 6.1 X10'3 (1.8-7.7); NEUTROPHILS % (AUTO) 65.3 % (42-75); PLATELET COUNT 195 X10'3 (140-440); RED BLOOD COUNT 2.66 X10'6 (4.20-5.60); RED CELL DISTRIBUTION WIDTH 16.2 % (11.5-14.5); WHITE BLOOD COUNT 9.3 X10'3 (4.5-11.0)
[2023-08-20 06:00] VITALS: BP 177/85; PULSE 89; RESP 17; TEMP 100; O2SAT 97
[2023-08-20 06:20] LABS: ALANINE AMINOTRANSFERASE 16 U/L (12-78); ALBUMIN 1.4 G/DL (3.4-5.0); ALBUMIN/GLOBULIN RATIO 0.4 (1.1-1.5); ALKALINE PHOSPHATASE 66 IU/L (46-116); ANION GAP 7 (8-16); ASPARTATE AMINO TRANSFERASE 12 U/L (10-37); BILIRUBIN,TOTAL 0.1 MG/DL (0.1-1.0); BLOOD UREA NITROGEN 58 MG/DL (7-18); BUN/CREATININE RATIO 56.9 (10.0-20.0); CALCIUM 8.1 MG/DL (8.5-10.1); CHLORIDE 114 MMOL/L (99-107); CREATININE 1.02 MG/DL (0.40-0.90); GLUCOSE 169 MG/DL (70-104); MAGNESIUM 2.1 MG/DL (1.5-2.4); POTASSIUM 4.3 MMOL/L (3.5-5.1); SODIUM 142 MMOL/L (135-145); TOTAL CARBON DIOXIDE 21.1 MMOL/L (24-32); TOTAL PROTEIN 4.9 G/DL (6.4-8.2); eCRCL 55 ML/MIN; eGFR 55 ML/MIN
[2023-08-20] MEDS: K and/or MAG REPLACEMENT MC SCH ×2 (07:41→19:43)
[2023-08-20] MEDS: linezolid 600mg/300ml PREMIX 300 ML IV SCH ×2 (07:49→19:57)
[2023-08-20] MEDS: MULTIVIT-MIN/FERROUS GLUCONATE 9 MG/15 ML LIQUID PO SCH (07:49)
[2023-08-20] MEDS: amLODIPine 5mg tablet PO SCH (07:49)
[2023-08-20] MEDS: ferrous sulfate 325mg tablet PO SCH (07:49)
[2023-08-20] MEDS: lisinopril 20mg tablet PO SCH (07:50)
[2023-08-20] MEDS: atorvastatin 20mg tablet PO SCH (07:50)
[2023-08-20] MEDS: metoprolol tartrate 25mg tablet PO SCH ×2 (07:51→19:57)
[2023-08-20] MEDS: ARGININE/GLUTAMINE/CALCIUM BMB (JUVEN 19.3GM PKT) 1 EACH POWD.PACK PEG SCH ×2 (07:52→12:33)
[2023-08-20 10:00] VITALS: BP 176/63; PULSE 72; RESP 20; TEMP 99.5; O2SAT 95
[2023-08-20 11:07] VITALS: PULSE 92; RESP 18; O2SAT 97
[2023-08-20 18:00] VITALS: BP 170/61; PULSE 79; RESP 20; TEMP 99.7; O2SAT 93
[2023-08-20 20:19] VITALS: PULSE 92; RESP 18; O2SAT 95
[2023-08-20] MEDS: insulin glargine (Lantus) pen - multi-dose SQ SCH (21:00)
[2023-08-20 22:00] VITALS: BP 177/71; PULSE 69; RESP 19; TEMP 97.9; O2SAT 93
[2023-08-21 06:59] VITALS: BP 191/69; PULSE 84; RESP 17; TEMP 98; O2SAT 96
[2023-08-21] MEDS: K and/or MAG REPLACEMENT MC SCH (08:00)
[2023-08-21] MEDS: MULTIVIT-MIN/FERROUS GLUCONATE 9 MG/15 ML LIQUID PO SCH (08:51)
[2023-08-21] MEDS: amLODIPine 5mg tablet PO SCH (08:51)
[2023-08-21] MEDS: lisinopril 20mg tablet PO SCH (08:52)
[2023-08-21] MEDS: metoprolol tartrate 25mg tablet PO SCH (08:52)
[2023-08-21] MEDS: ferrous sulfate 325mg tablet PO SCH (08:52)
[2023-08-21] MEDS: atorvastatin 20mg tablet PO SCH (08:53)
[2023-08-21] MEDS: heparin, porcine 5000 units/ml vial SQ SCH ×2 (08:53→17:10)
[2023-08-21] MEDS: linezolid 600mg/300ml PREMIX 300 ML IV SCH (08:55)
[2023-08-21] MEDS: normal saline 1000ml 1,000 ML IV SCH (09:11)
[2023-08-21 09:56] VITALS: PULSE 64; RESP 18; O2SAT 98
[2023-08-21] MEDS: ARGININE/GLUTAMINE/CALCIUM BMB (JUVEN 19.3GM PKT) 1 EACH POWD.PACK PEG SCH ×2 (10:07→12:48)
[2023-08-21 11:56] VITALS: BP 156/65; PULSE 64; RESP 24; TEMP 99.3; O2SAT 99
[2023-08-21 12:48] VITALS: RESP 20
[2023-08-21] MEDS: HYDROcodone/acetaminophen 7.5MG/325MG per 15ml UD CUP PEG PRN (12:48)
[2023-08-21] MEDS ORDERED: insulin regular, human U-100 3ml vial - multi-dose SQ SCH (14:10)
[2023-08-21] MEDS ORDERED: linezolid 600mg tablet PEG SCH (20:00)
[2023-08-25] MEDS ORDERED: ATOR40TA PO (12:49)
[2023-08-25] MEDS ORDERED: LISI20TA28 PO (12:49)
[2023-08-25] MEDS ORDERED: AMLO10TA PO (12:49)
[2023-08-25] MEDS ORDERED: MULT9LIQ9 PO (12:49)
[2023-08-25] MEDS ORDERED: BACL10TA PO (12:49)
== END 2023-08-21 18:26 | DRG 52 ==
LOC: ER 16:39 → ED HOLD 22:18 → EDBEDREQ 08-16 06:53 → ORTHO 4S 08-16 09:45
PROVIDERS: ADMIT Family Medicine; ATTEND Internal Medicine
DX: G93.41 Metabolic encephalopathy (principal); J96.10 Chronic respiratory failure, unspecified whether with hypoxia or hypercapnia; E46 Unspecified protein-calorie malnutrition; A04.72 Enterocolitis due to Clostridium difficile, not specified as recurrent; E11.22 Type 2 diabetes mellitus with diabetic chronic kidney disease; S31.000A Unspecified open wound of lower back and pelvis without penetration into retroperitoneum, initial encounter; D64.9 Anemia, unspecified; I12.9 Hypertensive chronic kidney disease with stage 1 through stage 4 chronic kidney disease, or unspecified chronic kidney disease; N18.9 Chronic kidney disease, unspecified; E87.6 Hypokalemia; M54.9 Dorsalgia, unspecified; X58.XXXA Exposure to other specified factors, initial encounter; E11.42 Type 2 diabetes mellitus with diabetic polyneuropathy; N39.0 Urinary tract infection, site not specified; E78.5 Hyperlipidemia, unspecified; Z20.822 Contact with and (suspected) exposure to COVID-19; Z79.4 Long term (current) use of insulin; Z88.5 Allergy status to narcotic agent; Z79.899 Other long term (current) drug therapy; Z86.73 Personal history of transient ischemic attack (TIA), and cerebral infarction without residual deficits; Z87.891 Personal history of nicotine dependence; Z93.1 Gastrostomy status; Y93.89 Activity, other specified; Y92.89 Other specified places as the place of occurrence of the external cause; Y99.8 Other external cause status; Z59.00 Homelessness unspecified; Z68.27 Body mass index [BMI] 27.0-27.9, adult
CPT/HCPCS: 36415; 70450; 71045; 73100; 80053; 80061; 81001; 82948; 83036; 83540; 83550; 83605; 83735; 83880; 84134; 84145; 84484; 85025; 85610; 85730; 87040; 87077; 87081; 87088; 87186; 87324; 87449; 87502; 87503; 87811; 92508; 92616; 93005; 93306; 94760; 99285; A4314; A5200; A6212; A6243; A6250; A6253; A6449; G0378; J0696; J1170; J1644; J1815; J2020; J2270; J3480; J7030

== ENCOUNTER 2023-08-24 05:30 | Inpatient (IN) | payer MEDICAID ==
[2023-08-24] VITALS (26 sets, daily range): BP systolic 120–193; BP diastolic 52–92; PULSE 60–82; RESP 14–66; O2SAT 96–100
[~2023-08-24] VITALS: Ht 172.7 cm; Wt 81.4 kg
[~2023-08-24 05:30] MED LIST changes: +CHOL4PAC19 PO; +ESOM20CA PO; -GABA300C PO; -HYDR-4070 PO; +INSU100V49 SQ; -LISI20TA28 PO; +LOP12.5T PO; -LORA-269 PO; +MULT9LIQ9 PO; +NYST15CR36 TOP; -ONDA-103 PO; -POTA8TAB69 PO; -SERT-432 PO; +SODI473S26 TP; +SODI650T29 PO; -TRAM50TA2 PO; -VANC5VIA PO
[2023-08-24] MEDS ORDERED: piperacillin/tazo 3.375gm/50ml 50 ML IV ONE (05:40)
[2023-08-24 05:45] LABS: ABG BASE EXCESS -4.9 mmol/L (-2.0-2.0); ABG HCO3 19.3 mmol/L (22.0-26.0); ABG OXYGEN SATURATION 86.4 % (94-97); ABG PCO2 (T) 32.7 mmHg (32.0-45.0); ABG PH (T) 7.389 (7.350-7.450); ABG PO2 (T) 50.2 mmHg (75.0-100.0); ALLEN'S TEST Modified; FCOHb 0.2 % (0.0-3.9); FHHb 13.5 % (0.0-5.0); FMetHb 0.3 % (0.0-1.5); MODE ems cpap; TOTAL HEMOGLOBIN 10.1 G/dl (12.0-16.0)
[2023-08-24] MEDS ORDERED: propofol 1000mg/100ml bottle 100 ML IV ONE ×2 (06:04→21:17)
[2023-08-24] MEDS ORDERED: acetaminophen 325mg tablet PO PRN ×2 (06:45)
[2023-08-24] MEDS ORDERED: magnesium hydroxide 30ml (MOM) UD suspension PO PRN (06:45)
[2023-08-24] MEDS ORDERED: ondansetron/PF 4mg/2ml inj IV PRN (06:45)
[2023-08-24 07:02] LABS: ABG BASE EXCESS -3.9 mmol/L (-2.0-2.0); ABG HCO3 19.1 mmol/L (22.0-26.0); ABG OXYGEN SATURATION 99.1 % (94-97); ABG PCO2 (T) 27.6 mmHg (32.0-45.0); ABG PH (T) 7.457 (7.350-7.450); ALLEN'S TEST POSITIVE; FCOHb 0.3 % (0.0-3.9); FHHb 0.9 % (0.0-5.0); FMetHb 0.4 % (0.0-1.5); FO2Hb 98.4 % (94-97); MODE VENT - AC; RESPIRATORY RATE 18 b/min; TIDAL VOLUME 450 mL; TOTAL HEMOGLOBIN 9.8 G/dl (12.0-16.0)
[2023-08-24 07:12] LABS: BASOPHILS # (AUTO) 0.1 X10'3 (0-0.2); BASOPHILS % (AUTO) 0.7 % (0-1); EOSINOPHILS # (AUTO) 0.2 X10'3 (0-0.9); EOSINOPHILS % (AUTO) 1.8 % (0-6); HEMATOCRIT 26.5 % (35.0-45.0); HEMOGLOBIN 8.6 g/dl (12.0-16.0); LYMPHOCYTES % (AUTO) 10.1 % (21-51); MEAN CORPUSCULAR HEMOGLOBIN 28.6 PG (27.0-31.0); MEAN CORPUSCULAR HGB CONC 32.4 g/dL (33.0-36.5); MEAN CORPUSCULAR VOLUME 88.1 FL (78-98); MEAN PLATELET VOLUME 8.9 FL (7.4-10.4); MONOCYTES # (AUTO) 0.8 X10'3 (0-0.9); MONOCYTES % (AUTO) 8.2 % (2-12); NEUTROPHILS # (AUTO) 8.1 X10'3 (1.8-7.7); NEUTROPHILS % (AUTO) 79.2 % (42-75); PLATELET COUNT 227 X10'3 (140-440); RED BLOOD COUNT 3.01 X10'6 (4.20-5.60); RED CELL DISTRIBUTION WIDTH 16.1 % (11.5-14.5); WHITE BLOOD COUNT 10.3 X10'3 (4.5-11.0)
[2023-08-24 07:22] LABS: ALANINE AMINOTRANSFERASE 16 U/L (12-78); ALBUMIN 1.6 G/DL (3.4-5.0); ALBUMIN/GLOBULIN RATIO 0.4 (1.1-1.5); ALKALINE PHOSPHATASE 71 IU/L (46-116); ANION GAP 11 (8-16); ASPARTATE AMINO TRANSFERASE 21 U/L (10-37); BILIRUBIN,TOTAL 0.3 MG/DL (0.1-1.0); BLOOD UREA NITROGEN 67 MG/DL (7-18); BUN/CREATININE RATIO 55.4 (10.0-20.0); CALCIUM 8.9 MG/DL (8.5-10.1); CHLORIDE 108 MMOL/L (99-107); CREATININE 1.21 MG/DL (0.40-0.90); GLUCOSE 236 MG/DL (70-104); POTASSIUM 4.1 MMOL/L (3.5-5.1); SODIUM 140 MMOL/L (135-145); TOTAL PROTEIN 5.9 G/DL (6.4-8.2); eCRCL 48 ML/MIN; eGFR 45 ML/MIN
[2023-08-24 07:30] LABS: PRO BRAIN NATRIURETIC PEPTIDE 5640 PG/ML (0-125)
[2023-08-24 07:37] LABS: BILIRUBIN,URINE NEGATIVE (Neg); CLARITY,URINE CLOUDY (Clear); COLOR,URINE STRAW (Yellow); GLUCOSE, URINE 100 mg/dl (Neg); KETONES,URINE NEGATIVE (Neg); LEUKOCYTE ESTERASE ,URINE NEGATIVE (Neg); NITRITES, URINE NEGATIVE (Neg); OCCULT BLOOD,URINE SMALL (Neg); PH,URINE 5.5 (4.8-8.0); PROTEIN,URINE 100 mg/dl (Neg); UROBILINOGEN,URINE 0.2 E.U/dL (0.2-1.0)
[2023-08-24 07:39] LABS: UA COLLECTION TYPE FOLEY CATH
[2023-08-24 07:47] LABS: BACTERIA,URINE FEW /HPF (Neg); RBC,URINE 0-2 /HPF (0-2); SQUAMOUS EPITHELIAL CELL,UR FEW /LPF (FEW); WBC CLUMPS,URINE FEW /HPF (NEGATIVE)
[2023-08-24 07:48] LABS: YEAST MANY /HPF (NEGATIVE)
[2023-08-24] MEDS ORDERED: famotidine/PF 10 mg/ml inj IV SCH ×2 (08:00→14:20)
[2023-08-24] MEDS ORDERED: etomidate 2mg/ml inj. ONE (08:00)
[2023-08-24] MEDS ORDERED: docusate sod 100mg capsule PO SCH (08:00)
[2023-08-24] MEDS ORDERED: rocuronium 10mg/ml inj IV ONE (08:00)
[2023-08-24] MEDS: normal saline 1000ml 1,000 ML IV SCH ×2 (08:10→20:45)
[2023-08-24] MEDS: enoxaparin 40mg/0.4ml syringe SUBCUT SCH (08:51)
[2023-08-24] MEDS: fluconazole-Diflucan 200mg/NS 100 ML IV SCH (10:29)
[2023-08-24] MEDS ORDERED: DEXTROSE 15 GM of carb/4 tabs (each vial/BOTTLE has 4 tablets) PO PRN ×2 (15:30)
[2023-08-24] MEDS ORDERED: glucagon, human recombinant 1mg kit SUBCUT PRN (15:30)
[2023-08-24] MEDS ORDERED: dextrose 50%-water 50ml dispensing syringe IV PRN ×2 (15:30)
[2023-08-24] MEDS ORDERED: insulin Lispro (HumaLOG) vial - multi-dose SQ SCH (15:30)
[2023-08-24] MEDS ORDERED: acetaminophen 325mg/10.15ml oral unit dose solution OGT PRN ×2 (19:30)
[2023-08-24] MEDS: docusate sodium 100mg/10ml UD cup OGT SCH (20:44)
[2023-08-24] MEDS: insulin glargine (Lantus) pen - multi-dose SQ SCH (20:58)
[2023-08-24] MEDS: propofol 1000mg/100ml bottle 100 ML IV SCH (22:28)
[2023-08-25] VITALS (36 sets, daily range): BP systolic 96–181; BP diastolic 52–77; PULSE 68–103; RESP 12–27; O2SAT 92–100
[2023-08-25 02:31] LABS: BASOPHILS # (AUTO) 0.1 X10'3 (0-0.2); BASOPHILS % (AUTO) 0.9 % (0-1); EOSINOPHILS # (AUTO) 0.1 X10'3 (0-0.9); EOSINOPHILS % (AUTO) 1.7 % (0-6); HEMATOCRIT 22.9 % (35.0-45.0); HEMOGLOBIN 7.4 g/dl (12.0-16.0); LYMPHOCYTES # (AUTO) 1.5 X10'3 (1.1-4.8); LYMPHOCYTES % (AUTO) 18.7 % (21-51); MEAN CORPUSCULAR HEMOGLOBIN 28.8 PG (27.0-31.0); MEAN CORPUSCULAR HGB CONC 32.2 g/dL (33.0-36.5); MEAN CORPUSCULAR VOLUME 89.3 FL (78-98); MEAN PLATELET VOLUME 9.1 FL (7.4-10.4); MONOCYTES # (AUTO) 1.1 X10'3 (0-0.9); MONOCYTES % (AUTO) 13.4 % (2-12); NEUTROPHILS # (AUTO) 5.4 X10'3 (1.8-7.7); NEUTROPHILS % (AUTO) 65.3 % (42-75); PLATELET COUNT 230 X10'3 (140-440); RED BLOOD COUNT 2.56 X10'6 (4.20-5.60); RED CELL DISTRIBUTION WIDTH 15.9 % (11.5-14.5); WHITE BLOOD COUNT 8.2 X10'3 (4.5-11.0)
[2023-08-25 02:38] LABS: ALBUMIN 1.3 G/DL (3.4-5.0); ANION GAP 11 (8-16); BLOOD UREA NITROGEN 59 MG/DL (7-18); CALCIUM 8.3 MG/DL (8.5-10.1); CHLORIDE 111 MMOL/L (99-107); CREATININE 1.23 MG/DL (0.40-0.90); GLUCOSE 141 MG/DL (70-104); PHOSPHORUS 4.4 MG/DL (2.3-4.5); POTASSIUM 4.1 MMOL/L (3.5-5.1); SODIUM 143 MMOL/L (135-145); TRIGLYCERIDES 173 MG/DL (20-135); eCRCL 47 ML/MIN; eGFR 44 ML/MIN
[2023-08-25 03:47] LABS: ABG BASE EXCESS -3.5 mmol/L (-2.0-2.0); ABG HCO3 18.6 mmol/L (22.0-26.0); ABG OXYGEN SATURATION 98.9 % (94-97); ABG PCO2 (T) 23.3 mmHg (32.0-45.0); ABG PH (T) 7.521 (7.350-7.450); ABG PO2 (T) 136.6 mmHg (75.0-100.0); FCOHb 0.3 % (0.0-3.9); FHHb 1.1 % (0.0-5.0); FMetHb 0.3 % (0.0-1.5); FO2Hb 98.3 % (94-97); MODE VENT - AC; PEEP 5 cm H2O; RESPIRATORY RATE 14 b/min; TIDAL VOLUME 500 mL; TOTAL HEMOGLOBIN 7.8 G/dl (12.0-16.0)
[2023-08-25] MEDS: fluconazole-Diflucan 200mg/NS 100 ML IV SCH (07:12)
[2023-08-25] MEDS: docusate sodium 100mg/10ml UD cup OGT SCH ×2 (07:13→20:00)
[2023-08-25] MEDS: enoxaparin 40mg/0.4ml syringe SUBCUT SCH (07:13)
[2023-08-25] MEDS ORDERED: fluconazole-Diflucan 200mg/NS 100 ML IV SCH (08:00)
[2023-08-25] MEDS ORDERED: sodium chloride 3% for inhalation 4ml nebule IH SCH (09:00)
[2023-08-25] MEDS ORDERED: albuterol 2.5 MG/3 ML nebule NEB SCH (09:00)
[2023-08-25] MEDS: normal saline 1000ml 1,000 ML IV SCH (09:31)
[2023-08-25] MEDS: propofol 1000mg/100ml bottle 100 ML IV SCH (12:44)
[2023-08-25] MEDS ORDERED: HYDR0.5S2 IV (12:49)
[2023-08-25] MEDS ORDERED: HYDR15SO10 PO (12:49)
[2023-08-25] MEDS ORDERED: INSU100V49 SQ (12:49)
[2023-08-25] MEDS ORDERED: AMLO10TA GT (12:49)
[2023-08-25] MEDS ORDERED: MULT9LIQ9 GT (12:49)
[2023-08-25] MEDS ORDERED: ATR0.5NEB IH (12:49)
[2023-08-25] MEDS ORDERED: FERR325T28 PO (12:49)
[2023-08-25] MEDS ORDERED: LISI20TA28 GT (12:49)
[2023-08-25] MEDS ORDERED: ESOM20CA38 PO (12:49)
[2023-08-25] MEDS ORDERED: METO100T14 PO (12:49)
[2023-08-25] MEDS ORDERED: LINE600T12 PO (12:49)
[2023-08-25] MEDS ORDERED: BACL10TA GT (12:49)
[2023-08-25] MEDS ORDERED: ATOR40TA GT (12:49)
[2023-08-25] MEDS ORDERED: HEPARIN SQ (12:54)
[2023-08-25 13:17] LABS: C DIFF ANTIGEN POSITIVE (NEGATIVE); C DIFF SPECIMEN=DIARRHEA? ACCEPTABLE; C DIFFICILE TOXINS A&B POSITIVE (Neg)
[2023-08-25 13:23] LABS: PREALBUMIN 17.8 MG/DL (19-36)
[2023-08-25] MEDS: morphine 2 MG/ML inj. syringe IV PRN (15:15)
[2023-08-25] MEDS: linezolid 600mg/300ml PREMIX 300 ML IV SCH (19:57)
[2023-08-25] MEDS: vancomycin 125mg/5ml ORAL solution 5ml UD oral syringe CORPAK SCH (19:57)
[2023-08-25] MEDS: insulin glargine (Lantus) pen - multi-dose SQ SCH (20:20)
[2023-08-25] MEDS ORDERED: propofol 1000mg/100ml bottle 100 ML IV PRN (20:35)
[2023-08-26] VITALS (36 sets, daily range): BP systolic 60–180; BP diastolic 45–82; PULSE 60–93; RESP 12–28; O2SAT 89–100
[2023-08-26] MEDS: normal saline 1000ml 1,000 ML IV SCH ×2 (00:03→12:05)
[2023-08-26] MEDS: vancomycin 125mg/5ml ORAL solution 5ml UD oral syringe CORPAK SCH ×3 (01:30→14:07)
[2023-08-26] MEDS: metoprolol tartrate 50mg tablet PO SCH ×2 (01:31→06:51)
[2023-08-26] MEDS: propofol 1000mg/100ml bottle 100 ML IV SCH ×2 (03:16→14:43)
[2023-08-26 03:19] LABS: ABG BASE EXCESS -3.6 mmol/L (-2.0-2.0); ABG HCO3 19.4 mmol/L (22.0-26.0); ABG OXYGEN SATURATION 92.3 % (94-97); ABG PCO2 (T) 26.8 mmHg (32.0-45.0); ABG PH (T) 7.477 (7.350-7.450); ABG PO2 (T) 60.8 mmHg (75.0-100.0); ALLEN'S TEST Modified; FCOHb 0.3 % (0.0-3.9); FHHb 7.7 % (0.0-5.0); FMetHb 0.3 % (0.0-1.5); FO2Hb 91.7 % (94-97); MODE prvc; PATIENT TEMPERATURE 37.1; PEEP 5 cm H2O; RESPIRATORY RATE 12 b/min; TIDAL VOLUME 400 mL; TOTAL HEMOGLOBIN 7.2 G/dl (12.0-16.0)
[2023-08-26 06:25] LABS: BASOPHILS # (AUTO) 0.1 X10'3 (0-0.2); BASOPHILS % (AUTO) 0.7 % (0-1); EOSINOPHILS # (AUTO) 0.3 X10'3 (0-0.9); EOSINOPHILS % (AUTO) 2.8 % (0-6); HEMATOCRIT 22.4 % (35.0-45.0); HEMOGLOBIN 7.3 g/dl (12.0-16.0); LYMPHOCYTES # (AUTO) 1.7 X10'3 (1.1-4.8); LYMPHOCYTES % (AUTO) 19.2 % (21-51); MEAN CORPUSCULAR HEMOGLOBIN 28.7 PG (27.0-31.0); MEAN CORPUSCULAR HGB CONC 32.5 g/dL (33.0-36.5); MEAN CORPUSCULAR VOLUME 88.2 FL (78-98); MEAN PLATELET VOLUME 8.2 FL (7.4-10.4); MONOCYTES # (AUTO) 0.9 X10'3 (0-0.9); MONOCYTES % (AUTO) 10.4 % (2-12); NEUTROPHILS # (AUTO) 6.1 X10'3 (1.8-7.7); NEUTROPHILS % (AUTO) 66.9 % (42-75); PLATELET COUNT 229 X10'3 (140-440); RED BLOOD COUNT 2.54 X10'6 (4.20-5.60); RED CELL DISTRIBUTION WIDTH 15.8 % (11.5-14.5); WHITE BLOOD COUNT 9.1 X10'3 (4.5-11.0)
[2023-08-26 06:31] LABS: ALBUMIN 1.3 G/DL (3.4-5.0); ANION GAP 11 (8-16); BLOOD UREA NITROGEN 46 MG/DL (7-18); BUN/CREATININE RATIO 41.4 (10.0-20.0); CALCIUM 8.2 MG/DL (8.5-10.1); CHLORIDE 111 MMOL/L (99-107); CREATININE 1.11 MG/DL (0.40-0.90); GLUCOSE 177 MG/DL (70-104); PHOSPHORUS 4.4 MG/DL (2.3-4.5); POTASSIUM 3.6 MMOL/L (3.5-5.1); SODIUM 142 MMOL/L (135-145); TOTAL CARBON DIOXIDE 19.6 MMOL/L (24-32); eCRCL 52 ML/MIN; eGFR 50 ML/MIN
[2023-08-26] MEDS: enoxaparin 40mg/0.4ml syringe SUBCUT SCH (06:52)
[2023-08-26] MEDS: morphine 4 MG/ML inj SYRINge IV PRN ×2 (06:52→14:54)
[2023-08-26] MEDS: fluconazole-Diflucan 200mg/NS 100 ML IV SCH (06:52)
[2023-08-26] MEDS: docusate sodium 100mg/10ml UD cup OGT SCH (06:53)
[2023-08-26] MEDS: linezolid 600mg/300ml PREMIX 300 ML IV SCH ×2 (07:57→20:48)
[2023-08-26] MEDS: insulin regular, human U-100 3ml vial - multi-dose SQ PRN ×2 (13:38→21:01)
[2023-08-26] MEDS ORDERED: ipratropium 0.5 MG/2.5ML nebule IH SCH (14:00)
[2023-08-26] MEDS ORDERED: acetaminophen 325mg/10.15ml oral unit dose solution PEG PRN ×2 (15:25→15:26)
[2023-08-26] MEDS ORDERED: magnesium hydroxide 30ml (MOM) UD suspension PEG PRN (15:27)
[2023-08-26] MEDS ORDERED: HEPARIN 5000 UNIT SQ SCH (16:00)
[2023-08-26] MEDS: docusate sodium 100mg/10ml UD cup PEG SCH (20:00)
[2023-08-26] MEDS ORDERED: non-formulary drug (Metoprolol Tartrate 1 TAB) PO SCH (20:00)
[2023-08-26] MEDS: metoprolol tartrate 50mg tablet PEG SCH (20:47)
[2023-08-26] MEDS: vancomycin 125mg/5ml ORAL solution 5ml UD oral syringe PEG SCH (20:48)
[2023-08-26] MEDS: insulin glargine (Lantus) pen - multi-dose SQ SCH (21:02)
[2023-08-27] VITALS (32 sets, daily range): BP systolic 86–179; BP diastolic 41–78; PULSE 55–86; RESP 12–29; O2SAT 92–99
[2023-08-27] MEDS: vancomycin 125mg/5ml ORAL solution 5ml UD oral syringe PEG SCH ×4 (02:49→19:41)
[2023-08-27] MEDS: insulin regular, human U-100 3ml vial - multi-dose SQ PRN ×2 (02:53→13:21)
[2023-08-27 03:18] LABS: ABG BASE EXCESS -3.7 mmol/L (-2.0-2.0); ABG HCO3 19.6 mmol/L (22.0-26.0); ABG OXYGEN SATURATION 97.4 % (94-97); ABG PCO2 (T) 28.4 mmHg (32.0-45.0); ABG PH (T) 7.457 (7.350-7.450); ABG PO2 (T) 91.5 mmHg (75.0-100.0); ALLEN'S TEST Modified; FCOHb 0.3 % (0.0-3.9); FHHb 2.6 % (0.0-5.0); FMetHb 0.3 % (0.0-1.5); FO2Hb 96.8 % (94-97); MODE prvc; PATIENT TEMPERATURE 37.1; PEEP 5 cm H2O; RESPIRATORY RATE 12 b/min; TIDAL VOLUME 400 mL; TOTAL HEMOGLOBIN 7.5 G/dl (12.0-16.0)
[2023-08-27 06:10] LABS: BASOPHILS # (AUTO) 0.1 X10'3 (0-0.2); BASOPHILS % (AUTO) 0.7 % (0-1); EOSINOPHILS # (AUTO) 0.4 X10'3 (0-0.9); EOSINOPHILS % (AUTO) 3.5 % (0-6); HEMOGLOBIN 7.3 g/dl (12.0-16.0); LYMPHOCYTES # (AUTO) 1.8 X10'3 (1.1-4.8); LYMPHOCYTES % (AUTO) 16.3 % (21-51); MEAN CORPUSCULAR HEMOGLOBIN 28.4 PG (27.0-31.0); MEAN CORPUSCULAR VOLUME 88.9 FL (78-98); MEAN PLATELET VOLUME 8.3 FL (7.4-10.4); MONOCYTES # (AUTO) 1.3 X10'3 (0-0.9); MONOCYTES % (AUTO) 12.2 % (2-12); NEUTROPHILS # (AUTO) 7.4 X10'3 (1.8-7.7); NEUTROPHILS % (AUTO) 67.3 % (42-75); PLATELET COUNT 217 X10'3 (140-440); RED BLOOD COUNT 2.59 X10'6 (4.20-5.60); RED CELL DISTRIBUTION WIDTH 16.2 % (11.5-14.5)
[2023-08-27 06:31] LABS: ALBUMIN 1.4 G/DL (3.4-5.0); ANION GAP 13 (8-16); BLOOD UREA NITROGEN 49 MG/DL (7-18); BUN/CREATININE RATIO 46.2 (10.0-20.0); CALCIUM 8.2 MG/DL (8.5-10.1); CHLORIDE 111 MMOL/L (99-107); CREATININE 1.06 MG/DL (0.40-0.90); GLUCOSE 95 MG/DL (70-104); MAGNESIUM 1.8 MG/DL (1.5-2.4); PHOSPHORUS 4.5 MG/DL (2.3-4.5); SODIUM 143 MMOL/L (135-145); TOTAL CARBON DIOXIDE 19.3 MMOL/L (24-32); eCRCL 55 ML/MIN; eGFR 52 ML/MIN
[2023-08-27] MEDS: MULTIVIT-MIN/FERROUS GLUCONATE 9 MG/15 ML LIQUID PEG SCH (07:25)
[2023-08-27] MEDS: ferrous sulfate 300mg/5ml UD oral liquid PEG SCH (07:25)
[2023-08-27] MEDS: famotidine/PF 10 mg/ml inj IV SCH (07:26)
[2023-08-27] MEDS: atorvastatin 20mg tablet PEG SCH (07:27)
[2023-08-27] MEDS: amLODIPine 5mg tablet PEG SCH (07:27)
[2023-08-27] MEDS: lisinopril 20mg tablet PEG SCH (07:27)
[2023-08-27] MEDS: fluconazole-Diflucan 200mg/NS 100 ML IV SCH (07:28)
[2023-08-27] MEDS: metoprolol tartrate 50mg tablet PEG SCH ×2 (07:28→19:42)
[2023-08-27] MEDS: linezolid 600mg/300ml PREMIX 300 ML IV SCH ×2 (07:28→19:39)
[2023-08-27] MEDS: docusate sodium 100mg/10ml UD cup PEG SCH ×2 (07:29→20:00)
[2023-08-27] MEDS: enoxaparin 40mg/0.4ml syringe SUBCUT SCH (07:30)
[2023-08-27] MEDS: morphine 4 MG/ML inj SYRINge IV PRN ×3 (07:35→19:43)
[2023-08-27] MEDS: propofol 1000mg/100ml bottle 100 ML IV SCH ×2 (10:54→19:40)
[2023-08-27] MEDS: ARGININE/GLUTAMINE/CALCIUM BMB (JUVEN 19.3GM PKT) 1 EACH POWD.PACK PO SCH (19:39)
[2023-08-27] MEDS: insulin glargine (Lantus) pen - multi-dose SQ SCH (21:00)
[2023-08-28] VITALS (32 sets, daily range): BP systolic 123–175; BP diastolic 43–83; PULSE 56–82; RESP 14–27; O2SAT 93–99
[2023-08-28] MEDS ORDERED: ipratropium/albuterol 3ml nebule NEB SCH (01:30)
[2023-08-28] MEDS: vancomycin 125mg/5ml ORAL solution 5ml UD oral syringe PEG SCH ×4 (02:02→20:53)
[2023-08-28 03:43] LABS: ABG BASE EXCESS -4.1 mmol/L (-2.0-2.0); ABG HCO3 18.6 mmol/L (22.0-26.0); ABG OXYGEN SATURATION 98.6 % (94-97); ABG PCO2 (T) 25.4 mmHg (32.0-45.0); ABG PH (T) 7.484 (7.350-7.450); ABG PO2 (T) 119.1 mmHg (75.0-100.0); ALLEN'S TEST Modified; FCOHb 0.3 % (0.0-3.9); FHHb 1.4 % (0.0-5.0); FMetHb 0.1 % (0.0-1.5); FO2Hb 98.2 % (94-97); MODE PRVC; PATIENT TEMPERATURE 37.4; PEEP 5 cm H2O; RESPIRATORY RATE 12 b/min; TIDAL VOLUME 400 mL; TOTAL HEMOGLOBIN 7.1 G/dl (12.0-16.0)
[2023-08-28] MEDS: famotidine/PF 10 mg/ml inj IV SCH (07:13)
[2023-08-28] MEDS: ferrous sulfate 300mg/5ml UD oral liquid PEG SCH (07:13)
[2023-08-28] MEDS: fluconazole-Diflucan 200mg/NS 100 ML IV SCH (07:13)
[2023-08-28] MEDS: linezolid 600mg/300ml PREMIX 300 ML IV SCH ×2 (07:13→20:53)
[2023-08-28] MEDS: MULTIVIT-MIN/FERROUS GLUCONATE 9 MG/15 ML LIQUID PEG SCH (07:14)
[2023-08-28] MEDS: lisinopril 20mg tablet PEG SCH (07:14)
[2023-08-28] MEDS: metoprolol tartrate 50mg tablet PEG SCH ×2 (07:14→20:53)
[2023-08-28] MEDS: atorvastatin 20mg tablet PEG SCH (07:15)
[2023-08-28] MEDS: amLODIPine 5mg tablet PEG SCH (07:15)
[2023-08-28] MEDS: ARGININE/GLUTAMINE/CALCIUM BMB (JUVEN 19.3GM PKT) 1 EACH POWD.PACK PO SCH ×2 (07:33→20:54)
[2023-08-28] MEDS: enoxaparin 40mg/0.4ml syringe SUBCUT SCH (07:34)
[2023-08-28] MEDS: propofol 1000mg/100ml bottle 100 ML IV SCH (15:46)
[2023-08-28] MEDS: insulin glargine (Lantus) pen - multi-dose SQ SCH (21:00)
[2023-08-29] VITALS (44 sets, daily range): BP systolic 125–200; BP diastolic 43–109; PULSE 50–78; RESP 11–28; TEMP 98–98.2; O2SAT 91–97
[2023-08-29] MEDS: vancomycin 125mg/5ml ORAL solution 5ml UD oral syringe PEG SCH ×4 (02:00→20:25)
[2023-08-29 03:20] LABS: ABG BASE EXCESS -4.2 mmol/L (-2.0-2.0); ABG HCO3 18.7 mmol/L (22.0-26.0); ABG OXYGEN SATURATION 98.4 % (94-97); ABG PCO2 (T) 25.8 mmHg (32.0-45.0); ABG PO2 (T) 109.7 mmHg (75.0-100.0); ALLEN'S TEST POSITIVE; FCOHb 0.3 % (0.0-3.9); FHHb 1.6 % (0.0-5.0); FMetHb 0.3 % (0.0-1.5); FO2Hb 97.8 % (94-97); MODE VENT - prvc; PATIENT TEMPERATURE 37.4; PEEP 5 cm H2O; RESPIRATORY RATE 12 b/min; TIDAL VOLUME 400 mL; TOTAL HEMOGLOBIN 6.6 G/dl (12.0-16.0)
[2023-08-29 06:24] LABS: BASOPHILS % (AUTO) 0.4 % (0-1); EOSINOPHILS # (AUTO) 0.4 X10'3 (0-0.9); EOSINOPHILS % (AUTO) 3.4 % (0-6); LYMPHOCYTES % (AUTO) 18.6 % (21-51); MEAN CORPUSCULAR HEMOGLOBIN 29.2 PG (27.0-31.0); MEAN CORPUSCULAR HGB CONC 32.9 g/dL (33.0-36.5); MEAN CORPUSCULAR VOLUME 88.8 FL (78-98); MEAN PLATELET VOLUME 8.5 FL (7.4-10.4); MONOCYTES # (AUTO) 1.1 X10'3 (0-0.9); MONOCYTES % (AUTO) 10.3 % (2-12); NEUTROPHILS # (AUTO) 7.3 X10'3 (1.8-7.7); NEUTROPHILS % (AUTO) 67.3 % (42-75); PLATELET COUNT 195 X10'3 (140-440); RED CELL DISTRIBUTION WIDTH 16.5 % (11.5-14.5); WHITE BLOOD COUNT 10.9 X10'3 (4.5-11.0)
[2023-08-29 06:27] LABS: ALBUMIN 1.3 G/DL (3.4-5.0); ANION GAP 12 (8-16); BLOOD UREA NITROGEN 73 MG/DL (7-18); BUN/CREATININE RATIO 56.6 (10.0-20.0); CALCIUM 8.1 MG/DL (8.5-10.1); CHLORIDE 108 MMOL/L (99-107); CREATININE 1.29 MG/DL (0.40-0.90); GLUCOSE 142 MG/DL (70-104); HEMATOCRIT 19.5 % (35.0-45.0); HEMOGLOBIN 6.4 g/dl (12.0-16.0); MAGNESIUM 1.8 MG/DL (1.5-2.4); PHOSPHORUS 4.6 MG/DL (2.3-4.5); POTASSIUM 4.4 MMOL/L (3.5-5.1); SODIUM 139 MMOL/L (135-145); TOTAL CARBON DIOXIDE 18.8 MMOL/L (24-32); eCRCL 45 ML/MIN; eGFR 42 ML/MIN
[2023-08-29] MEDS: amLODIPine 5mg tablet PEG SCH ×2 (08:00→13:30)
[2023-08-29] MEDS: MULTIVIT-MIN/FERROUS GLUCONATE 9 MG/15 ML LIQUID PEG SCH (08:00)
[2023-08-29] MEDS: metoprolol tartrate 50mg tablet PEG SCH ×2 (08:00→20:25)
[2023-08-29] MEDS: atorvastatin 20mg tablet PEG SCH (08:00)
[2023-08-29] MEDS: enoxaparin 40mg/0.4ml syringe SUBCUT SCH (08:00)
[2023-08-29] MEDS: ARGININE/GLUTAMINE/CALCIUM BMB (JUVEN 19.3GM PKT) 1 EACH POWD.PACK PO SCH ×2 (08:00→20:26)
[2023-08-29] MEDS: lisinopril 20mg tablet PEG SCH ×2 (08:00→18:41)
[2023-08-29] MEDS: ferrous sulfate 300mg/5ml UD oral liquid PEG SCH (08:00)
[2023-08-29] MEDS: famotidine/PF 10 mg/ml inj IV SCH (08:15)
[2023-08-29] MEDS: propofol 1000mg/100ml bottle 100 ML IV SCH (08:16)
[2023-08-29] MEDS: fluconazole-Diflucan 200mg/NS 100 ML IV SCH (08:31)
[2023-08-29] MEDS: linezolid 600mg/300ml PREMIX 300 ML IV SCH ×2 (08:31→20:26)
[2023-08-29] MEDS ORDERED: tPA-cathflo 2 MG/2 ml IV flush IVF ONE (12:30)
[2023-08-29] MEDS ORDERED: LIDOcaine 1% (10mg/ml)w/preservative inj. 20ml MDV ONE (15:02)
[2023-08-29] MEDS ORDERED: BUPIVAcaine 2.5mg/ml inj 50ml vial (contains preservative) ONE (15:02)
[2023-08-29] MEDS ORDERED: propofol 10mg/ml 20ml vial IV ONE (15:18)
[2023-08-29] MEDS ORDERED: sevoflurane 250ml liquid IH ONE (15:18)
[2023-08-29] MEDS ORDERED: rocuronium 10mg/ml inj IV ONE (15:18)
[2023-08-29] MEDS: morphine 2 MG/ML inj. syringe IV PRN (18:41)
[2023-08-29 19:22] LABS: BASOPHILS # (AUTO) 0.1 X10'3 (0-0.2); BASOPHILS % (AUTO) 0.7 % (0-1); EOSINOPHILS # (AUTO) 0.3 X10'3 (0-0.9); EOSINOPHILS % (AUTO) 2.5 % (0-6); HEMATOCRIT 26.6 % (35.0-45.0); HEMOGLOBIN 8.6 g/dl (12.0-16.0); LYMPHOCYTES # (AUTO) 1.4 X10'3 (1.1-4.8); LYMPHOCYTES % (AUTO) 12.8 % (21-51); MEAN CORPUSCULAR HEMOGLOBIN 28.3 PG (27.0-31.0); MEAN CORPUSCULAR HGB CONC 32.3 g/dL (33.0-36.5); MEAN CORPUSCULAR VOLUME 87.7 FL (78-98); MEAN PLATELET VOLUME 8.4 FL (7.4-10.4); MONOCYTES # (AUTO) 0.8 X10'3 (0-0.9); MONOCYTES % (AUTO) 6.9 % (2-12); NEUTROPHILS # (AUTO) 8.5 X10'3 (1.8-7.7); NEUTROPHILS % (AUTO) 77.1 % (42-75); PLATELET COUNT 231 X10'3 (140-440); RED BLOOD COUNT 3.04 X10'6 (4.20-5.60); WHITE BLOOD COUNT 11.1 X10'3 (4.5-11.0)
[2023-08-29] MEDS: insulin glargine (Lantus) pen - multi-dose SQ SCH (21:00)
[2023-08-29] MEDS: morphine 4 MG/ML inj SYRINge IV PRN (22:25)
[2023-08-30] VITALS (21 sets, daily range): BP systolic 157–210; BP diastolic 47–88; PULSE 55–81; RESP 8–69; O2SAT 94–96
[2023-08-30] MEDS: propofol 1000mg/100ml bottle 100 ML IV SCH (00:01)
[2023-08-30] MEDS: hydrALAZINE 20mg/ml inj. IV PRN ×2 (00:01→14:35)
[2023-08-30] MEDS: vancomycin 125mg/5ml ORAL solution 5ml UD oral syringe PEG SCH ×2 (02:53→09:43)
[2023-08-30 03:46] LABS: ABG BASE EXCESS -3.9 mmol/L (-2.0-2.0); ABG HCO3 19.1 mmol/L (22.0-26.0); ABG OXYGEN SATURATION 95.3 % (94-97); ABG PCO2 (T) 26.8 mmHg (32.0-45.0); ABG PH (T) 7.469 (7.350-7.450); ABG PO2 (T) 67.3 mmHg (75.0-100.0); ALLEN'S TEST Modified; FCOHb 0.3 % (0.0-3.9); FHHb 4.7 % (0.0-5.0); FMetHb 0.3 % (0.0-1.5); FO2Hb 94.7 % (94-97); MODE PRVC; PATIENT TEMPERATURE 36.3; PEEP 5 cm H2O; RESPIRATORY RATE 12 b/min; TIDAL VOLUME 400 mL; TOTAL HEMOGLOBIN 9.5 G/dl (12.0-16.0)
[2023-08-30 03:48] LABS: ALBUMIN 1.3 G/DL (3.4-5.0); ANION GAP 13 (8-16); BLOOD UREA NITROGEN 67 MG/DL (7-18); BUN/CREATININE RATIO 52.3 (10.0-20.0); CALCIUM 8.3 MG/DL (8.5-10.1); CHLORIDE 109 MMOL/L (99-107); CREATININE 1.28 MG/DL (0.40-0.90); GLUCOSE 122 MG/DL (70-104); MAGNESIUM 1.8 MG/DL (1.5-2.4); PHOSPHORUS 4.7 MG/DL (2.3-4.5); POTASSIUM 4.1 MMOL/L (3.5-5.1); SODIUM 141 MMOL/L (135-145); TOTAL CARBON DIOXIDE 18.7 MMOL/L (24-32); eCRCL 45 ML/MIN; eGFR 42 ML/MIN
[2023-08-30 04:12] LABS: BASOPHILS # (AUTO) 0.1 X10'3 (0-0.2); BASOPHILS % (AUTO) 0.4 % (0-1); EOSINOPHILS # (AUTO) 0.3 X10'3 (0-0.9); EOSINOPHILS % (AUTO) 2.1 % (0-6); HEMATOCRIT 23.8 % (35.0-45.0); HEMOGLOBIN 7.8 g/dl (12.0-16.0); LYMPHOCYTES # (AUTO) 1.4 X10'3 (1.1-4.8); LYMPHOCYTES % (AUTO) 9.1 % (21-51); MEAN CORPUSCULAR HEMOGLOBIN 28.6 PG (27.0-31.0); MEAN CORPUSCULAR HGB CONC 32.7 g/dL (33.0-36.5); MEAN CORPUSCULAR VOLUME 87.3 FL (78-98); MEAN PLATELET VOLUME 8.2 FL (7.4-10.4); MONOCYTES # (AUTO) 0.7 X10'3 (0-0.9); MONOCYTES % (AUTO) 4.3 % (2-12); NEUTROPHILS # (AUTO) 13.2 X10'3 (1.8-7.7); NEUTROPHILS % (AUTO) 84.1 % (42-75); PLATELET COUNT 233 X10'3 (140-440); RED BLOOD COUNT 2.73 X10'6 (4.20-5.60); RED CELL DISTRIBUTION WIDTH 15.6 % (11.5-14.5); WHITE BLOOD COUNT 15.7 X10'3 (4.5-11.0)
[2023-08-30] MEDS: fluconazole-Diflucan 200mg/NS 100 ML IV SCH (08:00)
[2023-08-30] MEDS: linezolid 600mg/300ml PREMIX 300 ML IV SCH (09:08)
[2023-08-30] MEDS: ferrous sulfate 300mg/5ml UD oral liquid PEG SCH (09:10)
[2023-08-30] MEDS: enoxaparin 40mg/0.4ml syringe SUBCUT SCH (09:10)
[2023-08-30] MEDS: MULTIVIT-MIN/FERROUS GLUCONATE 9 MG/15 ML LIQUID PEG SCH (09:10)
[2023-08-30] MEDS: metoprolol tartrate 50mg tablet PEG SCH (09:11)
[2023-08-30] MEDS: lisinopril 20mg tablet PEG SCH (09:11)
[2023-08-30] MEDS: amLODIPine 5mg tablet PEG SCH (09:12)
[2023-08-30] MEDS: atorvastatin 20mg tablet PEG SCH (09:12)
[2023-08-30] MEDS: ARGININE/GLUTAMINE/CALCIUM BMB (JUVEN 19.3GM PKT) 1 EACH POWD.PACK PO SCH (09:15)
[2023-08-30] MEDS: morphine 2 MG/ML inj. syringe IV PRN (09:18)
[2023-08-30] MEDS ORDERED: labetalol 100mg tablet PO SCH (20:00)
== END 2023-08-30 15:00 | DRG 720 ==
LOC: ER 05:31 → ED HOLD 06:48 → EDBEDREQ 08:29 → CICU 2S 09:04
PROVIDERS: ADMIT Internal Medicine Critical Care Medicine; ATTEND Internal Medicine Critical Care Medicine
PROC: 5A1955Z Respiratory Ventilation, Greater than 96 Consecutive Hours (ICD-10-PCS; principal; 2023-08-24)
PROC: 0BH17EZ Insertion of Endotracheal Airway into Trachea, Via Natural or Artificial Opening (ICD-10-PCS; 2023-08-24)
PROC: 05HY33Z Insertion of Infusion Device into Upper Vein, Percutaneous Approach (ICD-10-PCS; 2023-08-25)
PROC: 30233N1 Transfusion of Nonautologous Red Blood Cells into Peripheral Vein, Percutaneous Approach (ICD-10-PCS; 2023-08-29)
DX: A41.9 Sepsis, unspecified organism (principal); J96.01 Acute respiratory failure with hypoxia; N17.0 Acute kidney failure with tubular necrosis; J69.0 Pneumonitis due to inhalation of food and vomit; G93.41 Metabolic encephalopathy; E46 Unspecified protein-calorie malnutrition; A04.72 Enterocolitis due to Clostridium difficile, not specified as recurrent; L89.154 Pressure ulcer of sacral region, stage 4; N39.0 Urinary tract infection, site not specified; B95.2 Enterococcus as the cause of diseases classified elsewhere; D64.9 Anemia, unspecified; E11.22 Type 2 diabetes mellitus with diabetic chronic kidney disease; E11.42 Type 2 diabetes mellitus with diabetic polyneuropathy; I12.9 Hypertensive chronic kidney disease with stage 1 through stage 4 chronic kidney disease, or unspecified chronic kidney disease; Z68.27 Body mass index [BMI] 27.0-27.9, adult; N18.9 Chronic kidney disease, unspecified; D63.8 Anemia in other chronic diseases classified elsewhere; Z16.21 Resistance to vancomycin; R29.810 Facial weakness; E78.5 Hyperlipidemia, unspecified; Z59.00 Homelessness unspecified; Z79.84 Long term (current) use of oral hypoglycemic drugs; Z86.73 Personal history of transient ischemic attack (TIA), and cerebral infarction without residual deficits; Z87.891 Personal history of nicotine dependence; Z93.3 Colostomy status
CPT/HCPCS: 36410; 36415; 36430; 36600; 70450; 71045; 76937; 80048; 80053; 81001; 82570; 82803; 82948; 83605; 83735; 83880; 84100; 84134; 84145; 84300; 84478; 84484; 85018; 85025; 86885; 86900; 86901; 86920; 87040; 87070; 87077; 87081; 87088; 87324; 87449; 93005; 94002; 94003; 94760; 94799; 99285; A4333; A4421; A4618; A4628; A6209; A6212; A6213; A6243; A6250; A6253; A6258; A6402; A6446; A6449; A7000; A7521; C1751; G0378; J0360; J1450; J1650; J1815; J2020; J2270; J2405; J2543; J2704; J3490; J7030; J7040; J7120; P9016

== ENCOUNTER 2023-09-03 12:44 | Inpatient (IN) | payer MEDICAID ==
[~2023-09-03] VITALS: Ht 177.8 cm; Wt 84.0 kg
[2023-09-03] VITALS (16 sets, daily range): BP systolic 89–119; BP diastolic 41–94; PULSE 61–120; RESP 13–20; TEMP 95.7; O2SAT 98–100
[~2023-09-03 12:44] MED LIST changes: +AMLO10TA GT; -AMLO10TA PO; +ATOR40TA GT; -ATOR40TA PO; +ATR0.5NEB IH; +BACL10TA GT; -CHOL4PAC19 PO; -ESOM20CA PO; +ESOM20CA38 PO; +HEPARIN SQ; +HYDR0.5S2 IV; +HYDR15SO10 PO; -INSU100V9 SQ; +LINE600T12 PO; +LISI20TA28 GT; -LOP12.5T PO; +METO100T14 PO; +MULT9LIQ9 GT; -MULT9LIQ9 PO; -NYST15CR36 TOP; -SODI473S26 TP; -SODI650T29 PO
[2023-09-03 13:55] LABS: BILIRUBIN,URINE NEGATIVE (Neg); CLARITY,URINE CLOUDY (Clear); COLOR,URINE STRAW (Yellow); GLUCOSE, URINE NEGATIVE (Neg); KETONES,URINE NEGATIVE (Neg); LEUKOCYTE ESTERASE ,URINE MODERATE (Neg); NITRITES, URINE NEGATIVE (Neg); OCCULT BLOOD,URINE TRACE-INTACT (Neg); PROTEIN,URINE >=300 mg/dl (Neg); UROBILINOGEN,URINE 0.2 E.U/dL (0.2-1.0)
[2023-09-03 13:55] LABS: BASOPHILS % (AUTO) 0.3 % (0-1); EOSINOPHILS # (AUTO) 0.2 X10'3 (0-0.9); EOSINOPHILS % (AUTO) 1.5 % (0-6); HEMATOCRIT 24.5 % (35.0-45.0); HEMOGLOBIN 7.7 g/dl (12.0-16.0); LYMPHOCYTES % (AUTO) 7.1 % (21-51); MEAN CORPUSCULAR HGB CONC 31.6 g/dL (33.0-36.5); MEAN CORPUSCULAR VOLUME 88.5 FL (78-98); MEAN PLATELET VOLUME 7.9 FL (7.4-10.4); MONOCYTES # (AUTO) 1.4 X10'3 (0-0.9); MONOCYTES % (AUTO) 9.6 % (2-12); NEUTROPHILS # (AUTO) 11.9 X10'3 (1.8-7.7); NEUTROPHILS % (AUTO) 81.5 % (42-75); PLATELET COUNT 268 X10'3 (140-440); RED BLOOD COUNT 2.77 X10'6 (4.20-5.60); RED CELL DISTRIBUTION WIDTH 15.9 % (11.5-14.5); WHITE BLOOD COUNT 14.6 X10'3 (4.5-11.0)
[2023-09-03 14:01] LABS: SQUAMOUS EPITHELIAL CELL,UR MODERATE /LPF (FEW); UA COLLECTION TYPE FOLEY CATH
[2023-09-03 14:02] LABS: WBC,URINE TNTC /HPF (0-4)
[2023-09-03 14:03] LABS: YEAST MANY /HPF (NEGATIVE)
[2023-09-03 14:04] LABS: BACTERIA,URINE FEW /HPF (Neg); RBC,URINE 0-2 /HPF (0-2)
[2023-09-03 14:06] LABS: ALANINE AMINOTRANSFERASE 20 U/L (12-78); ALBUMIN 1.3 G/DL (3.4-5.0); ALBUMIN/GLOBULIN RATIO 0.3 (1.1-1.5); ALKALINE PHOSPHATASE 74 IU/L (46-116); ANION GAP 14 (8-16); ASPARTATE AMINO TRANSFERASE 17 U/L (10-37); BILIRUBIN,TOTAL 0.2 MG/DL (0.1-1.0); BLOOD UREA NITROGEN 89 MG/DL (7-18); BUN/CREATININE RATIO 67.4 (10.0-20.0); CALCIUM 8.8 MG/DL (8.5-10.1); CHLORIDE 109 MMOL/L (99-107); CREATININE 1.32 MG/DL (0.40-0.90); GLUCOSE 151 MG/DL (70-104); POTASSIUM 3.3 MMOL/L (3.5-5.1); SODIUM 143 MMOL/L (135-145); TOTAL CARBON DIOXIDE 19.8 MMOL/L (24-32); TOTAL PROTEIN 5.7 G/DL (6.4-8.2); eCRCL 47 ML/MIN; eGFR 41 ML/MIN
[2023-09-03 14:09] LABS: LIPASE 38 U/L (16-77)
[2023-09-03] MEDS ORDERED: magnesium 2GM in 50ml NS 50 ML IV PRN (15:20)
[2023-09-03] MEDS ORDERED: potassium Cl 20 mEq SR tablet PO PRN ×2 (15:20)
[2023-09-03] MEDS ORDERED: potassium Cl 40MEQ/1/2NS 520ml 520 ML IV PRN (15:20)
[2023-09-03] MEDS ORDERED: magnesium 4gm in 100ml NS 100 ML IV PRN (15:20)
[2023-09-03] MEDS ORDERED: acetaminophen 325mg tablet PO PRN (15:20)
[2023-09-03] MEDS ORDERED: magnesium hydroxide 30ml (MOM) UD suspension PO PRN (15:20)
[2023-09-03] MEDS ORDERED: mag hydrox/Alum hydrox/simeth 30ml oral suspension PO PRN (15:20)
[2023-09-03] MEDS ORDERED: ondansetron/PF 4mg/2ml inj IV PRN ×2 (15:20→17:55)
[2023-09-03] MEDS ORDERED: magnesium Cl slow-release 64mg tablet PO PRN (15:20)
[2023-09-03] MEDS ORDERED: morphine 2 MG/ML inj. syringe IV PRN ×3 (15:20→17:55)
[2023-09-03 15:53] LABS: APTT 31 SECONDS (22-32); INR 0.9 INR; PROTHROMBIN TIME 10.2 SECONDS (9.0-12.0)
[2023-09-03] MEDS: metroNIDAZOLE-Flagyl 500mg/NS 100 ML IV SCH ×2 (16:15→23:56)
[2023-09-03] MEDS ORDERED: acetaminophen 1,000mg/100ml IV 100 ML IV ONE ×2 (17:55→21:50)
[2023-09-03] MEDS ORDERED: ringers solution, lacted 1,000 ML IV SCH (17:55)
[2023-09-03] MEDS ORDERED: meperidine/PF 25mg/ml syringe IV PRN (17:55)
[2023-09-03] MEDS ORDERED: sevoflurane 250ml liquid IH ONE (18:00)
[2023-09-03] MEDS ORDERED: fentaNYL/PF 50MCG/1 ML 2ML syringe ONE (18:30)
[2023-09-03] MEDS ORDERED: 0.9 % SODIUM CHLORIDE 10 ML VIAL ONE (18:37)
[2023-09-03] MEDS ORDERED: ceFAZolin 1000mg inj ONE ×2 (18:37)
[2023-09-03] MEDS ORDERED: ondansetron/PF 4mg/2ml inj ONE (18:37)
[2023-09-03] MEDS ORDERED: ePHEDrine 50MG/ML INJ. ONE (18:37)
[2023-09-03] MEDS ORDERED: dexamethasone sod phosphate 4mg/ml inj. ONE (18:37)
[2023-09-03] MEDS: docusate sod 100mg capsule PO SCH (20:00)
[2023-09-03] MEDS: K and/or MAG REPLACEMENT MC SCH (21:36)
[2023-09-03] MEDS: normal saline 1000ml 1,000 ML IV SCH (22:41)
[2023-09-03] MEDS ORDERED: ENOX40DI8 SQ (23:21)
[2023-09-03] MEDS ORDERED: VANC125C11 GT (23:21)
[2023-09-03] MEDS ORDERED: FER300L GT (23:21)
[2023-09-03] MEDS ORDERED: FAMO20VI10 IV (23:21)
[2023-09-04] VITALS (15 sets, daily range): BP systolic 101–142; BP diastolic 49–65; PULSE 74–102; RESP 13–30; TEMP 97.1–98.9; O2SAT 93–100
[2023-09-04 06:34] LABS: BASOPHILS % (AUTO) 0.1 % (0-1); EOSINOPHILS % (AUTO) 0 % (0-6); HEMATOCRIT 24.9 % (35.0-45.0); HEMOGLOBIN 7.9 g/dl (12.0-16.0); LYMPHOCYTES # (AUTO) 0.7 X10'3 (1.1-4.8); LYMPHOCYTES % (AUTO) 3.3 % (21-51); MEAN CORPUSCULAR HEMOGLOBIN 28.2 PG (27.0-31.0); MEAN CORPUSCULAR VOLUME 88.1 FL (78-98); MEAN PLATELET VOLUME 8.1 FL (7.4-10.4); MONOCYTES # (AUTO) 0.7 X10'3 (0-0.9); MONOCYTES % (AUTO) 3.4 % (2-12); NEUTROPHILS # (AUTO) 18.6 X10'3 (1.8-7.7); NEUTROPHILS % (AUTO) 93.2 % (42-75); PLATELET COUNT 297 X10'3 (140-440); RED BLOOD COUNT 2.82 X10'6 (4.20-5.60); RED CELL DISTRIBUTION WIDTH 15.8 % (11.5-14.5)
[2023-09-04 06:46] LABS: ALANINE AMINOTRANSFERASE 18 U/L (12-78); ALBUMIN 1.3 G/DL (3.4-5.0); ALBUMIN/GLOBULIN RATIO 0.3 (1.1-1.5); ALKALINE PHOSPHATASE 70 IU/L (46-116); ANION GAP 17 (8-16); APTT 28 SECONDS (22-32); ASPARTATE AMINO TRANSFERASE 14 U/L (10-37); BILIRUBIN,TOTAL 0.2 MG/DL (0.1-1.0); BLOOD UREA NITROGEN 87 MG/DL (7-18); BUN/CREATININE RATIO 64.4 (10.0-20.0); CALCIUM 8.8 MG/DL (8.5-10.1); CHLORIDE 110 MMOL/L (99-107); CREATININE 1.35 MG/DL (0.40-0.90); GLUCOSE 212 MG/DL (70-104); INR 0.9 INR; MAGNESIUM 2.1 MG/DL (1.5-2.4); PHOSPHORUS 5.5 MG/DL (2.3-4.5); POTASSIUM 3.6 MMOL/L (3.5-5.1); PROTHROMBIN TIME 10.2 SECONDS (9.0-12.0); SODIUM 143 MMOL/L (135-145); TOTAL CARBON DIOXIDE 16.2 MMOL/L (24-32); TOTAL PROTEIN 5.4 G/DL (6.4-8.2); eCRCL 46 ML/MIN; eGFR 40 ML/MIN
[2023-09-04] MEDS: metroNIDAZOLE-Flagyl 500mg/NS 100 ML IV SCH ×2 (07:54→15:00)
[2023-09-04] MEDS: docusate sod 100mg capsule PO SCH ×2 (08:00→20:00)
[2023-09-04] MEDS: K and/or MAG REPLACEMENT MC SCH ×2 (08:00→20:00)
[2023-09-04] MEDS: normal saline 1000ml 1,000 ML IV SCH ×2 (10:37→20:45)
[2023-09-04] MEDS: CefTRIAXone/D5W-Rocephin 1gm 50 ML IV SCH (10:37)
[2023-09-04] MEDS: vancomycin 125mg/5ml ORAL solution 5ml UD oral syringe PO SCH ×2 (15:00→20:53)
[2023-09-04] MEDS ORDERED: insulin Lispro (HumaLOG) vial - multi-dose SQ SCH (17:55)
[2023-09-04] MEDS ORDERED: glucagon, human recombinant 1mg kit SUBCUT PRN (17:55)
[2023-09-04] MEDS ORDERED: MESSAGE TO PHARMACY PO ONE (17:55)
[2023-09-04] MEDS ORDERED: DEXTROSE 15 GM of carb/4 tabs (each vial/BOTTLE has 4 tablets) PO PRN ×2 (17:55)
[2023-09-04] MEDS ORDERED: dextrose 50%-water 50ml dispensing syringe IV PRN ×2 (17:55)
[2023-09-04] MEDS ORDERED: insulin glargine (Lantus) pen - multi-dose SQ SCH (21:00)
[2023-09-05] MEDS: metroNIDAZOLE-Flagyl 500mg/NS 100 ML IV SCH ×3 (00:05→15:44)
[2023-09-05] MEDS: vancomycin 125mg/5ml ORAL solution 5ml UD oral syringe PO SCH ×3 (01:46→15:44)
[2023-09-05 02:50] VITALS: PULSE 89; RESP 22; O2SAT 100
[2023-09-05] MEDS ORDERED: mag hydrox/Alum hydrox/simeth 30ml oral suspension PEG PRN (03:23)
[2023-09-05] MEDS ORDERED: magnesium hydroxide 30ml (MOM) UD suspension PEG PRN (03:23)
[2023-09-05] MEDS ORDERED: DEXTROSE 15 GM of carb/4 tabs (each vial/BOTTLE has 4 tablets) PEG PRN ×2 (03:24)
[2023-09-05] MEDS ORDERED: acetaminophen 325mg/10.15ml oral unit dose solution PEG PRN (03:25)
[2023-09-05 06:00] VITALS: BP 122/62; PULSE 87; RESP 18; TEMP 97.8; O2SAT 97
[2023-09-05] MEDS: normal saline 1000ml 1,000 ML IV SCH (07:30)
[2023-09-05] MEDS: CefTRIAXone/D5W-Rocephin 1gm 50 ML IV SCH (07:46)
[2023-09-05] MEDS ORDERED: docusate sodium 100mg/10ml UD cup PEG SCH (08:00)
[2023-09-05] MEDS: K and/or MAG REPLACEMENT MC SCH (08:00)
[2023-09-05 08:03] LABS: BASOPHILS % (AUTO) 0.3 % (0-1); EOSINOPHILS % (AUTO) 0.1 % (0-6); HEMATOCRIT 26.3 % (35.0-45.0); HEMOGLOBIN 8.4 g/dl (12.0-16.0); LYMPHOCYTES # (AUTO) 2.1 X10'3 (1.1-4.8); LYMPHOCYTES % (AUTO) 11.4 % (21-51); MEAN CORPUSCULAR HEMOGLOBIN 28.3 PG (27.0-31.0); MEAN CORPUSCULAR VOLUME 88.6 FL (78-98); MEAN PLATELET VOLUME 7.7 FL (7.4-10.4); MONOCYTES # (AUTO) 1.8 X10'3 (0-0.9); MONOCYTES % (AUTO) 9.4 % (2-12); NEUTROPHILS # (AUTO) 14.8 X10'3 (1.8-7.7); NEUTROPHILS % (AUTO) 78.8 % (42-75); PLATELET COUNT 354 X10'3 (140-440); RED BLOOD COUNT 2.97 X10'6 (4.20-5.60); RED CELL DISTRIBUTION WIDTH 15.8 % (11.5-14.5); WHITE BLOOD COUNT 18.8 X10'3 (4.5-11.0)
[2023-09-05 08:04] LABS: APTT 30 SECONDS (22-32); PROTHROMBIN TIME 10.6 SECONDS (9.0-12.0)
[2023-09-05 08:17] LABS: ALANINE AMINOTRANSFERASE 18 U/L (12-78); ALBUMIN 1.3 G/DL (3.4-5.0); ALBUMIN/GLOBULIN RATIO 0.3 (1.1-1.5); ALKALINE PHOSPHATASE 86 IU/L (46-116); ANION GAP 15 (8-16); ASPARTATE AMINO TRANSFERASE 20 U/L (10-37); BILIRUBIN,TOTAL 0.2 MG/DL (0.1-1.0); BLOOD UREA NITROGEN 82 MG/DL (7-18); BUN/CREATININE RATIO 62.6 (10.0-20.0); CALCIUM 8.6 MG/DL (8.5-10.1); CHLORIDE 115 MMOL/L (99-107); CREATININE 1.31 MG/DL (0.40-0.90); GLUCOSE 152 MG/DL (70-104); PHOSPHORUS 4.7 MG/DL (2.3-4.5); SODIUM 148 MMOL/L (135-145); TOTAL CARBON DIOXIDE 17.8 MMOL/L (24-32); TOTAL PROTEIN 5.8 G/DL (6.4-8.2); eCRCL 48 ML/MIN; eGFR 41 ML/MIN
[2023-09-05 08:27] LABS: POTASSIUM 2.5 MMOL/L (3.5-5.1)
[2023-09-05 10:00] VITALS: BP 145/70; PULSE 95; RESP 14; TEMP 98.8; O2SAT 96
[2023-09-05 10:14] LABS: PREALBUMIN 17.7 MG/DL (19-36)
== END 2023-09-05 18:25 | DRG 223 ==
LOC: ER 12:45 → ED HOLD 15:20 → ORTHO 4S 20:05
PROVIDERS: ADMIT Internal Medicine; ATTEND Internal Medicine
PROC: 0WQFXZ2 Repair Abdominal Wall, Stoma, External Approach (ICD-10-PCS; principal; 2023-09-03 18:00)
DX: K94.03 Colostomy malfunction (principal); G93.40 Encephalopathy, unspecified; L89.154 Pressure ulcer of sacral region, stage 4; J90 Pleural effusion, not elsewhere classified; N17.9 Acute kidney failure, unspecified; A04.72 Enterocolitis due to Clostridium difficile, not specified as recurrent; E11.22 Type 2 diabetes mellitus with diabetic chronic kidney disease; J96.11 Chronic respiratory failure with hypoxia; D64.9 Anemia, unspecified; E11.42 Type 2 diabetes mellitus with diabetic polyneuropathy; Z93.0 Tracheostomy status; E87.6 Hypokalemia; E78.5 Hyperlipidemia, unspecified; I12.9 Hypertensive chronic kidney disease with stage 1 through stage 4 chronic kidney disease, or unspecified chronic kidney disease; N18.9 Chronic kidney disease, unspecified; G89.29 Other chronic pain; J98.11 Atelectasis; Y83.3 Surgical operation with formation of external stoma as the cause of abnormal reaction of the patient, or of later complication, without mention of misadventure at the time of the procedure; N39.0 Urinary tract infection, site not specified; Z87.01 Personal history of pneumonia (recurrent); Y92.89 Other specified places as the place of occurrence of the external cause; Z88.6 Allergy status to analgesic agent; Z79.899 Other long term (current) drug therapy; Z59.00 Homelessness unspecified; Z86.73 Personal history of transient ischemic attack (TIA), and cerebral infarction without residual deficits; Z93.1 Gastrostomy status; Z87.440 Personal history of urinary (tract) infections; Z74.01 Bed confinement status; Z87.891 Personal history of nicotine dependence
CPT/HCPCS: 36415; 71045; 74176; 80053; 81001; 82948; 83605; 83690; 83735; 84100; 84132; 84134; 84145; 84484; 85025; 85610; 85730; 86885; 86900; 86901; 86920; 87040; 87081; 87088; 94640; 94760; 99285; A4618; A4620; A6209; A6212; A6213; A6243; A6253; A6449; A7000; G0378; J0131; J0690; J0696; J1100; J1815; J2405; J3010; J3480; J3490; J7030; J7120